=== PATIENT | female | born 1975 | race Caucasian/White ===

== ENCOUNTER → 2017-10-15 10:20 | Outpatient (CLI) | payer BC, SELFPAY ==
--- NOTE | 2017-10-15 10:28 | XR_ITS ---
XR ankle RT min 3V HISTORY: ITS.REASON: RT ANKLE INSTABILITY ORDERING PHYSICIAN: Shanda Sands PATIENT AGE: 41 years Comparison: None FINDINGS: No fracture or dislocation. No lytic or blastic change. There is normal mineralization.. The joint spaces are well-preserved. No significant degenerative/arthritic changes. No erosive changes evident. The ankle mortise is not widened. No talar dome defects IMPRESSION: Negative ankle, no acute finding
== END ==
PROVIDERS: PCP Nurse Practitioner Family; Visit Provider Nurse Practitioner Family
DX: M25.371 Other instability, right ankle (principal)
CPT/HCPCS: 73610

== ENCOUNTER → 2017-10-26 15:43 | Outpatient (CLI) | payer BC, SELFPAY ==
--- NOTE | 2017-10-26 15:46 | MR_ITS ---
MR ankle RT wo con CLINICAL INDICATION: Right-sided ankle pain laterally with popping sound ITS.REASON: RIGHT ANKLE INSTABILITY ORDERING PHYSICIAN: Shanda Sands PATIENT AGE: 41 years Comparison: 10/15/2017 FINDINGS: No ligamentous or tendinous abnormality is evident. There is a small amount fluid in the tibiofibular region. This is nonspecific. Injured talofibular ligament appears intact as does the posterior talofibular ligament and the tibiofibular ligaments. There is a small area of increased isointense T1 and slightly increased T2 signal along the lateral aspect of the waist of the talus and could be due to a small fracture or loose body. Is not readily apparent on the radiograph. CT may confirm if this is an area of clinical concern. IMPRESSION: 1. Possible small fracture or loose body along the neck of the talus laterally. CT may be of further value for confirmation. 2. Small ankle joint effusion. 3. Otherwise negative MRI of the right ankle
== END ==
PROVIDERS: Family Provider Nurse Practitioner Family; PCP Nurse Practitioner Family; Visit Provider Nurse Practitioner Family
DX: M25.371 Other instability, right ankle (principal)
CPT/HCPCS: 73721

== ENCOUNTER → 2017-11-02 07:54 | Outpatient (CLI) | payer BC, SELFPAY ==
--- NOTE | 2017-11-02 07:59 | CT_ITS ---
CT ankle RT wo con INDICATION: ITS.REASON: CLOSED NONDISPLACED FRACTURE RT TALUS, RT ANKLE INSTABILITY, right ankle pain ORDERING PHYSICIAN: Shanda Sands PATIENT AGE: 41 years COMPARISON: 10/26/2017 TECHNIQUE: Axial images are obtained without contrast. Sagittal and coronal reformatted images are reviewed as well. All CT scans at the facility use one or more dose reduction, viz: automated exposure control; ma/kV adjustment per patient size (including targeted exams where dose is matched to indication; i.e. head); or iterative reconstruction technique. FINDINGS: There was a question of a nondisplaced fracture involving the neck of the talus laterally on previous MRI. High-resolution CT performed for further evaluation. No definite fracture is apparent. There is a small osteophyte projecting off of the lateral aspect of the mid aspect of the talus which may correspond to the MRI abnormality. No lytic or blastic change. Small bone on the present within the talus and the navicular IMPRESSION: No acute fracture. Small osteophyte noted at the talus which may contribute to the MRI abnormality
== END ==
PROVIDERS: Family Provider Nurse Practitioner Family; PCP Nurse Practitioner Family; Visit Provider Nurse Practitioner Family
DX: S92.114D Nondisplaced fracture of neck of right talus, subsequent encounter for fracture with routine healing (principal); M25.371 Other instability, right ankle
CPT/HCPCS: 73700

== ENCOUNTER → 2017-11-30 08:25 | Outpatient (CLI) | payer BC, SELFPAY ==
--- NOTE | 2017-11-30 08:26 | XR_ITS ---
XR DEXA axial skeleton HISTORY: Amenorrhea, early menopause ITS.REASON: Z78.0 ORDERING PHYSICIAN: Josh Lam MD PATIENT AGE: 42 years COMPARISON: None FINDINGS: The BMD measured at the AP Spine L1-L4 femoral neck is 0.884 g/cm squared with a T score of -2.5. This is considered Osteoporotic according to the World Health Organization criteria. Fracture risk is High. Treatment is advised. IMPRESSION: Osteoporosis with high fracture risk. Treatment recommended. Recommend follow-up exam November 2018
== END ==
PROVIDERS: Family Provider Nurse Practitioner Family; PCP Nurse Practitioner Family; Visit Provider Obstetrics & Gynecology
DX: Z13.820 Encounter for screening for osteoporosis (principal); Z78.0 Asymptomatic menopausal state
CPT/HCPCS: 77080

== ENCOUNTER 2018-01-07 08:38 | Outpatient (CLI) | payer BC, SELFPAY ==
[2018-01-07 09:00] VITALS: BP 112/71; PULSE 95; RESP 20; TEMP 37.1; O2SAT 96
[2018-01-07 09:15] VITALS: BP 113/72; PULSE 66; RESP 20; TEMP 36.9; O2SAT 96
== END 2018-01-07 09:20 | disposition home or self-care (01) ==
LOC: INF 08:39
PROVIDERS: Family Provider Nurse Practitioner Family; PCP Nurse Practitioner Family; Visit Provider Obstetrics & Gynecology
DX: M81.0 Age-related osteoporosis without current pathological fracture (principal)
CPT/HCPCS: 96372; J0897

== ENCOUNTER 2018-07-08 08:56 | Outpatient (CLI) | payer BC, SELFPAY ==
[2018-07-08 09:08] VITALS: BP 124/76; PULSE 104; RESP 18; TEMP 36.6; O2SAT 97
== END 2018-07-08 09:40 | disposition home or self-care (01) ==
LOC: INF 08:56
PROVIDERS: Visit Provider Nurse Practitioner Obstetrics & Gynecology
DX: M81.0 Age-related osteoporosis without current pathological fracture (principal)
CPT/HCPCS: 96372; J0897

== ENCOUNTER → 2018-10-16 07:37 | Outpatient (CLI) | payer BC, SELFPAY ==
--- NOTE | 2018-10-16 07:43 | US_ITS ---
US liver HISTORY: ITS.REASON: ELEVATED LIVER ENZYMES ORDERING PHYSICIAN: Nora Benoit MD PATIENT AGE: 42 years COMPARISON: None FINDINGS: PANCREAS:Unremarkable. No obvious mass or abnormal fluid collection. No ductal dilatation LIVER:No focal liver lesions demonstrated. Homogeneous echogenicity. No intrahepatic biliary ductal dilatation evident. There is appropriate direction of blood flow within a nondilated portal vein RIGHT KIDNEY:Unremarkable. Normal size and echogenicity. No hydronephrosis LEFT KIDNEY:Unremarkable. No hydronephrosis. Normal size and echogenicity. Prior cholecystectomy.. Common bile duct is normal at 3 mm. IMPRESSION: Prior cholecystectomy otherwise negative right upper quadrant/hepatic ultrasound.
== END ==
PROVIDERS: PCP Family Medicine; Visit Provider Family Medicine
DX: R74.8 Abnormal levels of other serum enzymes (principal)
CPT/HCPCS: 76705

== ENCOUNTER → 2019-10-20 09:44 | Outpatient (CLI) | payer BC, SELFPAY ==
--- NOTE | 2019-10-20 09:58 | XR_ITS ---
PROCEDURE: XR LUMBAR SPINE MIN 4V CLINICAL INDICATION: LOW BACK PAIN COMPARISON: LS5 LUMBAR SPINE 5 VIEWS from 09/04/2016 FINDINGS: There are no significant changes. Joint spaces are intact. Mild bilateral L4-5 and L5-S1 facet arthropathy again demonstrated. There is no fracture or dislocation. SI joints are intact. IMPRESSION: No fracture, mild L4-5 and L5-S1 facet arthropathy Dictated by: Travis Nichols 10/20/2019 10:36 Electronically signed by Travis Nichols in [place] 10/20/2019 10:36
== END ==
PROVIDERS: PCP Family Medicine; Visit Provider Nurse Practitioner Family
DX: M54.5 Low back pain (principal)
CPT/HCPCS: 72110

== ENCOUNTER → 2020-01-01 11:58 | Outpatient (CLI) | payer BC, SELFPAY ==
[2020-01-01 15:44] LABS: Coronavirus 19 IgG Antibody Negative (Negative); Coronavirus 19 IgM Antibody Negative (Negative)
== END ==
PROVIDERS: PCP Family Medicine; Visit Provider Nurse Practitioner Family
DX: Z03.818 Encounter for observation for suspected exposure to other biological agents ruled out (principal)
CPT/HCPCS: 36415; 86328

== ENCOUNTER 2020-07-11 17:25 | Emergency (ER) | payer BC, SELFPAY ==
[2020-07-11 17:38] VITALS: BP 121/93; PULSE 114; RESP 20; TEMP 36.1; O2SAT 96; BMI 32.4
--- NOTE | 2020-07-11 18:16 | HMH.EDUTC ---
[facility] [place] Disposition Clinical Impression: Laceration of left upper arm Disposition: Home, Self-Care Condition on Discharge: Good Instructions: How to Care for a Laceration After Repair, DI for Laceration Repair -- Simple Additional Instructions: Keep the wound clean and dry. Keep a dressing on it if you are going to be getting it dirty. Watch the for signs of infection, such as redness, swelling, drainage, fever. etc. Take tylenol or ibuprofen for pain. Take the antibiotics (keflex) as directed. Follow up with your regular doctor. Return in 7 to 10 days to have the sutures removed. GO TO THE ER FOR ANY WORSENING SYMPTOMS OR CONCERNS. Prescriptions: cephALEXin [cephALEXin 500mg capsule] 500 mg PO Q6H 10 Days #40 cap Transmission Status: Received by [id number] Referrals: Shanda Sands APRN [Primary Care Provider] - Time of Disposition: 18:19 Medical Decision Making - Medical Records Medical records reviewed: No: I reviewed the patient's medical records. - Jason Inquiry Pt receiving controlled substance: No Vital Signs: 07/11/20 17:38 07/11/20 18:18 Temperature 97 F L 98 F Temperature Source Tympanic Pulse Rate 105 H Pulse Rate [Right] 114 H Respiratory Rate 20 16 Blood Pressure 124/89 Blood Pressure [Right Arm] 121/93 H Blood Pressure Mean [Right Arm] 102 Blood Pressure Source [Right Arm] Automatic Cuff Blood Pressure Position [Right Arm] Sitting 02 Sat by Pulse Oximetry 96 Oxygen Delivery Method Room Air Orders (Tests/Meds): ED MEDICATIONS Discontinued Medications Generic Name Dose Route Start Last Admin Trade Name Frantz PRN Reason Stop Dose Admin Lidocaine HCl 5 ml 07/11/20 17:46 07/11/20 17:57 Lidocaine 1% 5ml Pf Vial IJ 07/11/20 17:47 5 ml ONCE ONE Administration Tetanus/Reduced Diphtheria/Acell Pertussis 0.5 ml 07/11/20 17:42 07/11/20 17:56 Tet/Diphth/Pert-Adult 0.5ml Syringe IM 07/11/20 17:43 0.5 ml .ONCE ONE Administration [facility] HPI - General Stated complaint: AO 07/11 fell injured L Elbow Time Seen by Provider: 07/11/20 17:50 Mode of Arrival: Ambulatory Source of Information: Spouse Limitations: No Limitations Description of Symptoms (Recalled from Triage Doc. by RN): FELL OVER FIRE PLACE AND HIT HER LEFT ELBOW ITS LACERATED ABOUT A HALF INCH. HEENT Symptoms (Recalled from RN notes): No Resp Symptoms (Recalled from RN notes): No Skin Symptoms (Recalled from RN notes): Yes (LACERATION ON L ELBOW) MS Symptoms (Recalled from RN notes): No Functional Status (Recalled from RN notes): NA - History of Present Illness Provider Complaint: She states that she fell while out of town yesterday evening and hit her elbow. She has a laceration on her left elbow. This occured at around midnight last night (18 hours ago). - Related Data Home Medications Medication Instructions Recorded Confirmed cyclobenzaprine 10 mg tablet 10 mg PO NEEDED PRN 30 Days #90 05/10/17 05/23/19 diclofenac sodium 75 mg 75 mg PO DAILY 90 Days #180 05/10/17 05/23/19 tablet,delayed release primidone 50 mg tablet 100 mg PO QID tab 05/10/17 05/23/19 cholecalciferol (vitamin D3) 50 2,000 unit PO DAILY cap 11/26/17 05/23/19 mcg (2,000 unit) capsule duloxetine 30 mg capsule,delayed 30 mg PO BID 11/26/17 05/23/19 release gabapentin 100 mg capsule 100 mg PO QHS 11/26/17 05/23/19 Montelukast Sodium [Singulair] 10 mg PO QAM 07/08/18 05/23/19 Previous Rx's Medication Instructions Recorded denosumab 60 mg/mL subcutaneous 60 mg SQ [id number] #1 ml 01/13/19 syringe [id number]-[id number]-LD 10 ml PO Q4-6H PRN #200 ml 05/23/19 2 mg-30 mg-10 mg/5 mL oral syrup cephALEXin [cephALEXin 500mg 500 mg PO Q6H 10 Days #40 cap 07/11/20 capsule] Allergies Allergy/AdvReac Type Severity Reaction Status Date / Time azithromycin [AZITHROMYCIN] Allergy Mild I-HIVES Verified 05/23/19 11:33 - Worker's Comp Is this a Worker's Comp
[2020-07-11 18:18] VITALS: BP 124/89; PULSE 105; RESP 16; TEMP 36.6
== END 2020-07-11 18:26 | disposition home or self-care (01) ==
PROVIDERS: Emergency Provider Nurse Practitioner Family; PCP Nurse Practitioner Family
DX: S51.012A Laceration without foreign body of left elbow, initial encounter (principal); W01.0XXA Fall on same level from slipping, tripping and stumbling without subsequent striking against object, initial encounter; Y92.019 Unspecified place in single-family (private) house as the place of occurrence of the external cause; Z23 Encounter for immunization; M81.0 Age-related osteoporosis without current pathological fracture; M79.7 Fibromyalgia
CPT/HCPCS: 12001; 90471; 90715; 99202; G0463

== ENCOUNTER 2020-08-30 14:07 | Emergency (ER) | payer BC, SELFPAY ==
[2020-08-30] VITALS (7 sets, daily range): BP systolic 81–121; BP diastolic 44–78; PULSE 76–106; RESP 18; TEMP 36.6–36.8; O2SAT 94–99; BMI 32.9
--- NOTE | 2020-08-30 15:21 | XR_ITS ---
PROCEDURE: XR CHEST PORTABLE CLINICAL HISTORY: weakness, covid 19 + COMPARISON: No exams were available for comparison FINDINGS: The cardiomediastinal silhouette and pulmonary vascularity are within normal limits. Patchy ground-glass density is present in the right midlung laterally and in both lower lobes. No effusions No acute bony abnormalities. IMPRESSION: Patchy ground-glass density in both lower lobes suspicious for Covid19 pneumonia Dictated by: Celestine Gutierrez MD 08/30/2020 15:52 Celestine Gutierrez MD in [place] 08/30/2020 15:52
[2020-08-30 15:35] LABS: Basophils % 0.5 % (0.1-2.0); Eosinophils % 0.6 % (0.1-12.0); Hematocrit 40.8 % (37.0-47.0); Hemoglobin 13.5 g/dL (12.2-16.2); Lymphocytes # 1.5 K/mm3 (0.7-4.5); Lymphocytes % 43.2 % (10-50); Mean Corpuscular HGB Conc 33.2 g/dL (31.8-35.4); Mean Corpuscular Hemoglobin 29.2 pg (27.0-31.2); Mean Platelet Volume 8.2 fl (7.4-10.4); Monocytes # 0.2 K/mm3 (0.1-1.0); Monocytes % 6.4 % (1.7-9.3); Neutrophils # 1.7 K/mm3 (1.8-7.8); Neutrophils % 49.3 % (37.0-80.0); Platelet Count 182 K/mm3 (142-424); Red Blood Count 4.63 M/mm3 (4.20-5.40); Red Cell Distribution Width 12.7 % (11.5-17.5); White Blood Count 3.4 K/mm3 (4.8-10.8)
[2020-08-30 15:41] LABS: Alanine Aminotransferase 45 U/L (12-78); Albumin Level 4.3 g/dl (3.5-5.0); Albumin/Globulin Ratio 1.4 (1.1-1.8); Alkaline Phosphatase 93 U/L (38-126); Anion Gap 11.6 mEq/L (5-15); Aspartate Amino Transferase 34 U/L (14-36); Bilirubin,Total 0.4 mg/dl (0.2-1.3); Blood Urea Nitrogen 7 mg/dl (7-17); Carbon Dioxide 24 mmol/L (22.0-30.0); Chloride 105 mmol/L (98-107); Creatinine Clearance Estimated 127 mL/min (50-200); Estimated Glomerular Filt Rate 78 ml/min (>60); GFR (African American) 94 ML/MIN (>60); Glucose 93 mg/dl (74-100); Potassium 3.6 mmoL/L (3.5-5.1); Sodium 137 mmol/L (136-145); Total Protein,Serum 7.3 g/dl (6.3-8.2)
--- NOTE | 2020-08-30 16:30 | HMH.EDGENADL ---
ED Disposition Clinical Impression: Weakness Disposition: Home, Self-Care Condition on Discharge: Good Instructions: Nausea and Vomiting-Adult Additional Instructions: Checked your labs and they showed no acute findings chest x-ray shows bilateral pneumonia consistent with COVID-19 we have given you IV fluids please follow-up as needed Prescriptions: Ondansetron [Zofran 4mg ODT] 4 mg PO NEEDED PRN 10 Days #14 tab.rapdis PRN Reason: Nausea Transmission Status: Pending to [id number] Referrals: Nora Benoit MD [Primary Care Provider] - Forms: Work/School Release Time of Disposition: 16:36 - Critical Care Critical Care Time: No Attestation: On 08/30/20, the high probability of a clinically significant, sudden or life threatening deterioration of the following system(s) required my full and direct attention, intervention and personal management. The time I documented below is in addition to time spent performing reported procedures but includes the following listed in this critical care notation. Medical Decision Making - Medical Records Medical records reviewed: Yes: I reviewed the patient's medical records. MR Comment: PATIENT REPORTS SHE WAS DIAGNOSED WITH COVID ON 08/25/20. PT REPORTS FEELING WEAK, N/V/D AND JUST MALAISE. CBC and CMP and these showed no acute findings; chest x-ray shows bilateral groundglass opacities consistent with Covid pneumonia patient states she is feeling much better after hydration and is ready to go home - Jason Inquiry Pt receiving controlled substance: No Vital Signs: 08/30/20 14:08 Temperature 97.9 F Temperature Source Oral Pulse Rate [Right] 106 H Respiratory Rate 18 Blood Pressure [Right Arm] 92/56 L Blood Pressure Mean [Right Arm] 68 02 Sat by Pulse Oximetry 99 Oxygen Delivery Method Room Air - Lab Data Lab results reviewed: Yes: I reviewed the patient's lab results. Lab Results 08/30/20 14:55: WBC 3.4 L, RBC 4.63, Hgb 13.5, Hct 40.8, MCV 88.0, MCH 29.2, MCHC 33.2, RDW 12.7, Plt Count 182, MPV 8.2, Neut % (Auto) 49.3, Lymph % (Auto) 43.2, [place] % (Auto) 6.4, Eos % (Auto) 0.6, Baso % (Auto) 0.5, Neut # (Auto) 1.7 L, Lymph # (Auto) 1.5, [place] # (Auto) 0.2, Eos # (Auto) 0.0, Baso # (Auto) 0.0 08/30/20 14:55: Sodium 137, Potassium 3.6, Chloride 105, Carbon Dioxide 24, Anion Gap 11.6, BUN 7, Creatinine 0.80, Estimated Creat Clear 127, Estimated GFR 78, Est GFR ( Amer) 94, Glucose 93, Calcium 9.0, Total Bilirubin 0.4, AST 34, ALT 45, Alkaline Phosphatase 93, Total Protein 7.3, Albumin 4.3, Globulin 3.0, Albumin/Globulin Ratio 1.4 Result diagrams: 08/30/20 14:55 08/30/20 14:55 Orders (Tests/Meds): ED MEDICATIONS Discontinued Medications Generic Name Dose Route Start Last Admin Trade Name Freq PRN Reason Stop Dose Admin Sodium Chloride 1,000 mls @ 999 mls/hr 08/30/20 15:30 08/30/20 15:24 Sod Chlor 0.9% 1000ml Bag IV 08/30/20 16:30 999 mls/hr .Q1H1M KARI Administration Ondansetron HCl 4 mg 08/30/20 15:22 08/30/20 15:24 Ondansetron 4mg/2ml Vial IV 08/30/20 15:23 4 mg ONCE ONE Administration ORDERS Category Date Time Status Covid-19 Nasal PCR ([facility]) Routine Lab 08/30/20 15:00 Received Covid-19 Nasal PCR ([facility]) Routine Lab 08/30/20 15:00 Received Lactic Acid Stat Lab 08/30/20 14:55 Received Blood Culture Stat Micro 08/30/20 15:05 Received General Adult HPI - General Chief complaint: Nausea/Vomiting/Diarrhea Stated complaint: covid+, weakness Time Seen by Provider: 08/30/20 16:21 Mode of Arrival: Ambulatory Source of Information: Patient Limitations: No Limitations Description of Symptoms (Recalled from ER Triage Doc. by RN): PATIENT REPORTS SHE WAS DIAGNOSED WITH COVID ON 08/25/20. PT REPORTS FEELING WEAK, N/V/D AND JUST MALAISE. - History of Present Illness HPI narrative: PATIENT REPORTS SHE WAS DIAGNOSED WITH COVID ON 08/25/20. PT REPORTS FEELING WEAK, N/V/D AND JUST MALAISE. Onset (ago): h
[2020-08-30 17:01] LABS: Lactic Acid 0.6 mmol/L (0.7-2.1)
--- NOTE | 2020-08-30 19:17 | PC.NURSE ---
called and spoke to mrs. leyva about her positive covid. she informed she was tested Sunday and was positive, i informed her to continue to follow the health department recommendations.
== END 2020-08-30 17:10 | disposition home or self-care (01) ==
PROVIDERS: Emergency Provider Emergency Medicine; PCP Family Medicine
DX: U07.1 COVID-19 (principal); M81.0 Age-related osteoporosis without current pathological fracture; M79.7 Fibromyalgia
CPT/HCPCS: 71045; 80053; 83605; 85025; 87040; 96365; 99283; J2405; U0003

== ENCOUNTER → 2020-11-30 20:59 | Outpatient (CLI) | payer BC, SELFPAY | PROVIDERS: Visit Provider Nurse Practitioner Family | DX: Z11.52 Encounter for screening for COVID-19 (principal) | CPT/HCPCS: U0003 ==

== ENCOUNTER → 2021-08-29 09:57 | Outpatient (CLI) | payer BC, SELFPAY ==
--- NOTE | 2021-08-29 10:03 | XR_ITS ---
FINAL REPORT CLINICAL HISTORY: LT KNEE PAIN FINDINGS: LEFT KNEE: Three views of the left knee were obtained. There is no acute fracture or dislocation. Mild degenerative change with medial compartment narrowing. There is no joint effusion. Soft tissues are unremarkable. IMPRESSION: Mild degenerative change. Reviewed, Interpreted and Dictated by Jose Farris III, MD Transcribed by Sachin Craig Authenticated by Jose Farris III, MD on 08/29/2021 11:48:06 AM [facility]
--- NOTE | 2021-08-29 10:03 | XR_ITS ---
FINAL REPORT CLINICAL HISTORY: RT KNEE PAIN, knot on lateral side and under patella FINDINGS: RIGHT KNEE: Three views of the right knee were obtained. There is no acute fracture or dislocation. Mild degenerative change with medial compartment narrowing. There is no joint effusion. Soft tissues are unremarkable. IMPRESSION: Mild degenerative change. Reviewed, Interpreted and Dictated by Jose Farris III, MD Transcribed by Sachin Craig Authenticated by Jose Farris III, MD on 08/29/2021 11:48:11 AM [facility]
== END ==
PROVIDERS: PCP Nurse Practitioner Family; Visit Provider Nurse Practitioner Family
DX: M25.562 Pain in left knee (principal); M25.561 Pain in right knee
CPT/HCPCS: 73562

== ENCOUNTER → 2021-09-12 14:09 | Outpatient (CLI) | payer BC, SELFPAY | PROVIDERS: Visit Provider Surgery | DX: Z01.812 Encounter for preprocedural laboratory examination (principal); Z11.52 Encounter for screening for COVID-19; R13.10 Dysphagia, unspecified; Z13.810 Encounter for screening for upper gastrointestinal disorder | CPT/HCPCS: C9803; U0003; U0005 ==

== ENCOUNTER 2021-09-13 08:34 | Day surgery (SDC) | payer BC, SELFPAY ==
[2021-09-12 12:28] VITALS: BMI 31.6
[2021-09-13 08:54] VITALS: BP 122/79; PULSE 97; RESP 18; TEMP 36.3; O2SAT 989
[2021-09-13 10:00] VITALS: O2SAT 97
--- NOTE | 2021-09-13 10:14 | HMH.SCOPE ---
- Procedure: Date: 09/13/21 Patient Date of :: 1975 Procedure Performed:: Esophagogastroduodenoscopy with biopsy Indications:: Dysphagia Performing Provider:: Freddie Hernández MD Referring Provider:: . Sedation:: Monitored anesthesia care Procedure:: After informed consent was obtained the patient was taken to the endoscopy suite. Sedation ensued after the patient was transferred to the left lateral decubitus position. Pulse, blood pressure, and oxygen saturation were monitored throughout the procedure. The endoscope was advanced beyond the duodenal bulb. Retroflexion within the gastric lumen was accomplished. The gastroscope was carefully removed and the patient was transferred to recovery in stable condition. Please see findings and specimens below for detail. Findings:: Distal esophagitis with focal shallow ulceration Small sliding hiatal hernia Specimens:: Antral biopsy Distal esophageal biopsy Recommendations:: Proton pump inhibition Likely repeat EGD in 6-8 weeks Barium swallow and possible modified barium swallow to be considered Complications:: No immediate Estimated blood obtained (mL): 1
[2021-09-13 10:15] VITALS: BP 109/75; PULSE 88; RESP 16; TEMP 36.6; O2SAT 93
--- NOTE | 2021-09-13 10:17 | HMH.ANESCL ---
[facility] Anesthesia Checklist - Structural Data Admitted From: Home Planned Operative Procedure/s: egd Consent for Planned Operative Procedure(s) Verified: Yes - Airway Assessment C-Spine Mobility Assessed: Yes TMJ Mobility Assessed: Yes Dentition: Good Dentition - Neurological Assessment Level of Consciousness: Awake, Alert, Appropriate - Anesthesia Plan Anesthesia Risk discussed: Yes Anesthesia Plan: Verified ASA Class: II Anesthesia Type: MAC [facility] History I have reviewed the patient's past medical history: Yes Medical History: Reports:: Osteoporosis Denies:: Cancer, Diabetes Mellitus Type 1, Diabetes Mellitus Type 2, Internal Pacemaker, MRSA, Seizures *Have you ever received a pneumonia vaccine?: No *Have you received a flu vaccine this season?: No Other Medical History: Reports: Fibromyalgia, Osteoporosis Anesthesia experience/problems:: none Laterality Cases: Bilateral: Other Other Surgeries: Yes: Hysterectomy-Total, Tubal Ligation, Other. No: Pacemaker Amputation: No Fractures: No - *Social History Last grade of school completed: Some college Smoking Status: Never smoker Alcohol Intake: never Substance Use Type: denies use *Occupational Status:: unemployed Housing: house Household Members: spouse *Travel in the last 8 weeks: None Family Hx:: Cancer, Diabetes, Heart Attack, Hypertension
[2021-09-13 10:25] VITALS: BP 104/82; PULSE 89; RESP 16; O2SAT 93
[2021-09-13 10:35] VITALS: BP 112/69; PULSE 78; RESP 16; O2SAT 96
[2021-09-13 10:55] VITALS: BP 116/82; PULSE 77; RESP 16; TEMP 36.6; O2SAT 98
--- NOTE | 2021-09-13 10:59 | SUR.PHASEII ---
Pt instructed to follow clear liquid today, followed by full liquid for a few days and then soft diet til follow-up. Pt and spouse aware that MD instructed use of OTC nexium twice daily as well.
== END 2021-09-13 10:45 | disposition home or self-care (01) ==
LOC: OUTP 08:35
PROVIDERS: PCP Nurse Practitioner Family; Visit Provider Surgery
PROC: 0DJ08ZZ Inspection of Upper Intestinal Tract, Via Natural or Artificial Opening Endoscopic (ICD-10-PCS; CPT 43235; principal; 2021-09-13 10:00)
DX: K22.10 Ulcer of esophagus without bleeding (principal); K44.9 Diaphragmatic hernia without obstruction or gangrene; M79.7 Fibromyalgia; M81.0 Age-related osteoporosis without current pathological fracture; Z79.899 Other long term (current) drug therapy; Z80.9 Family history of malignant neoplasm, unspecified; Z83.3 Family history of diabetes mellitus; Z82.3 Family history of stroke; Z82.49 Family history of ischemic heart disease and other diseases of the circulatory system; Z88.1 Allergy status to other antibiotic agents
CPT/HCPCS: 43239

== ENCOUNTER → 2021-10-05 08:46 | Outpatient (CLI) | payer BC, SELFPAY ==
--- NOTE | 2021-10-05 08:47 | FL_ITS ---
FINAL REPORT CLINICAL HISTORY: trouble swallowing..42 fluoro time FINDINGS: ESOPHAGRAM HISTORY: Abdominal pain, nausea. PROCEDURE: The patient ingested barium. Effervescent crystals were also administered. Spot and overhead films were obtained. FINDINGS: There is a small sliding-type hiatal hernia. There is an area of narrowing in the distal esophagus which does not allow for passage of a 13 mm barium tablet. There is mucosal irregularity at this level. IMPRESSION: Distal esophageal stricture with mucosal irregularity. This could be neoplastic or inflammatory. Correlation with recent endoscopy results recommended. Films reviewed , interpreted and dictated by Dr. Farris Transcribed by Abelardo Jo PA-C. Reviewed, Interpreted and Dictated by Jose Farris III, MD Transcribed by TITO Quiles Authenticated and [facility]
== END ==
PROVIDERS: PCP Nurse Practitioner Family; Visit Provider Surgery
DX: R13.10 Dysphagia, unspecified (principal)
CPT/HCPCS: 74220

== ENCOUNTER → 2021-11-05 10:41 | Outpatient (CLI) | payer BC, SELFPAY | PROVIDERS: PCP Family Medicine; Visit Provider Surgery | DX: Z01.812 Encounter for preprocedural laboratory examination (principal); Z20.822 Contact with and (suspected) exposure to COVID-19; Z13.810 Encounter for screening for upper gastrointestinal disorder | CPT/HCPCS: C9803; U0003; U0005 ==

== ENCOUNTER 2021-11-08 09:19 | Day surgery (SDC) | payer BC, SELFPAY ==
[2021-11-07 10:15] VITALS: BMI 31.4
[2021-11-08 09:59] VITALS: BP 112/81; PULSE 102; RESP 18; O2SAT 95
[2021-11-08 10:41] VITALS: O2SAT 95
--- NOTE | 2021-11-08 10:56 | HMH.SCOPE ---
- Procedure: Date: 11/08/21 Patient Date of :: 1975 Procedure Performed:: Esophagogastroduodenoscopy with biopsy Indications:: Dysphagia Distal esophagitis with ulceration Recent esophagogastroduodenoscopy revealed distal esophagitis with ulceration. Multiple biopsies revealed benign pathology. Follow-up barium swallow did reveal distal esophageal stricture with mucosal irregularity that was felt to either be inflammatory or neoplastic. She has been on proton pump inhibition with improvement of symptomatology. Performing Provider:: Freddie Hernández MD Referring Provider:: . Sedation:: Monitored anesthesia care Procedure:: After informed consent was obtained the patient was taken to the endoscopy suite. Sedation ensued after the patient was transferred to the left lateral decubitus position. Pulse, blood pressure, and oxygen saturation were monitored throughout the procedure. The endoscope was advanced into the gastric lumen. Retroflexion within the gastric lumen was accomplished. The gastroscope was carefully removed and the patient was transferred to recovery in stable condition. Please see findings and specimens below for detail. Findings:: Inflammatory changes between 25 cm and gastroesophageal junction Gastroesophageal junction at 38 cm Multiple small ulcerations remain; however, overall size of ulcerative component seems somewhat improved Possible secondary fungal overgrowth noted Specimens:: Multiple biopsies at 36 cm Multiple biopsies at 34 cm Multiple biopsies at 32 cm Recommendations:: Follow-up pathology Continue proton pump inhibition Likely begin cholestyramine Will begin Diflucan Complications:: No immediate Estimated blood obtained (mL): 1
[2021-11-08 11:02] VITALS: BP 99/65; PULSE 94; RESP 18; TEMP 36.1; O2SAT 96
[2021-11-08 11:13] VITALS: BP 133/69; PULSE 98; RESP 18; O2SAT 94
[2021-11-08 11:20] VITALS: BP 122/85; PULSE 89; RESP 18; O2SAT 96
== END 2021-11-08 11:30 | disposition home or self-care (01) ==
LOC: OUTP 09:20
PROVIDERS: PCP Nurse Practitioner Family; Visit Provider Surgery
PROC: 0DJ08ZZ Inspection of Upper Intestinal Tract, Via Natural or Artificial Opening Endoscopic (ICD-10-PCS; CPT 43235; principal; 2021-11-08 10:30)
DX: R13.10 Dysphagia, unspecified (principal); K22.10 Ulcer of esophagus without bleeding; E11.9 Type 2 diabetes mellitus without complications; I10 Essential (primary) hypertension; I25.10 Atherosclerotic heart disease of native coronary artery without angina pectoris; I25.2 Old myocardial infarction
CPT/HCPCS: 43239

== ENCOUNTER 2022-01-29 12:11 | Emergency (ER) | payer BC, SELFPAY ==
[2022-01-29 12:30] VITALS: BP 130/71; PULSE 93; RESP 17; TEMP 36.8; O2SAT 98; BMI 31.8
--- NOTE | 2022-01-29 12:46 | EXP.UTC ---
Discharge Plan Disposition Patient Disposition: Home, Self-Care Condition: Good Prescriptions Prescriptions: New amoxicillin 875 mg tablet 875 mg PO BID Qty: 20 0RF methylprednisolone [Medrol (Maikel)] 4 mg tablets,dose pack See Rx Instructions .Route .COMPLEX 6 Days Qty: 21 0RF Rx Instructions: taper pack; No Action primidone 50 mg tablet 100 mg PO QID cyclobenzaprine 10 mg tablet 10 mg PO NEEDED PRN (Reason: muscle spasms) 30 Days Qty: 90 Label Comments: diclofenac sodium 75 mg tablet,delayed release (DR/EC) 75 mg PO DAILY 90 Days Qty: 180 Label Comments: duloxetine 30 mg capsule,delayed release(DR/EC) 30 mg PO BID amitriptyline 25 MG tablet 25 mg PO DAILY cetirizine 10 MG capsule 10 mg PO DAILY fluconazole 40 MG/ML bottle 5 ml PO DAILY Qty: 150 0RF Referrals Follow up/Referrals: Shanda Sands APRN [Primary Care Provider] - See instructions Activity Restrictions/Add. Instructions Additional Instructions/Restrictions: Take medication as prescribed Follow up with your Family Doctor if no improvement or any worsening of symptoms Return if needed Straight to ER if any life threatening symptoms Clinical Impressions Clinical Impression: Otitis media Instructions Patient Instructions: Middle Ear Infection Discharge ED Provider: Jayleen Lucas [facility] General Stated complaint: ear pain in Lt ear Mode of Arrival: Ambulatory Source of Information: Patient Limitations: No Limitations Time Seen by Provider: 01/29/22 12:46 Description of Symptoms (Recalled from Triage Doc. by RN): PATIENT C/O LEFT EAR PAIN X 3 DAYS HEENT Symptoms (Recalled from RN notes): Yes Resp Symptoms (Recalled from RN notes): No Skin Symptoms (Recalled from RN notes): No MS Symptoms (Recalled from RN notes): No Functional Status (Recalled from RN notes): WNL History of Present Illness Provider Complaint: Patient states that she has been having pain in her left ear for about 3 days that has continued to get worse States that she is having pressure like feeling and feeling of fullness States that today it was hurting worse so she came in to get it checked out Related Data Home Medications Medication Instructions Recorded Confirmed cyclobenzaprine 10 mg tablet 10 mg PO NEEDED PRN muscle 05/10/17 11/23/21 spasms 30 days ##90 diclofenac sodium 75 mg 75 mg PO DAILY Pain 90 days ##180 05/10/17 11/23/21 tablet,delayed release primidone 50 mg tablet 100 mg PO QID seizures 05/10/17 11/23/21 duloxetine 30 mg capsule,delayed 30 mg PO BID Depression 11/26/17 11/23/21 release amitriptyline 25 mg tablet 25 mg PO DAILY mood 09/12/21 11/23/21 cetirizine 10 mg capsule 10 mg PO DAILY allergies 09/12/21 11/23/21 Previous Rx's Medication Instructions Recorded fluconazole 40 mg/mL oral 5 ml PO DAILY #150 mL 11/08/21 suspension amoxicillin 875 mg tablet 875 mg PO BID #20 tabs 01/29/22 methylprednisolone 4 mg tablets in See Rx Instructions .Route 01/29/22 a dose pack (Medrol (Maikel)) .COMPLEX 6 days #21 tabs Allergies Allergy/AdvReac Type Severity Reaction Status Date / Time azithromycin [AZITHROMYCIN] Allergy Mild I-HIVES Verified 11/23/21 14:24 Worker's Comp Is this a Worker's Comp case?: No [facility] Medical History (Updated 01/29/22 @ 12:55 by Jayleen Lucas APRN) Anxiety Surgical History (Updated 01/29/22 @ 12:37 by Debbie Anderson RN) History of cholecystectomy History of hysterectomy Social History Smoking Status: Never smoker alcohol intake: never substance use type: denies use current occupational status: disabled Travel in the last 8 weeks: None household members: spouse housing: house caffeine: Yes ROS Obtained: Yes All systems reviewed & no additional complaints except as documented and Yes Systems reviewed as appropriate & no additional
[2022-01-29 12:55] VITALS: BP 130/71; PULSE 93; RESP 17; TEMP 36.8; O2SAT 98
== END 2022-01-29 12:59 | disposition home or self-care (01) ==
PROVIDERS: Emergency Provider Nurse Practitioner; PCP Nurse Practitioner Family
DX: H66.90 Otitis media, unspecified, unspecified ear (principal)
CPT/HCPCS: 99212; G0463

== ENCOUNTER 2022-02-06 17:47 | Emergency (ER) | payer BC, SELFPAY ==
[2022-02-06 18:10] VITALS: BP 124/85; PULSE 98; RESP 16; TEMP 36.9; O2SAT 100; BMI 30.4
[2022-02-06 18:32] VITALS: BP 124/85; PULSE 98; RESP 16; TEMP 36.9; O2SAT 100
--- NOTE | 2022-02-06 18:44 | EXP.UTC ---
Discharge Plan Disposition Patient Disposition: Home, Self-Care Condition: Good Prescriptions Prescriptions: No Action primidone 50 mg tablet 100 mg PO QID cyclobenzaprine 10 mg tablet 10 mg PO NEEDED PRN (Reason: muscle spasms) 30 Days Qty: 90 Label Comments: diclofenac sodium 75 mg tablet,delayed release (DR/EC) 75 mg PO DAILY 90 Days Qty: 180 Label Comments: duloxetine 30 mg capsule,delayed release(DR/EC) 30 mg PO BID amitriptyline 25 MG tablet 25 mg PO DAILY cetirizine 10 MG capsule 10 mg PO DAILY fluconazole 40 MG/ML bottle 5 ml PO DAILY Qty: 150 0RF amoxicillin 875 mg tablet 875 mg PO BID Qty: 20 0RF methylprednisolone [Medrol (Maikel)] 4 mg tablets,dose pack See Rx Instructions .Route .COMPLEX 6 Days Qty: 21 0RF Rx Instructions: taper pack; Referrals Follow up/Referrals: Shanda Sands APRN [Primary Care Provider] - See instructions Activity Restrictions/Add. Instructions Additional Instructions/Restrictions: *Monitor Temp, Over the counter Motrin or Tylenol as directed/as needed Tylenol every 4 hours and Motrin every 6 hours (as long as your family doctor has told you that you can take it) for fever or pain. and straight to ER if unable to lower temp less than 101.0 after medication given *Warm salt water gargles may help to soothe the throat *Throat Lozenges? *Warm fluids like tea with honey may help to soothe the throat? *Sleep elevated *Humidifier/Vaporizer Follow up IMMEDIATELY for new or worsening symptoms or no Noticeable improvement over the next 48-72 hours. 911 for difficulty breathing or swallowing You were tested for today for COVID19 your test result should be back in the next 24-48 hours, you may check your results on the [facility] Make sure to take your Vitamins Vit. C Vit D and Zinc if you can take them Clinical Impressions Clinical Impression: Exposure to COVID-19 virus Stand Alone Forms Stand Alone Forms: Work/School Release Instructions Patient Instructions: Coronavirus Disease 2019, Preventing the Spread of Coronavirus Discharge Instructions Discharge ED Provider: Jayleen Lucas [facility] [place] General Stated complaint: covid expose Mode of Arrival: Ambulatory Source of Information: Patient Limitations: No Limitations Time Seen by Provider: 02/06/22 18:44 Description of Symptoms (Recalled from Triage Doc. by RN): COVID TEST D/T EXPOSURE. DENIES SYMPTOMS HEENT Symptoms (Recalled from RN notes): No Resp Symptoms (Recalled from RN notes): No Skin Symptoms (Recalled from RN notes): No MS Symptoms (Recalled from RN notes): No Functional Status (Recalled from RN notes): WNL History of Present Illness Provider Complaint: Patient states she has been around her that tested positive at home earlier for COVID and she wanted to get tested Related Data Home Medications Medication Instructions Recorded Confirmed cyclobenzaprine 10 mg tablet 10 mg PO NEEDED PRN muscle 05/10/17 11/23/21 spasms 30 days ##90 diclofenac sodium 75 mg 75 mg PO DAILY Pain 90 days ##180 05/10/17 11/23/21 tablet,delayed release primidone 50 mg tablet 100 mg PO QID seizures 05/10/17 11/23/21 duloxetine 30 mg capsule,delayed 30 mg PO BID Depression 11/26/17 11/23/21 release amitriptyline 25 mg tablet 25 mg PO DAILY mood 09/12/21 11/23/21 cetirizine 10 mg capsule 10 mg PO DAILY allergies 09/12/21 11/23/21 Previous Rx's Medication Instructions Recorded fluconazole 40 mg/mL oral 5 ml PO DAILY #150 mL 11/08/21 suspension amoxicillin 875 mg tablet 875 mg PO BID #20 tabs 01/29/22 methylprednisolone 4 mg tablets in See Rx Instructions .Route 01/29/22 a dose pack (Medrol (Maikel)) .COMPLEX 6 days #21 tabs Allergies Allergy/AdvReac Type Severity Reaction Status Date / Time azithromycin [AZITHROMYCIN] Allergy Mild I-HIVES Verified 11/23/21 14:24 Worker's Comp Is this a Worker's Comp case
== END 2022-02-06 18:51 | disposition home or self-care (01) ==
PROVIDERS: Emergency Provider Nurse Practitioner; PCP Nurse Practitioner Family
DX: Z03.89 Encounter for observation for other suspected diseases and conditions ruled out (principal); M62.838 Other muscle spasm; F41.9 Anxiety disorder, unspecified; Z20.822 Contact with and (suspected) exposure to COVID-19; Z79.51 Long term (current) use of inhaled steroids; Z79.52 Long term (current) use of systemic steroids; Z79.899 Other long term (current) drug therapy; Z88.0 Allergy status to penicillin; Z88.1 Allergy status to other antibiotic agents; Z88.3 Allergy status to other anti-infective agents
CPT/HCPCS: 99213; C9803; G0463; U0003; U0005

== ENCOUNTER → 2022-03-20 12:23 | Outpatient (CLI) | payer BC, SELFPAY ==
[2022-03-20 13:22] LABS: Basophils # 0.1 K/mm3 (0-0.2); Basophils % 1.4 % (0.1-2.0); Eosinophils # 0.2 K/mm3 (0.0-0.4); Eosinophils % 4.7 % (0.1-12.0); Hematocrit 39.9 % (37.0-47.0); Hemoglobin 13.3 g/dL (12.2-16.2); Lymphocytes # 2.5 K/mm3 (0.7-4.5); Lymphocytes % 53.7 % (10-50); Mean Corpuscular HGB Conc 33.5 g/dL (31.8-35.4); Mean Corpuscular Hemoglobin 31.3 pg (27.0-31.2); Mean Corpuscular Volume 93.7 fl (81-99); Mean Platelet Volume 8.3 fl (7.4-10.4); Monocytes # 0.3 K/mm3 (0.1-1.0); Monocytes % 5.8 % (1.7-9.3); Neutrophils # 1.6 K/mm3 (1.8-7.8); Neutrophils % 34.5 % (37.0-80.0); Platelet Count 236 K/mm3 (142-424); Red Blood Count 4.26 M/mm3 (4.20-5.40); Red Cell Distribution Width 13.1 % (11.5-17.5); White Blood Count 4.7 K/mm3 (4.8-10.8)
[2022-03-20 13:44] LABS: MANUAL DIFFERENTIAL MANUAL DIFFERENTIAL (MANUAL DIFF)
[2022-03-20 13:53] LABS: Alanine Aminotransferase 37 U/L (12-78); Albumin Level 4.4 g/dl (3.5-5.0); Albumin/Globulin Ratio 1.8 (1.1-1.8); Alkaline Phosphatase 105 U/L (38-126); Anion Gap 15.4 mEq/L (5-15); Aspartate Amino Transferase 24 U/L (14-36); Bilirubin,Total 0.3 mg/dl (0.2-1.3); Blood Urea Nitrogen 14 mg/dl (7-17); Calcium 9.2 mg/dl (8.4-10.2); Carbon Dioxide 28 mmol/L (22.0-30.0); Chloride 100 mmol/L (98-107); Estimated Glomerular Filt Rate 67 ml/min (>60); GFR (African American) 82 ML/MIN (>60); Globulin 2.5 g/dL (1.3-3.2); Glucose 107 mg/dl (74-100); Potassium 4.4 mmoL/L (3.5-5.1); Sodium 139 mmol/L (136-145); Total Protein,Serum 6.9 g/dl (6.3-8.2)
[2022-03-20 14:05] LABS: Troponin I < 0.01 ng/ml (0.00-0.034)
[2022-03-20 14:23] LABS: Thyroid Stimulating Hormone 0.39 uIU/mL (0.465-4.68)
[2022-03-20 15:48] LABS: Eosinophils % 1 % (0-3); Lymphocytes % 53 % (10-50); Monocytes % 3 % (2-9); Neutrophils % 41 % (42-76); Platelet Estimate Normal; RBC Morphology Normal; Total Cells Counted 100
== END ==
PROVIDERS: PCP Family Medicine; Visit Provider Nurse Practitioner Family
DX: R42 Dizziness and giddiness (principal); R00.0 Tachycardia, unspecified
CPT/HCPCS: 36415; 80053; 84443; 84484; 85007; 85025

== ENCOUNTER 2023-05-08 16:56 | Outpatient (CLI) | payer BC, SELFPAY ==
[2023-05-08 17:00] LABS: Adenovirus,PCR Not Detected (NotDetected); Coronavirus 19, PCR Not Detected (NotDetected); Coronavirus 229E Not Detected (NotDetected); Coronavirus NL63 Not Detected (NotDetected); Coronavirus OC43 Not Detected (NotDetected); Coronovirus HKU1,PCR Not Detected (NotDetected); Human Metapneumovirus Not Detected (NotDetected); Influenza A, PCR Not Detected (NotDetected); Influenza AH1, 2009 Not Detected (NotDetected); Influenza AH1, PCR Not Detected (NotDetected); Influenza AH3,PCR Not Detected (NotDetected); Influenza B, PCR Not Detected (NotDetected); Parainfluenza 1, PCR Not Detected (NotDetected); Parainfluenza 2, PCR Not Detected (NotDetected); Parainfluenza 3, PCR Not Detected (NotDetected); Parainfluenza 4, PCR Not Detected (NotDetected); Respiratory Syncytial Virus Not Detected (NotDetected); Rhinovirus/Enterovirus Not Detected (NotDetected)
== END 2023-05-08 23:59 ==
LOC: LAB.DROPOF 16:58
PROVIDERS: PCP Nurse Practitioner Family; Visit Provider Nurse Practitioner Family
DX: J06.9 Acute upper respiratory infection, unspecified (principal); R05.9 Cough, unspecified; R51.9 Headache, unspecified; J32.9 Chronic sinusitis, unspecified; R11.0 Nausea
CPT/HCPCS: 87581; 87632; 87635; 87798

== ENCOUNTER 2023-06-08 12:36 | Outpatient (CLI) | payer BC, SELFPAY ==
[2023-06-08 12:36] LABS: Influenza A, PCR Not Detected (NotDetected); Influenza B, PCR Not Detected (NotDetected)
[2023-06-08 13:44] LABS: Coronavirus 19, PCR Detected (NotDetected)
== END 2023-06-08 23:59 ==
LOC: LAB 12:37
PROVIDERS: PCP Nurse Practitioner Family; Visit Provider Nurse Practitioner Family
DX: R05.1 Acute cough (principal); R50.9 Fever, unspecified; U07.1 COVID-19
CPT/HCPCS: 87636

== ENCOUNTER 2023-10-01 12:23 | Outpatient (CLI) | payer BC, SELFPAY ==
--- NOTE | 2023-10-01 12:30 | XR_ITS ---
FINAL REPORT CLINICAL HISTORY: lumbago, right sided COMPARISON: 10/20/2019 FINDINGS: AP and lateral views of the lumbar spine were obtained. There is no acute fracture. There is a mild left curvature of the lumbar spine, slightly more prominent than noted on the prior exam. Vertebral body height is preserved. Mild degenerative changes present. There is mild anterolisthesis of L4 on L5, slightly more prominent than noted on the prior exam. No acute paraspinal abnormality. IMPRESSION: Mild degenerative change as described, with the lumbar curvature and mild anterolisthesis of L4 on L5 slightly more prominent than noted on the prior exam. Reviewed, Interpreted and Dictated by Jose Farris III, MD Transcribed by Nannette Michael Authenticated and [facility]
== END 2023-10-01 23:59 | disposition home or self-care (01) ==
LOC: RAD 12:24
PROVIDERS: PCP Nurse Practitioner Family; Visit Provider Nurse Practitioner Family
DX: M54.41 Lumbago with sciatica, right side (principal)
CPT/HCPCS: 72100

== ENCOUNTER 2023-11-09 13:52 | Outpatient (CLI) | payer BC, SELFPAY ==
--- NOTE | 2023-11-09 13:53 | MR_ITS ---
FINAL REPORT CLINICAL HISTORY: Right sided lower back With right sciatica. No injury or trauma. COMPARISON: None FINDINGS: Multiplanar MR imaging of the lumbar spine was performed without contrast. On the sagittal T2-weighted images, disc degeneration is seen at several levels. The vertebral alignment is normal. There is no evidence of fracture. A hemangioma is present in the L3 vertebral body. The conus has an unremarkable appearance. No significant canal stenosis is identified. L1-2: No significant central canal stenosis or neuroforaminal narrowing. L2-3: No significant central canal stenosis or neuroforaminal narrowing. L3-4: An annular bulge is present. No significant central canal stenosis or neuroforaminal narrowing. L4-5: An annular bulge is present with facet arthropathy and mild bilateral neural foraminal narrowing. L5-S1: An annular bulge is present with facet arthropathy. No significant central canal stenosis or neuroforaminal narrowing. IMPRESSION: Mild degenerative change of the lumbar spine, without canal stenosis only mild bilateral neural foraminal narrowing at the L4-5 level. Reviewed, Interpreted and Dictated by Jose Farris III, MD Transcribed by Nannette Michael Authenticated and [facility]
== END 2023-11-09 23:59 | disposition home or self-care (01) ==
LOC: RAD 13:53
PROVIDERS: PCP Nurse Practitioner Family; Visit Provider Nurse Practitioner Family
DX: M54.41 Lumbago with sciatica, right side (principal)
CPT/HCPCS: 72148

== ENCOUNTER 2023-12-17 10:43 | Outpatient (CLI) | payer BC, SELFPAY ==
--- NOTE | 2023-12-17 10:49 | XR_ITS ---
FINAL REPORT CLINICAL HISTORY: cervical neck pain COMPARISON: None FINDINGS: CERVICAL SPINE AP, lateral, oblique, and odontoid views of the cervical spine were obtained. There is no prior exam for comparison. There is no acute fracture or malalignment. There are mild anterior osteophyte formation at the C6-7 level. Vertebral body height is preserved. The precervical soft tissues are normal. There is mild reversal of the normal lordosis of the cervical spine. IMPRESSION: Mild degenerative change and mild reversal of the normal lordosis of the cervical spine suggesting muscular spasm or positioning. Reviewed, Interpreted and Dictated by Donovan Polk MD Transcribed by Nannette Michael Authenticated and [facility]
== END 2023-12-17 23:59 | disposition home or self-care (01) ==
LOC: RAD 10:44
PROVIDERS: PCP Nurse Practitioner Family; Visit Provider Nurse Practitioner Family
DX: M54.2 Cervicalgia (principal); M54.12 Radiculopathy, cervical region
CPT/HCPCS: 72050

== ENCOUNTER 2024-01-07 14:42 | Outpatient (CLI) | payer BC, SELFPAY ==
--- NOTE | 2024-01-07 14:42 | MR_ITS ---
FINAL REPORT CLINICAL HISTORY: cevical neck pain with radiculopathy to LUE COMPARISON: None FINDINGS: Multiplanar MR imaging of the cervical spine was performed without contrast. On the sagittal T2-weighted images, disc degeneration is seen throughout. There is mild kyphosis centered at C5-6. There is no evidence of fracture. The vertebral alignment is normal. The cervical spinal cord has an unremarkable appearance without evidence of mass, edema or syrinx. No significant canal stenosis is identified. The cervicomedullary junction is normal. C2-3: There is no significant canal stenosis or neural foraminal narrowing. C3-4: There is no significant canal stenosis or neural foraminal narrowing. C4-5: There is no significant canal stenosis or neural foraminal narrowing. C5-6: Annular disc bulge. Uncovertebral osteophytes. Mild bilateral neural foraminal narrowing. C6-7: Small disc osteophyte complex. Mild left neural foraminal narrowing. C7-T1: Annular disc bulge. There is no significant canal stenosis or neural foraminal narrowing. IMPRESSION: Multilevel degenerative disc disease. Reviewed, Interpreted and Dictated by Jose Farris III, MD Transcribed by Edith Gibson Authenticated and [facility]
== END 2024-01-07 23:59 | disposition home or self-care (01) ==
LOC: RAD 14:42
PROVIDERS: PCP Nurse Practitioner Family; Visit Provider Nurse Practitioner Family
DX: M54.2 Cervicalgia (principal); M54.12 Radiculopathy, cervical region
CPT/HCPCS: 72141

== ENCOUNTER 2024-01-21 13:03 | Outpatient (POV) | payer BC, SELFPAY ==
[2024-01-21 13:14] VITALS: BP 127/77; PULSE 104; RESP 16; O2SAT 97; BMI 29.9
--- NOTE | 2024-01-21 13:24 | EXP.PAIN.OV ---
HPI Data of Consult Patient: new to practice Consult date: 01/21/24 Requesting Physician: Shanta Sawant APRN Primary Care Provider: Shanda Sands APRN Consult Narrative Reason for consult: Neck pain, headache, bilateral shoulder pain, low back pain, hip pain History of present illness: Ms. Benoit is a 48 year old female who presents today as a new patient. She is a referral from Eden Sands's office. Today she rates her pain a 8 out of 10. Patient states she has pain throughout her neck with radiating symptoms into her bilateral shoulders as well as increased headache and low back and hip pain. Patient states this is all been going on since at least August. Patient states that she has had stuff in the past however it significantly worsened unrelated to any specific trauma or injury. Patient felt as though her back had moved . Patient states that she started experiencing constant headaches that started at the base of her neck and would come up into the back of her head towards her forehead. Patient states that she does have aching, throbbing sensations with pinprick sensations into her arms and hands. She does state the pain often varies depending on her activity or certain positioning. Patient feels like she has constant knots all across her shoulders. Patient states that she has tried [id number] Tylenol and ibuprofen along with heat and ice and topicals with minimal relief. Patient has also tried hot tub therapy as well as recent physical therapy with no additional change. Patient denies any prior back surgery or injection history. Patient is interested in any improvement we may be able to provide. She does state that overall the neck and headache symptoms are worse than the low back symptoms.Patient is currently managed with pregabalin 75 mg twice a day from her primary care. Patient denies any side effects from this medication. Her Jason has been reviewed and is appropriate. CC: Shanta Sawant APRN [facility] Disclaimer: The information contained in this section may have been updated after the patient was seen, as this information can be updated by other users. Medical History (Updated 01/21/24 @ 13:25 by Shanta Sawant APRN) Arthritis History of recurrent ear infection Anxiety Surgical History History of hysterectomy History of cholecystectomy Social History Smoking Status: Never smoker alcohol intake: never substance use type: denies use current occupational status: disabled Travel in the last 8 weeks: None household members: spouse housing: house caffeine: Yes Review of Systems Review of Systems Review of systems:: pertinent systems reviewed and negative unless documented below Review of systems (narrative): Review of Systems: General: No recent weight changes, no fever, no sleep disturbances Respiratory: No cough, no shortness of air, no recurring pulmonary infections Cardiovascular/peripheral vascular: No chest pain, no palpitations, no edema, no shortness of breath Gastrointestinal: No new onset incontinence, normal bowel movements reported Genitourinary: No new onset incontinence Musculoskeletal: Neck, bilateral shoulder pain, arm/hand pain, headaches, low back pain, bilateral hip pain Psychiatric: [Normal mood/affect] Neurological: [Denies weakness in extremities], [denies balance issues] Meds Home Medications and Allergies Home Medications ?Medication ?Instructions ?Recorded ?Confirmed ?Type primidone 50 mg tablet 100 mg PO QID seizures 05/10/17 12/17/23 History azelastine 137 mcg (0.1 %) nasal 2 spray intranasal BID 05/08/23 12/17/23 History spray albuterol sulfate 90 mcg/actuation 2 puff inhalation Q4-6H PRN 06/08/23 12/17/23 Rx aerosol inhaler shortness of breath or wheezing #8.5 grams celecoxib 200 mg capsule (Celebrex) 200 mg PO DAILY #30 caps 11/20/23 12/17/23 Rx fexofenadine 180 mg tablet 180 mg PO DAILY 11/20/23 12/17/23 History (Tri Allergy) methocarbamol 750 mg tablet 750 mg PO TID PRN muscle spasm #90 11/20/23 12/17/23 Rx tabs albuterol 90 mcg-budesonide 80 2 inh inhalation 6XD PRN shortness 12/17/23 12/17/23 Rx mcg/actuation HFA aerosol inhaler of breath or wheezing #10.7 grams (Airsupra) duloxetine 60 mg capsule,delayed 60 mg PO BID Depression 30 days 12/17/23 12/17/23 Rx release #60 caps pregabalin 75 mg capsule 75 mg PO BID 30 days #60 caps 01/14/24 Rx New Prescriptions to Start Prescriptions: Allergies Allergy/AdvReac Type Severity Reaction Status Date / Time azithromycin [AZITHROMYCIN] Allergy Mild I-HIVES Verified 12/17/23 09:22 Objective Narrative: Physical Exam: General: Alert and oriented x3, no acute distress, pleasant and cooperative Lungs: Respirations even and unlabored, symmetrical chest expansion Eyes: PERRL Musculoskeletal: Flexion and extension of cervical [spine] somewhat guarded secondary to pain, [antalgic gait noted] positive Spurling's test, point tenderness along right SI with positive right Lucio's, Yanira's, Gaenslen's, compression and distraction exam. Neurological: Speech clear, no gross sensory deficit Additional findings Additional findings: FINDINGS: Multiplanar MR imaging of the cervical spine was performed without contrast. On the sagittal T2-weighted images, disc degeneration is seen throughout. There is mild kyphosis centered at C5-6. There is no evidence of fracture. The vertebral alignment is normal. The cervical spinal cord has an unremarkable appearance without evidence of mass, edema or syrinx. No significant canal stenosis is identified. The cervicomedullary junction is normal. C2-3: There is no significant canal stenosis or neural foraminal narrowing. C3-4: There is no significant canal stenosis or neural foraminal narrowing. C4-5: There is no significant canal stenosis or neural foraminal narrowing. C5-6: Annular disc bulge. Uncovertebral osteophytes. Mild bilateral neural foraminal narrowing. C6-7: Small disc osteophyte complex. Mild left neural foraminal narrowing. C7-T1: Annular disc bulge. There is no significant canal stenosis or neural foraminal narrowing. IMPRESSION: Multilevel degenerative disc disease. Reviewed, Interpreted and Dictated by Jose Farris III, MD Transcribed by Edith Gibson Authenticated and . [facility] FINDINGS: Multiplanar MR imaging of the lumbar spine was performed without contrast. On the sagittal T2-weighted images, disc degeneration is seen at several levels. The vertebral alignment is normal. There is no evidence of fracture. A hemangioma is present in the L3 vertebral body. The conus has an unremarkable appearance. No significant canal stenosis is identified. L1-2: No significant central canal stenosis or neuroforaminal narrowing. L2-3: No significant central canal stenosis or neuroforaminal narrowing. L3-4: An annular bulge is present. No significant central canal stenosis or neuroforaminal narrowing. L4-5: An annular bulge is present with facet arthropathy and mild bilateral neural foraminal narrowing. L5-S1: An annular bulge is present with facet arthropathy. No significant central canal stenosis or neuroforaminal narrowing. IMPRESSION: Mild degenerative change of the lumbar spine, without canal stenosis only mild bilateral neural foraminal narrowing at the L4-5 level. Reviewed, Interpreted and Dictated by Jose Farris III, MD Transcribed by Nannette Michael Authenticated and . [facility] Assessment and Plan *Assessment and plan (1) Degenerative disc disease, cervical: Status: Acute Category: Medical Code(s): M50.30 - Other cervical disc degeneration, unspecified cervical region (2) Radiculopathy, cervical: Status: Acute Category: Medical Code(s): M54.12 - Radiculopathy, cervical region (3) Degenerative disc disease, lumbar: Status: Acute Category: Medical Code(s): M51.36 - Other intervertebral disc degeneration, lumbar region Plan Patient is experiencing significant pain in multiple areas however did have limited range of motion of her cervical spine with a positive Spurling's test. Patient did also have limited range of motion and point tenderness along her right SI with a positive right Lucio's, Yanira's, Gaenslen's, compression and distraction exam. I did discuss with the patient in future I do believe she would benefit from a cervical epidural as well as a right SI injection. We did discuss at length that the cervical symptoms were causing worsening pain and decreased function. I did review over the risk and benefits of the cervical epidural and she would like to proceed forward with this plan of care. Patient has tried and failed conservative therapy including physical therapy and continued at home stretching exercise for longer than 12 weeks. I will order the patient a compounded cream. Patient will be scheduled for a SARAH C5-C6 under fluoroscopy. Patient has been instructed to contact the clinic with any concerns before the next appointment. Dr. Wharton has reviewed this note and agrees with this plan of care. This note was dictated using voice recognition software and make contain errors or omissions. All injections are used with Lidocaine or Bupivacaine and Depo Medrol.
== END 2024-01-21 23:59 | disposition home or self-care (01) ==
LOC: SC.PAIN 13:04
PROVIDERS: PCP Nurse Practitioner Family; Visit Provider Nurse Practitioner Family
DX: M50.10 Cervical disc disorder with radiculopathy, unspecified cervical region (principal); M51.36 Other intervertebral disc degeneration, lumbar region
CPT/HCPCS: 99202; G0463

== ENCOUNTER 2024-02-12 10:35 | Day surgery (SDC) | payer BC, SELFPAY ==
[2024-02-12 11:00] VITALS: BP 143/97; PULSE 78; PULSE 79; RESP 18; O2SAT 94
--- NOTE | 2024-02-12 11:08 | P.PCN_ITS ---
Procedure Date: 02/12/24 Time: 11:00 Anesthesiologist:: Leonel Escobedo CRNA Complications:: None Pre-procedure Diagnosis:: Degenerative disc cervical spine multilevels. Cervical radiculopathy. Post-procedure Diagnosis:: Same. Indications for Procedure:: Patient is a pleasant 48-year-old female comes our clinic today for cervical epidural steroid injection. Patient reports posterior cervical neck pain is constant, dull, aching. Patient also reports bilateral arm radicular symptoms to the hands. She rates her pain 7/10. Procedure Details:: Procedure:Cervical epidural steroid injection Informed consent was obtained and the risks and benefits of the procedure were explained to the patient. The patient was taken to the procedure room and noninvasive monitors placed, including noninvasive blood pressure cuff and pulse oximeter. The neck was prepped using Chloraprep as a cleansing solution. The C6- C7 interspace was viewed using fluroscopy. The skin and subcutaneous tissues were anesthetized using lidocaine 1.5% and a 25-gauge needle. After this an 18- gauge Touhy epidural needle was placed into the C6-C7 interspace under fluroscopy guidance and advanced using loss of resistance to air until the epidural space was encountered. After confirmation of needle placement in the epidural space using contrast dye, a solution containing normal saline, 2 mL and Depo-Medrol 80 mg was incrementally injected into the cervical epidural space.~ The patient tolerated the procedure well with no complications. The patient was observed in the Pain Clinic and then discharged home neurologically intact. Plan and Disposition:: Patient was discharged without incident.
[2024-02-12 11:10] VITALS: BP 122/73; PULSE 90; RESP 16; TEMP 36.7; O2SAT 96; BMI 29.9
[2024-02-12] MEDS: IOPAMIDOL-200 (41%);10ML VIAL 10 ML IV (11:11)
[2024-02-12] MEDS: methylPREDNISolone ACETATE 80MG/ML VIAL 80 MG (11:11)
[2024-02-12 11:25] VITALS: BP 109/67; PULSE 88; RESP 16; O2SAT 96
== END 2024-02-12 11:25 | disposition home or self-care (01) ==
PROVIDERS: PCP Nurse Practitioner Family; Visit Provider Nurse Anesthetist, Certified Registered
DX: M50.30 Other cervical disc degeneration, unspecified cervical region (principal); M54.12 Radiculopathy, cervical region
CPT/HCPCS: 62321; J1010; Q9966

== ENCOUNTER 2024-02-28 09:38 | Outpatient (POV) | payer BC, SELFPAY ==
[2024-02-28 10:27] VITALS: BP 114/82; PULSE 91; RESP 16; O2SAT 95; BMI 29.9
--- NOTE | 2024-02-28 10:59 | A.OFFVIS_ITS ---
[facility] Disclaimer: The information contained in this section may have been updated after the patient was seen, as this information can be updated by other users. Medical History (Updated 02/28/24 @ 11:02 by Shanta Sawant APRN) Arthritis History of recurrent ear infection Anxiety Surgical History History of hysterectomy History of cholecystectomy Social History Smoking Status: Never smoker alcohol intake: never substance use type: denies use current occupational status: other Travel in the last 8 weeks: None household members: spouse housing: house caffeine: Yes PM Subjective & Objective Subjective Subjective:: Patient is a pleasant 48-year-old female who presents today for follow-up of her cervical epidural C6-C7 on 02/12/2024. Today she rates her pain a 4 out of 10. Patient states that she had 100% relief following this injection and did feel like it really provided significant improvement for at least 1 week. She does state that it is helping still some nail however she is stating most of her pain today is all along her low back and right hip. Patient states that she has had issues with this for the last 2 years where her right leg will occasionally have numbness in the upper thigh and just give out. Patient states that this generally would come and go and that it was not as severe as it is now. Patient states that it does interfere with her ability perform activities of daily living such as cooking and cleaning. She does state that the pain will get wors e as the day goes on up to at least a 5 or 6 out of 10. Patient does state the pain is worse with prolonged sitting or standing. Patient would like us to see about doing something for this pain. Patient denies any new falls or injuries. Patient has tried and failed conservative therapy including oral medications, heat and ice and topicals along with continued at home stretching exercise for longer than 12 weeks. Her Jason has been reviewed and is appropriate. Patient is prescribed compounded cream from our office and pregabalin from an outside provider. Review of Systems: General: No recent weight changes, no fever, no sleep disturbances Respiratory: No cough, no shortness of air, no recurring pulmonary infections Cardiovascular/peripheral vascular: No chest pain, no palpitations, no edema, no shortness of breath Gastrointestinal: No new onset incontinence, normal bowel movements reported Genitourinary: No new onset incontinence Musculoskeletal: Low back pain, right hip pain, right upper thigh pain Psychiatric: [Normal mood/affect] Neurological: [Denies weakness in extremities], [denies balance issues] Pain at rest (0-10 scale): 5 Objective Objective:: Physical Exam: General: Alert and oriented x3, no acute distress, pleasant and cooperative Lungs: Respirations even and unlabored, symmetrical chest expansion Eyes: PERRL Musculoskeletal: Flexion and extension of lumbar [spine] somewhat guarded secondary to pain, [antalgic gait noted] point tenderness along right SI with positive right Lucio's, Yanira's, Gaenslen's, compression and distraction exam Neurological: Speech clear, no gross sensory deficit Has patient had previous pain injection?: Yes Percent improvement in pain since last injection: 100% Conservative treatment options previously tried: Home exercise plan Length of treatment: Longer than 12 weeks Meds Home Medications and Allergies Home Medications ?Medication ?Instructions ?Recorded ?Confirmed ?Type primidone 50 mg tablet 100 mg PO QID seizures 05/10/17 02/28/24 History azelastine 137 mcg (0.1 %) nasal 2 spray intranasal BID 05/08/23 02/28/24 History spray albuterol sulfate 90 mcg/actuation 2 puff inhalation Q4-6H PRN 06/08/23 02/28/24 Rx aerosol inhaler shortness of breath or wheezing #8.5 grams fexofenadine 180 mg tablet 180 mg PO DAILY 11/20/23 02/28/24 History (Tri Allergy) methocarbamol 750 mg tablet 750 mg PO TID PRN muscle spasm #90 11/20/23 02/28/24 Rx tabs albuterol 90 mcg-budesonide 80 2 inh inhalation 6XD PRN shortness 12/17/23 02/28/24 Rx mcg/actuation HFA aerosol inhaler of breath or wheezing #10.7 grams (Airsupra) celecoxib 200 mg capsule See Rx Instructions .Route 02/08/24 02/28/24 Rx .COMPLEX #30 caps duloxetine 60 mg capsule,delayed See Rx Instructions .Route 02/08/24 02/28/24 Rx release .COMPLEX #60 ea pregabalin 75 mg capsule 75 mg PO BID 30 days #60 caps 02/20/24 02/28/24 Rx New Prescriptions to Start Prescriptions: Allergies Allergy/AdvReac Type Severity Reaction Status Date / Time azithromycin [AZITHROMYCIN] Allergy Mild I-HIVES Verified 12/17/23 09:22 Assessment and Plan *Assessment and plan (1) Sacroiliitis: Status: Acute Category: Medical Code(s): M46.1 - Sacroiliitis, not elsewhere classified Plan Patient is experiencing worsening pain in her low back and right hip with numbness that goes into her upper thigh. Patient did have point tenderness along her right SI with positive right Lucio's, Yanira's, Gaenslen's, compression and distraction exam. I did discuss with the patient that I do believe she would benefit from a right SI injection. Risk and benefits were discussed with the patient and she would like to proceed forward with this plan of care. Patient has tried and failed conservative therapy for longer than 12 weeks. Patient does state that she has been experiencing this pain for longer t verdugo 2 years. Patient will be scheduled for a right SI injection under fluoroscopy. Patient has been instructed to contact the clinic with any concerns before the next appointment. Dr. Wharton has reviewed this note and agrees with this plan of care. This note was dictated using voice recognition software and make contain errors or omissions. All injections are used with Lidocaine or Bupivacaine and Depo Medrol.
== END 2024-02-28 23:59 | disposition home or self-care (01) ==
LOC: SC.PAIN 09:39
PROVIDERS: PCP Nurse Practitioner Family; Visit Provider Nurse Practitioner Family
DX: M46.1 Sacroiliitis, not elsewhere classified (principal); Z73.89 Other problems related to life management difficulty
CPT/HCPCS: 99212; G0463

== ENCOUNTER 2024-03-25 09:50 | Day surgery (SDC) | payer BC, SELFPAY ==
[2024-03-25 10:03] VITALS: BP 131/77; PULSE 101; RESP 16; TEMP 36.9; O2SAT 95; BMI 29.9
[2024-03-25] MEDS: LIDOCAINE 1% 5ML PF VIAL 5 ML (10:10)
[2024-03-25] MEDS: BUPIVACAINE 0.25% 10ML INJ 25 MG IJ (10:11)
[2024-03-25 10:12] VITALS: BP 119/80; PULSE 88; RESP 18; O2SAT 97
[2024-03-25 10:41] VITALS: BP 107/74; PULSE 93; RESP 16; O2SAT 96
--- NOTE | 2024-03-25 10:51 | P.PCN_ITS ---
Procedure Date: 03/25/24 Time: 10:00 Anesthesiologist:: Leonel Escobedo CRNA Complications:: None Pre-procedure Diagnosis:: Right sacroiliitis Post-procedure Diagnosis:: Same Indications for Procedure:: Patient very pleasant 40-year-old female comes to our clinic today for right sacroiliac joint injection of local anesthetic. Due to insurance constraints we will simply inject the right sacroiliac joint with 2 cc of 1% lidocaine. Patient describes right low lumbar back pain off the midline. She reports having difficulty transitioning from sitting to standing. Difficulty with ambulation. Difficulty with sitting. She rates her pain 8/10. Procedure Details:: Details of the procedure explained to the patient. The patient taken procedure room placed in the prone position on the fluoroscopy table. The over the right buttock was cleaned using chlorhexidine as a cleansing solution. Using a 22- gauge 3 and half inch spinal needle the right sacroiliac joint was accessed in the lower one third. After negative aspiration 2 cc of 1% lidocaine was injected. Patient tolerated procedure without difficulty. There are no complications. Plan and Disposition:: Patient was reevaluated 10 minutes post procedure. She reports 90% improvement terms of her right buttock pain. She was discharged without incident.
== END 2024-03-25 10:41 | disposition home or self-care (01) ==
LOC: SC.PAINP 09:50
PROVIDERS: PCP Nurse Practitioner Family; Visit Provider Nurse Anesthetist, Certified Registered
DX: M46.1 Sacroiliitis, not elsewhere classified (principal)
CPT/HCPCS: 27096; G0260

== ENCOUNTER 2024-04-03 13:32 | Outpatient (CLI) | payer BC, SELFPAY ==
[2024-04-03 17:00] LABS: Adenovirus,PCR Not Detected (NotDetected); Bordetella Pertussis Not Detected (NotDetected); Chlamydophila Pneumoniae, PCR Not Detected (NotDetected); Coronavirus 19, PCR Not Detected (NotDetected); Coronavirus 229E Not Detected (NotDetected); Coronavirus NL63 Not Detected (NotDetected); Coronavirus OC43 Not Detected (NotDetected); Coronovirus HKU1,PCR Not Detected (NotDetected); Human Metapneumovirus Not Detected (NotDetected); Influenza A, PCR Not Detected (NotDetected); Influenza AH1, 2009 Not Detected (NotDetected); Influenza AH1, PCR Not Detected (NotDetected); Influenza AH3,PCR Not Detected (NotDetected); Influenza B, PCR Not Detected (NotDetected); Mycoplasma Pneumoniae, PCR Not Detected (NotDetected); Parainfluenza 1, PCR Not Detected (NotDetected); Parainfluenza 2, PCR Not Detected (NotDetected); Parainfluenza 3, PCR Not Detected (NotDetected); Parainfluenza 4, PCR Not Detected (NotDetected); Respiratory Syncytial Virus Not Detected (NotDetected); Rhinovirus/Enterovirus Not Detected (NotDetected)
== END 2024-04-03 23:59 | disposition home or self-care (01) ==
LOC: LAB.DROPOF 04-04 08:15
PROVIDERS: PCP Nurse Practitioner Family; Visit Provider Nurse Practitioner Family
DX: J02.9 Acute pharyngitis, unspecified (principal); R49.0 Dysphonia; R09.81 Nasal congestion; H93.8X9 Other specified disorders of ear, unspecified ear; F17.210 Nicotine dependence, cigarettes, uncomplicated
CPT/HCPCS: 87070; 87633

== ENCOUNTER 2024-04-11 14:24 | Outpatient (POV) | payer BC, SELFPAY ==
--- NOTE | 2024-04-11 15:03 | EXP.PAIN.SOA ---
[facility] Disclaimer: The information contained in this section may have been updated after the patient was seen, as this information can be updated by other users. Medical History (Updated 04/03/24 @ 17:21 by Kateryna Vang APRN) Exposure to COVID-19 virus Otitis media Weakness Other dysphagia Laceration of left upper arm Flu-like symptoms Acute maxillary sinusitis Right otitis media Fever Acute cough Acute bronchitis Arthritis History of recurrent ear infection Anxiety Surgical History History of hysterectomy History of cholecystectomy Social History Smoking Status: Never smoker alcohol intake: never substance use type: denies use current occupational status: other Travel in the last 8 weeks: None household members: spouse housing: house caffeine: Yes PM Subjective & Objective Subjective Subjective:: Patient is a pleasant 48-year-old female who presents today for follow-up of her right SI injection on 03/25/2024. Today she rates her pain a 1 out of 10. Patient states that she had 100% relief following this injection and feels like it is still helping. Patient does state that her mom actually fell and fractured her pelvis so she really did put the injection to a test by sitting in the hospital for 12 hours straight and a prolonged seated position. She states she has also been sleeping on a couch and that is really still helped and that she is not having nearly the pain she was experiencing. Patient does state that she ended up crashing last night and stayed in 1 position all night which is very unlike her so she did have a little bit of pain today in that area however it is still much more manageable. Patient is prescribed compounded cream from our office and pregabalin from an outside provider. Her Jason has been reviewed and is appropriate. Review of Systems: General: No recent weight changes, no fever, no sleep disturbances Respiratory: No cough, no shortness of air, no recurring pulmonary infections Cardiovascular/peripheral vascular: No chest pain, no palpitations, no edema, no shortness of breath Gastrointestinal: No new onset incontinence, normal bowel movements reported Genitourinary: No new onset incontinence Musculoskeletal: Low back pain Psychiatric: [Normal mood/affect] Neurological: [Denies weakness in extremities], [denies balance issues] Pain at rest (0-10 scale): 1 Objective Objective:: Physical Exam: General: Alert and oriented x3, no acute distress, pleasant and cooperative Lungs: Respirations even and unlabored, symmetrical chest expansion Eyes: PERRL Musculoskeletal: Flexion and extension of lumbar [spine] somewhat guarded secondary to pain, [antalgic gait noted] Neurological: Speech clear, no gross sensory deficit Has patient had previous pain injection?: Yes Percent improvement in pain since last injection: 100% Conservative treatment options previously tried: Home exercise plan Length of treatment: Longer than 12 weeks Meds Home Medications and Allergies Home Medications ?Medication ?Instructions ?Recorded ?Confirmed ?Type primidone 50 mg tablet 100 mg PO QID seizures 05/10/17 04/03/24 History azelastine 137 mcg (0.1 %) nasal 2 spray intranasal BID 05/08/23 04/03/24 History spray albuterol sulfate 90 mcg/actuation 2 puff inhalation Q4-6H PRN 06/08/23 04/03/24 Rx aerosol inhaler shortness of breath or wheezing #8.5 grams fexofenadine 180 mg tablet 180 mg PO DAILY 11/20/23 03/25/24 History (Tri Allergy) albuterol 90 mcg-budesonide 80 2 inh inhalation 6XD PRN shortness 12/17/23 04/03/24 Rx mcg/actuation HFA aerosol inhaler of breath or wheezing #10.7 grams (Airsupra) pregabalin 75 mg capsule 75 mg PO BID 30 days #60 caps 02/20/24 04/03/24 Rx celecoxib 200 mg capsule See Rx Instructions .Route 03/21/24 04/03/24 Rx .COMPLEX #30 caps methocarbamol 750 mg tablet See Rx Instructions .Route 03/24/24 04/03/24 Rx .COMPLEX #90 tabs esomeprazole magnesium 20 mg 20 mg PO DAILY 04/03/24 04/03/24 History capsule,delayed release promethazine-DM 6.25 mg-15 mg/5 mL 5 ml PO Q4-6H PRN cough #118 mL 04/03/24 04/03/24 Rx oral syrup duloxetine 60 mg capsule,delayed See Rx Instructions .Route 04/07/24 Rx release .COMPLEX #60 ea New Prescriptions to Start Prescriptions: Allergies Allergy/AdvReac Type Severity Reaction Status Date / Time azithromycin (AZITHROMYCIN) Allergy Mild I-HIVES Verified 04/03/24 13:12 Assessment and Plan *Assessment and plan (1) Degenerative disc disease, lumbar: Status: Acute Category: Medical Code(s): M51.369 - Other intervertebral disc degeneration, lumbar region without mention of lumbar back pain or lower extremity pain (2) Sacroiliitis: Status: Acute Category: Medical Code(s): M46.1 - Sacroiliitis, not elsewhere classified Plan Patient has had significant improvement and does not require any additional injection therapy at this time. Patient will return to clinic in 6 weeks for reevaluation of symptoms and plan of care. Patient has been instructed to contact the clinic with any concerns before the next appointment. Dr. Wharton has reviewed this note and agrees with this plan of care. This note was dictated using voice recognition software and make contain errors or omissions. All injections are used with Lidocaine, Bupivacaine and Depo Medrol. Occasionally urine drug screen is needed to verify patient's compliance with our office pain contract. This is ordered based off specific treatments related to chronic pain with the potential to abuse certain medications.
[2024-04-11 15:09] VITALS: BP 133/73; PULSE 104; RESP 16; O2SAT 97; BMI 29.9
== END 2024-04-11 23:59 | disposition home or self-care (01) ==
LOC: SC.PAIN 14:25
PROVIDERS: PCP Nurse Practitioner Family; Visit Provider Nurse Practitioner Family
DX: M51.369 Other intervertebral disc degeneration, lumbar region without mention of lumbar back pain or lower extremity pain (principal); M46.1 Sacroiliitis, not elsewhere classified
CPT/HCPCS: 99212; G0463

== ENCOUNTER 2024-05-01 17:10 | Emergency (ER) | payer BC, SELFPAY ==
[2024-05-01 17:32] VITALS: BP 131/60; PULSE 115; RESP 20; TEMP 36.8; O2SAT 95; BMI 30.7
--- NOTE | 2024-05-01 17:38 | EXP.UTC ---
Discharge Plan Disposition Patient Disposition: Home, Self-Care Condition: Good Prescriptions Prescriptions: New amoxicillin 875 mg tablet 875 mg PO Q12H Qty: 20 0RF benzonatate 100 mg capsule 100 mg PO TIDP PRN (Reason: Cough) Qty: 30 0RF methylprednisolone 4 mg Tablets,Dose Pack 4 mg PO DIRECTED 6 Days Qty: 21 0RF Rx Instructions: Take 1 pack as directed for 6 days No Action fexofenadine [Tri Allergy] 180 mg tablet 180 mg PO DAILY esomeprazole magnesium 20 mg capsule,delayed release(DR/EC) 20 mg PO DAILY azelastine 137 mcg (0.1 %) aerosol,spray 2 spray intranasal BID Rx Instructions: administer into each nostril celecoxib 200 mg capsule See Rx Instructions .ROUTE .COMPLEX Qty: 30 2RF Dose Instruction: Take 1 capsule by mouth once daily Rx Instructions: Take 1 capsule by mouth once daily methocarbamol 750 mg tablet See Rx Instructions .ROUTE .COMPLEX Qty: 90 0RF Dose Instruction: Take 1 tablet by mouth three times daily as needed for muscle spasm Rx Instructions: Take 1 tablet by mouth three times daily as needed for muscle spasm duloxetine 60 mg capsule,delayed release(DR/EC) See Rx Instructions .ROUTE .COMPLEX Qty: 60 0RF Dose Instruction: TAKE 1 CAPSULE BY MOUTH TWICE DAILY FOR DEPRESSION Rx Instructions: TAKE 1 CAPSULE BY MOUTH TWICE DAILY FOR DEPRESSION pregabalin 75 mg capsule 75 mg PO BID 30 Days Qty: 60 0RF primidone 50 mg tablet 100 mg PO QID 30 Days Qty: 240 0RF Referrals Follow up/Referrals: Shanda Sands APRN [Primary Care Provider] - See instructions Activity Restrictions/Add. Instructions Additional Instructions/Restrictions: Drink plenty of fluids. Take tylenol or ibuprofen for pain or fever. Take the medications as directed. Follow up with your regular doctor. GO TO THE ER FOR ANY WORSENING SYMPTOMS Clinical Impressions Clinical Impression: Otitis media, Pharyngitis, RSV exposure Instructions Patient Instructions: Sore Throat, DI for Pharyngitis/Tonsillopharyngitis -- Adult Print Language Print Language: British Discharge ED Provider: Marc Chow [facility] General Stated complaint: sore throat, ear pain, cough Mode of Arrival: Ambulatory Source of Information: Patient Time Seen by Provider: 05/01/24 17:38 Description of Symptoms (Recalled from Triage Doc. by RN): FLU S/S, LOSS OF VOICE, EAR PAIN HEENT Symptoms (Recalled from RN notes): Yes Resp Symptoms (Recalled from RN notes): Yes Skin Symptoms (Recalled from RN notes): No MS Symptoms (Recalled from RN notes): No Functional Status (Recalled from RN notes): WNL History of Present Illness Provider Complaint: She states that for the past 4 days she has had sore throat, ear pain, chest congestion and a cough. Related Data Home Medications ?Medication ?Instructions ?Recorded ?Confirmed azelastine 137 mcg (0.1 %) nasal 2 spray intranasal BID 05/08/23 05/01/24 spray fexofenadine 180 mg tablet 180 mg PO DAILY 11/20/23 05/01/24 (Tri Allergy) esomeprazole magnesium 20 mg 20 mg PO DAILY 04/03/24 05/01/24 capsule,delayed release Previous Rx's ?Medication ?Instructions ?Recorded celecoxib 200 mg capsule See Rx Instructions .Route 03/21/24 .COMPLEX #30 caps methocarbamol 750 mg tablet See Rx Instructions .Route 03/24/24 .COMPLEX #90 tabs duloxetine 60 mg capsule,delayed See Rx Instructions .Route 04/07/24 release .COMPLEX #60 ea pregabalin 75 mg capsule 75 mg PO BID 30 days #60 caps 04/21/24 primidone 50 mg tablet 100 mg (2 x 50 mg) PO QID seizures 04/21/24 30 days #240 tabs amoxicillin 875 mg tablet 875 mg PO Q12H #20 tabs 05/01/24 benzonatate 100 mg capsule 100 mg PO TIDP PRN Cough #30 caps 05/01/24 methylprednisolone 4 mg tablets in 4 mg PO DIRECTED 6 days #21 tabs 05/01/24 a dose pack Allergies Allergy/AdvReac Type Severity Reaction Status Date / Time azithromycin (AZITHROMYCIN) Allergy Mild I-HIVES Verified 04/03/24 13:12 Worker's Comp Is this a Worker's Comp case?: No [facility] Disclaimer: The information contained in this section may have been updated after the patient was seen, as this information can be updated by other users. Medical History (Updated 05/01/24 @ 18:13 by Marc Chow APRN) Exposure to COVID-19 virus Otitis media Weakness Other dysphagia Laceration of left upper arm Flu-like symptoms Acute maxillary sinusitis Right otitis media Fever Acute cough Acute bronchitis Arthritis History of recurrent ear infection Anxiety Surgical History History of hysterectomy History of cholecystectomy Social History Smoking Status: Never smoker alcohol intake: never substance use type: denies use current occupational status: other Travel in the last 8 weeks: None household members: spouse housing: house caffeine: Yes Have you lived/traveled outside [place] in past 30 days?: No Contact w/someone who lives/traveled outside [place] past 30 days?: No Exposure to someone with infectious disease in past 14 days?: No Do you have a fever (greater than 100.4 F or 38 C)?: No Have you tested positive for COVID-19: No Exposed to someone with COVID-19 in past 14 days?: No Do you have a sore throat?: Yes Do you have a cough?: Yes Do you have any weakness?: No Do you have any diarrhea?: No Are you experiencing any unusual bleeding?: No Do you have any muscle aches/pain?: No Do you have any abdominal pain?: No Are you experiencing loss of taste or smell?: No ROS Obtained: Yes All systems reviewed & no additional complaints except as documented Constitutional Constitutional: Denies chills, Reports fever(s) and Reports poor appetite Eyes Eyes: Denies eye discharge ENT Ears, Nose, Mouth, and Throat: Denies ear discharge, Reports otalgia, Denies hearing loss, Denies sinus pain and Reports sore throat Cardiovascular Cardiovascular: Denies chest pain and Denies dyspnea Respiratory Respiratory: Denies chest congestion, Reports cough and Denies dyspnea Gastrointestinal Gastrointestingal: Denies abdominal pain, diarrhea, nausea or vomiting Musculoskeletal Musculoskeletal: Denies arthralgias Integumentary/Breasts Skin/Breast: Denies rash Physical Exam General General appearance: alert and in no apparent distress Head Head exam: atraumatic, normocephalic and normal inspection Eye Eye exam: Present normal appearance; Absent PERRL or EOMI ENT ENT exam: Present mucous membranes moist and normal external ear exam Expanded ENT Exam TM/Canal exam: Bilateral TM: erythema, bulging and effusion Nose exam: Absent sinus tenderness Nasal speculum exam: Bilateral: normal Mouth exam: Present normal external inspection and other; Absent drooling Teeth exam: Present normal inspection Throat exam: Present tonsillar erythema and tonsillomegaly Neck Neck exam: Present normal inspection, full ROM and trachea midline; Absent tenderness, meningismus or lymphadenopathy Chest Chest inspection: Present normal inspection and symmetric chest wall rise; Absent tenderness Respiratory Respiratory exam: Present normal lung sounds bilaterally; Absent respiratory distress, wheezes or stridor Cardiovascular Cardiovascular exam: Present regular rate, normal rhythm and normal heart sounds; Absent tachycardia or irregular rhythm Abdominal Exam Abdominal exam: Present soft and normal bowel sounds; Absent distention, tenderness, guarding, rebound or rigidity Extremities Exam Extremities exam: Present normal inspection and normal capillary refill; Absent tenderness, joint swelling or calf tenderness Back Exam Back exam: Present normal inspection and full ROM; Absent tenderness, CVA tenderness (R) or CVA tenderness (L) Neurological Exam Neurological exam: Present alert, oriented X3, CN II-XII intact, normal gait and reflexes normal; Absent motor sensory deficit Psychiatric Psychiatric exam: Present normal affect and normal mood Skin Skin exam: Present warm, dry, intact and normal color Lymphatic Lymphatic Findings: no adenopathy Medical Decision Making Medical Records Medical records reviewed: No I reviewed the patient's medical records. Screening: Per USPSTF and CDC recommendations, given the prevalence of disease in our region, it is our hospital?s policy to screen for HIV and viral Hepatitis for all patients aged 18 and over and those with ongoing risk factors. Jason Inquiry Pt receiving controlled substance: No Vital Signs: 05/01/24 17:32 Temperature 98.3 F Temperature Source Oral Pulse Rate [Left Radial] 115 H Respiratory Rate 20 Blood Pressure [Left Arm] 131/60 Blood Pressure Mean [Left Arm] 83 02 Sat by Pulse Oximetry 95
[2024-05-01 18:22] LABS: Coronavirus 19, PCR Not Detected (NotDetected); Influenza A, PCR Not Detected (NotDetected); Influenza B, PCR Not Detected (NotDetected)
[2024-05-01 18:24] VITALS: BP 131/60; PULSE 115; RESP 20; TEMP 36.8
[2024-05-01 18:42] LABS: RSV Rapid Ab Screen Negative (Negative)
[2024-05-02 19:05] LABS: UTC Influenza A Antigen Negative (Negative); UTC Influenza B Antigen Negative (Negative)
== END 2024-05-01 18:25 | disposition home or self-care (01) ==
PROVIDERS: Emergency Provider Nurse Practitioner Family; PCP Nurse Practitioner Family
DX: H66.93 Otitis media, unspecified, bilateral (principal); J02.9 Acute pharyngitis, unspecified
CPT/HCPCS: 87636; 87804; 87807; 99213; G0381

== ENCOUNTER 2024-05-19 14:37 | Outpatient (CLI) | payer BC, SELFPAY ==
[2024-05-19 15:09] LABS: Basophils # 0.1 K/mm3 (0-0.2); Basophils % 0.8 % (0.1-2.0); Eosinophils # 0.5 K/mm3 (0.0-0.4); Eosinophils % 6.8 % (0.1-12.0); Hemoglobin 14.2 g/dL (12.2-16.2); Lymphocytes % 40.9 % (10-50); Mean Corpuscular HGB Conc 34.6 g/dL (31.8-35.4); Mean Corpuscular Hemoglobin 32.1 pg (27.0-31.2); Mean Corpuscular Volume 92.6 fl (81-99); Mean Platelet Volume 10.3 fl (7.4-10.4); Monocytes # 0.5 K/mm3 (0.1-1.0); Monocytes % 6.8 % (1.7-9.3); Neutrophils # 3.2 K/mm3 (1.8-7.8); Neutrophils % 44.6 % (37.0-80.0); Platelet Count 249 K/mm3 (142-424); Red Blood Count 4.43 M/mm3 (4.20-5.40); Red Cell Distribution Width 12.2 % (11.5-17.5); White Blood Count 7.2 K/mm3 (4.8-10.8)
[2024-05-19 15:48] LABS: Albumin Level 4.4 g/dl (3.5-5.0); Chloride 108 mmol/L (98-107); Sodium 137 mmol/L (136-145)
[2024-05-19 15:49] LABS: Potassium 4.1 mmoL/L (3.5-5.1)
[2024-05-19 15:51] LABS: Alanine Aminotransferase 24 U/L (12-78); Anion Gap 10.1 mEq/L (5-15); Aspartate Amino Transferase 23 U/L (14-36); Blood Urea Nitrogen 10 mg/dl (7-17); Carbon Dioxide 23 mmol/L (22.0-30.0); Estimated Glomerular Filt Rate 89 ml/min (>60); GFR (African American) 108 ML/MIN (>60)
[2024-05-19 15:52] LABS: Albumin/Globulin Ratio 1.9 (1.1-1.8); Alkaline Phosphatase 87 U/L (38-126); Bilirubin,Total 0.3 mg/dl (0.2-1.3); Calcium 9.1 mg/dl (8.4-10.2); Globulin 2.3 g/dL (1.3-3.2); Glucose 84 mg/dl (74-100); Total Protein,Serum 6.7 g/dl (6.3-8.2)
[2024-05-19 16:14] LABS: Thyroid Stimulating Hormone 0.51 uIU/mL (0.465-4.68)
[2024-05-19 16:28] LABS: Ferritin 14.4 ng/ml (6.24-137)
[2024-05-19 16:36] LABS: Vitamin B12 > 1000 pg/mL (239-931)
[2024-05-19 17:40] LABS: 25-OH Vitamin D, Total 20.7 ng/mL (30-100)
[2024-05-22 00:07] LABS: Vitamin C 0.6 mg/dL (0.4-2.0)
== END 2024-05-19 23:59 | disposition home or self-care (01) ==
LOC: LAB 14:37
PROVIDERS: PCP Nurse Practitioner Family; Visit Provider Nurse Practitioner Family
DX: D64.9 Anemia, unspecified (principal); B99.9 Unspecified infectious disease
CPT/HCPCS: 36415; 80053; 82180; 82306; 82607; 82728; 83036; 84443; 85025

== ENCOUNTER 2024-06-04 08:56 | Outpatient (POV) | payer BC, SELFPAY ==
--- NOTE | 2024-06-04 09:01 | A.OFFVIS_ITS ---
[facility] Disclaimer: The information contained in this section may have been updated after the patient was seen, as this information can be updated by other users. Medical History Acute bronchitis Acute cough Acute maxillary sinusitis Anxiety Arthritis Exposure to COVID-19 virus Fever Flu-like symptoms History of recurrent ear infection Laceration of left upper arm Other dysphagia Otitis media Right otitis media Weakness Surgical History History of cholecystectomy History of hysterectomy Social History Smoking Status: Current every day smoker tobacco type: cigarettes packs per day: 1 alcohol intake: never substance use type: denies use current occupational status: other Travel in the last 8 weeks: None household members: spouse housing: house caffeine: Yes Have you lived/traveled outside [place] in past 30 days?: No Contact w/someone who lives/traveled outside [place] past 30 days?: No Exposure to someone with infectious disease in past 14 days?: No Do you have a fever (greater than 100.4 F or 38 C)?: No Have you tested positive for COVID-19: No Exposed to someone with COVID-19 in past 14 days?: No Do you have a sore throat?: No Do you have a cough?: No Do you have any weakness?: No Do you have any diarrhea?: No Are you experiencing any unusual bleeding?: No Do you have any muscle aches/pain?: No Do you have any abdominal pain?: No Are you experiencing loss of taste or smell?: No PM Subjective & Objective Subjective Subjective:: Patient is a pleasant 48-year-old female who presents today for 6-week follow- up. Today she rates her pain a 0out of 10. She denies any new trauma or injury. Patient did previously have a right SI injection back at the end of February that did provide 100% relief. She states that she is still doing wonderful from this injection and states that she is able to continue to do activities with minimal to no pain. Patient is prescribed compounded cream from our office and pregabalin from an outside provider. Her Jason has been reviewed and is appropriate. Review of Systems: General: No recent weight changes, no fever, no sleep disturbances Respiratory: No cough, no shortness of air, no recurring pulmonary infections Cardiovascular/peripheral vascular: No chest pain, no palpitations, no edema, no shortness of breath Gastrointestinal: No new onset incontinence, normal bowel movements reported Genitourinary: No new onset incontinence Musculoskeletal: Low back pain Psychiatric: [Normal mood/affect] Neurological: [Denies weakness in extremities], [denies balance issues] Pain at rest (0-10 scale): 0 Objective Objective:: Physical Exam: General: Alert and oriented x3, no acute distress, pleasant and cooperative Lungs: Respirations even and unlabored, symmetrical chest expansion Eyes: PERRL Musculoskeletal: Flexion and extension of lumbar spine within normal limits Neurological: Speech clear, no gross sensory deficit Has patient had previous pain injection?: No Conservative treatment options previously tried: Home exercise plan Length of treatment: Longer than 12 weeks Meds Home Medications and Allergies Home Medications ?Medication ?Instructions ?Recorded ?Confirmed ?Type azelastine 137 mcg (0.1 %) nasal 2 spray intranasal BID 05/08/23 05/19/24 History spray fexofenadine 180 mg tablet 180 mg PO DAILY 11/20/23 05/19/24 History (Tri Allergy) esomeprazole magnesium 20 mg 20 mg PO DAILY 04/03/24 05/19/24 History capsule,delayed release methocarbamol 750 mg tablet See Rx Instructions .Route 05/12/24 05/19/24 Rx .COMPLEX #90 tabs primidone 50 mg tablet See Rx Instructions .Route 05/16/24 05/19/24 Rx .COMPLEX #240 tabs amoxicillin 875 mg-potassium 1 tab PO BID 14 days #28 tabs 05/19/24 05/19/24 Rx clavulanate 125 mg tablet celecoxib 200 mg capsule See Rx Instructions .Route 05/19/24 05/19/24 Rx .COMPLEX 90 days #90 caps fluconazole 100 mg tablet 100 mg PO DAILY 14 days #14 tabs 05/19/24 05/19/24 Rx levocetirizine 5 mg tablet (Xyzal) 5 mg PO DAILY #90 tabs 05/19/24 05/19/24 Rx pregabalin 75 mg capsule 75 mg PO BID 90 days #180 caps 05/20/24 Rx duloxetine 60 mg capsule,delayed See Rx Instructions .Route 06/02/24 Rx release .COMPLEX #60 ea New Prescriptions to Start Prescriptions: Allergies Allergy/AdvReac Type Severity Reaction Status Date / Time azithromycin (AZITHROMYCIN) Allergy Mild I-HIVES Verified 05/19/24 13:52 Assessment and Plan *Assessment and plan (1) Degenerative disc disease, lumbar: Status: Acute Category: Medical Code(s): M51.369 - Other intervertebral disc degeneration, lumbar region without mention of lumbar back pain or lower extremity pain (2) Degenerative disc disease, cervical: Status: Acute Category: Medical Code(s): M50.30 - Other cervical disc degeneration, unspecified cervical region (3) Sacroiliitis: Status: Acute Category: Medical Code(s): M46.1 - Sacroiliitis, not elsewhere classified Plan Patient continues to have significant improvement following her SI injection from back in February and does not require any additional injection therapy. Patient will return to clinic in 3 months for reevaluation of symptoms and plan of care. Patient has been instructed to contact the clinic with any concerns before the next appointment. Dr. Wharton has reviewed this note and agrees with this plan of care. This note was dictated using voice recognition software and make contain errors or omissions. All injections are used with Lidocaine, Bupivacaine and Depo Medrol. Occasionally urine drug screen is needed to verify patient's compliance with our office pain contract. This is ordered based off specific treatments related to chronic pain with the potential to abuse certain medications.
[2024-06-04 09:17] VITALS: BP 129/88; PULSE 115; RESP 14; O2SAT 98; BMI 29.9
[2024-06-04 09:46] VITALS: BP 129/88; PULSE 115; RESP 14; O2SAT 98; BMI 29.9
== END 2024-06-04 23:59 | disposition home or self-care (01) ==
LOC: SC.PAIN 08:56
PROVIDERS: PCP Nurse Practitioner Family; Visit Provider Nurse Practitioner Family
DX: M51.369 Other intervertebral disc degeneration, lumbar region without mention of lumbar back pain or lower extremity pain (principal); M50.30 Other cervical disc degeneration, unspecified cervical region; M46.1 Sacroiliitis, not elsewhere classified; F17.210 Nicotine dependence, cigarettes, uncomplicated
CPT/HCPCS: 99212; G0463

== ENCOUNTER 2024-06-10 13:55 | Outpatient (CLI) | payer BC, SELFPAY ==
--- NOTE | 2024-06-10 13:56 | CT_ITS ---
FINAL REPORT TECHNIQUE: Thin section axial CT images were obtained without contrast. Coronal and sagittal reconstruction images were obtained and reviewed. This study was performed with techniques to keep radiation doses as low as reasonably achievable, (ALARA). Individualized dose reduction techniques using automated exposure control or adjustment of mA and/or kV according to the patient''s size were employed. CLINICAL HISTORY: recurrent sinusitis COMPARISON: None FINDINGS: There is a mucous retention cyst within the posterior right sphenoid sinus measuring 11 mm. There is minimal mucosal thickening within the inferior right maxillary sinus measuring up to 3 mm. The remaining paranasal sinuses are clear. The ostiomeatal complex is clear. There is minimal nasal septal deviation to the left measuring 2 mm or less. Nasal septal deviation IMPRESSION: No findings of acute sinusitis. Reviewed, Interpreted and Dictated by Merly Mack MD Transcribed by Shirin Clarke Authenticated and [facility]
--- NOTE | 2024-06-10 14:09 | MR_ITS ---
FINAL REPORT TECHNIQUE: Multiplanar MR without contrast CLINICAL HISTORY: Right posterior knee pain and swelling WHEN PATIENT WALKS SHE STATED KNEE POPS AND PAIN POSTERIOR FINDINGS: Articular cartilage: Grade III chondromalacia patella. Moderate diffuse thinning of the articular cartilage. Marrow signal: Mild subchondral marrow edema of the patella related to arthritic disease. Joint fluid: Small Menisci: Normal morphology without tear Ligaments: Collateral, cruciate and patellofemoral ligaments intact Tendons: Quadriceps and patellar tendon normal IMPRESSION: Degenerative changes without evidence of meniscal or ligamentous injury. Reviewed, Interpreted and Dictated by Merly Mack MD Transcribed by Lissette Santana Authenticated and [facility]
== END 2024-06-10 23:59 | disposition home or self-care (01) ==
LOC: RAD 13:56
PROVIDERS: PCP Nurse Practitioner Family; Visit Provider Nurse Practitioner Family
DX: J32.9 Chronic sinusitis, unspecified (principal); M25.561 Pain in right knee
CPT/HCPCS: 70486; 73721

== ENCOUNTER 2024-07-15 14:34 | Outpatient (CLI) | payer BC, SELFPAY ==
--- NOTE | 2024-07-15 14:37 | XR_ITS ---
FINAL REPORT CLINICAL HISTORY: Right Knee Pain COMPARISON: 08/29/2021 FINDINGS: RIGHT KNEE 3 views of the right knee were obtained. There is no acute fracture or dislocation. There are mild tricompartmental degenerative changes. A tiny joint effusion is noted. Soft tissues are unremarkable. IMPRESSION: Mild degenerative changes. Reviewed, Interpreted and Dictated by Merly Mack MD Transcribed by Edith Gibson Authenticated and [facility]
== END 2024-07-15 23:59 | disposition home or self-care (01) ==
LOC: RAD 14:35
PROVIDERS: PCP Nurse Practitioner Family; Visit Provider Physician Assistant
DX: M25.561 Pain in right knee (principal)
CPT/HCPCS: 73562

== ENCOUNTER 2024-12-01 10:06 | Outpatient (POV) | payer BC, SELFPAY ==
[2024-12-01 10:21] VITALS: BP 140/65; PULSE 99; RESP 16; O2SAT 98; BMI 32.9
--- NOTE | 2024-12-01 10:43 | EXP.PAIN.SOA ---
[facility] Disclaimer: The information contained in this section may have been updated after the patient was seen, as this information can be updated by other users. Medical History Acute bronchitis Acute cough Acute maxillary sinusitis Anxiety Arthritis Cough Exposure to COVID-19 virus Fever Flu-like symptoms History of recurrent ear infection Laceration of left upper arm Other dysphagia Otitis media Right otitis media Weakness Surgical History History of cholecystectomy History of hysterectomy Social History (Updated 11/21/24 @ 13:41 by Mar He CMA) Smoking Status: Current every day smoker tobacco type: cigarettes packs per day: 1 alcohol intake: never substance use type: denies use current occupational status: other Travel in the last 8 weeks?: None household members: spouse housing: house caffeine: Yes PM Subjective & Objective Subjective Subjective:: Patient is a pleasant 49-year-old female who presents today for worsening low back and right hip pain. She rates in an 8 out of 10. Patient states that it has progressively worsened from her last visit with's. Patient states that she has even fallen a couple of times where the hip just gives out. Patient denies any specific trauma or injury. Patient does state that her primary care has already ordered advanced imaging of an MRI with contrast. Patient is prescribed compounded cream from our office however states that it does not seem like it is doing much improvement currently. Patient is prescribed pregabalin from an outside provider. Patient is interested in any options we may be able to provide as it is interfering with her ability perform his activities of daily living such as cooking and cleaning. Patient states she has tried everything including daily exercising in the pool, hot tub and even getting a new mattress with minimal changes. Her Jason has been reviewed and is appropriate. Review of Systems: General: No recent weight changes, no fever, no sleep disturbances Respiratory: No cough, no shortness of air, no recurring pulmonary infections Cardiovascular/peripheral vascular: No chest pain, no palpitations, no edema, no shortness of breath Gastrointestinal: No new onset incontinence, normal bowel movements reported Genitourinary: No new onset incontinence Musculoskeletal: Low back pain, right hip pain Psychiatric: [Normal mood/affect] Neurological: [Denies weakness in extremities], [denies balance issues] Pain at rest (0-10 scale): 8 Objective Objective:: Physical Exam: General: Alert and oriented x3, no acute distress, pleasant and cooperative Lungs: Respirations even and unlabored, symmetrical chest expansion Eyes: PERRL Musculoskeletal: Flexion and extension of lumbar [spine] somewhat guarded secondary to pain, [antalgic gait noted] point tenderness along right SI and point tenderness along right greater trochanteric bursa with positive right Lucio's, Yanira's, Gaenslen's, compression and distraction exam Neurological: Speech clear, no gross sensory deficit Has patient had previous pain injection?: No Conservative treatment options previously tried: Home exercise plan Length of treatment: Longer than 12 weeks Meds Home Medications and Allergies Home Medications ?Medication ?Instructions ?Recorded ?Confirmed ?Type esomeprazole magnesium 20 mg 20 mg PO DAILY 04/03/24 12/01/24 History capsule,delayed release levocetirizine 5 mg tablet (Xyzal) 5 mg PO DAILY #90 tabs 05/19/24 12/01/24 Rx azelastine 137 mcg (0.1 %) nasal 2 spray intranasal BID #30 mL 07/01/24 12/01/24 Rx spray primidone 50 mg tablet 100 mg (2 x 50 mg) PO Q6H 90 days 07/01/24 12/01/24 Rx #720 tabs albuterol sulfate 90 mcg/actuation 2 puff inhalation Q4-6H PRN 09/23/24 12/01/24 Rx aerosol inhaler shortness of breath or wheezing #6.7 grams methocarbamol 750 mg tablet See Rx Instructions .Route 11/07/24 12/01/24 Rx .COMPLEX #90 tabs celecoxib 200 mg capsule 200 mg PO DAILY 11/21/24 12/01/24 History methylprednisolone 4 mg tablets in See Rx Instructions PO PER PKG DIR 11/21/24 12/01/24 Rx a dose pack (Medrol (Maikel)) #21 tabs pregabalin 100 mg capsule 100 mg PO BID 90 days #180 caps 11/21/24 12/01/24 Rx rizatriptan 10 mg disintegrating 10 mg PO ONCE PRN migraine headache 11/21/24 12/01/24 History tablet duloxetine 60 mg capsule,delayed See Rx Instructions .Route 08/03/25 08/04/25 Rx release .COMPLEX #60 ea New Prescriptions to Start Prescriptions: Allergies Allergy/AdvReac Type Severity Reaction Status Date / Time azithromycin (AZITHROMYCIN) Allergy Mild I-HIVES Verified 11/21/24 13:31 Assessment and Plan *Assessment and plan (1) Sacroiliitis: Status: Acute Category: Medical Code(s): M46.1 - Sacroiliitis, not elsewhere classified (2) Trochanteric bursitis of right hip: Status: Acute Category: Medical Code(s): M70.61 - Trochanteric bursitis, right hip Plan Patient is experiencing worsening pain along her low back and right hip with limited range of motion. Patient did have point tenderness along her right SI and right greater trochanteric bursa during today's exam. I did discuss with patient that I do believe she would benefit from a right SI and right greater trochanteric bursa injection. Risk and benefits were discussed with the patient and she would like to proceed forward with this plan of care. Patient has had this pain for longer than a year unrelieved with conservative measures such as oral medication, heat and ice, topicals, at home stretching exercise for longer than 12 weeks. Patient has also been doing pool therapy with no changes. Patient has had significant improvement with SI injections in the past with her last injections in February 2024 that did provide 100% relief and lasted longer than 3 months. This will be a therapeutic injection with less than 1.5 mL of solution to be injected. I will also increase the patient's compounded cream concentration. Patient will be scheduled for a right SI and right bursa injection under fluoroscopy. Patient has been instructed to contact the clinic with any concerns before the next appointment. Dr. Wharton has reviewed this note and agrees with this plan of care. This note was dictated using voice recognition software and make contain errors or omissions. All injections are used with Lidocaine, Bupivacaine and dexamethasone unless diagnostic in which case there is no steroids injected. Occasionally urine drug screen is needed to verify patient's compliance with our office pain contract. This is ordered based off specific treatments related to chronic pain with the potential to abuse certain medications.
== END 2024-12-01 23:59 | disposition home or self-care (01) ==
LOC: SC.PAIN 10:07
PROVIDERS: PCP Nurse Practitioner Family; Visit Provider Nurse Practitioner Family
DX: M46.1 Sacroiliitis, not elsewhere classified (principal); M70.61 Trochanteric bursitis, right hip; Z79.899 Other long term (current) drug therapy
CPT/HCPCS: 99212; G0463

== ENCOUNTER 2024-12-30 12:37 | Outpatient (CLI) | payer BC, MEDICARE, SELFPAY ==
--- NOTE | 2024-12-30 13:00 | MR_ITS ---
FINAL REPORT CLINICAL HISTORY: LBP with LE numbness and tingling numbness in right leg 18 ml prohance COMPARISON: 11/09/2023 FINDINGS: Multiplanar MR imaging of the lumbar spine was performed without and with contrast. On the sagittal T2-weighted images, disc degeneration is seen involving the L3-4 and L4-5 levels. The vertebral alignment is normal. There is no evidence of fracture. The conus is seen at approximately the L1 level and has an unremarkable appearance. L1-2:No significant canal stenosis or neuroforaminal narrowing is seen. L2-3: No significant canal stenosis or neuroforaminal narrowing is seen. L3-4: No significant canal stenosis or neuroforaminal narrowing is seen. L4-5: An annular bulge is present. There is mild to moderate bilateral neural foraminal narrowing. There may be a small annular tear noted in the left neural foramen. L5-S1: An annular bulge is present. No significant canal stenosis or neuroforaminal narrowing is seen. No abnormal contrast enhancement is identified. IMPRESSION: Mild degenerative change at the L4-5 level, and there may be a small annular tear in the left L4-5 neural foramen. Reviewed, Interpreted and Dictated by Donovan Polk MD Transcribed by Nannette Michael Authenticated and . [facility]
[2024-12-30] MEDS: GADOTERIDOL INJ 20ML SYRINGE 18 ML IV (13:48)
[2024-12-30] MEDS: SODIUM CHLORIDE 0.9% 10ML SYR (RAD ONLY) 10 ML IV (13:48)
== END 2024-12-30 23:59 | disposition home or self-care (01) ==
LOC: RAD 12:38
PROVIDERS: PCP Nurse Practitioner Family; Visit Provider Nurse Practitioner Family
DX: M47.816 Spondylosis without myelopathy or radiculopathy, lumbar region (principal); M51.369 Other intervertebral disc degeneration, lumbar region without mention of lumbar back pain or lower extremity pain; R90.89 Other abnormal findings on diagnostic imaging of central nervous system; R20.0 Anesthesia of skin; R20.2 Paresthesia of skin
CPT/HCPCS: 72158; A9576

== ENCOUNTER 2025-01-04 11:17 | Emergency (ER) | payer BC, MEDICARE, SELFPAY ==
[2025-01-04 11:26] VITALS: BP 162/96; PULSE 116; RESP 20; TEMP 37.2; O2SAT 95; BMI 31.8
[2025-01-04 11:31] VITALS: BP 145/87; PULSE 112; RESP 13; O2SAT 97
--- NOTE | 2025-01-04 11:31 | HMH.EDGENADL ---
Discharge Plan Disposition Patient Disposition: Home, Self-Care Condition: Fair Prescriptions Prescriptions: New promethazine 25 mg tablet 25 mg PO Q6H PRN (Reason: nausea and vomiting) Qty: 14 0RF No Action esomeprazole magnesium 20 mg capsule,delayed release(DR/EC) 20 mg PO DAILY levocetirizine [Xyzal] 5 mg tablet 5 mg PO DAILY Qty: 90 2RF azelastine 137 mcg (0.1 %) spray,non-aerosol 2 spray intranasal BID Qty: 30 4RF Rx Instructions: administer into each nostril primidone 50 mg tablet 100 mg PO Q6H 90 Days Qty: 720 1RF rizatriptan 10 mg tablet,disintegrating 10 mg PO ONCE PRN (Reason: migraine headache) Patient Comments: DISSOLVE 1 TABLET IN MOUTH ONCE DAILY NEEDED MAX 8 TABLETS PER MONTH albuterol sulfate 90 mcg/actuation HFA aerosol inhaler 2 puff inhalation Q4-6H PRN (Reason: shortness of breath or wheezing) Qty: 6.7 0RF celecoxib 200 mg capsule 200 mg PO DAILY pregabalin 100 mg capsule 100 mg PO BID 90 Days Qty: 180 0RF methylprednisolone [Medrol (Maikel)] 4 mg tablets,dose pack See Rx Instructions PO PER PKG DIR Qty: 21 0RF Rx Instructions: PO PER PKG DIR for 6 days duloxetine 60 mg capsule,delayed release(DR/EC) See Rx Instructions .ROUTE .COMPLEX Qty: 60 0RF Dose Instruction: TAKE 1 CAPSULE BY MOUTH TWICE DAILY FOR DEPRESSION Rx Instructions: TAKE 1 CAPSULE BY MOUTH TWICE DAILY FOR DEPRESSION methocarbamol 750 mg tablet See Rx Instructions .ROUTE .COMPLEX Qty: 90 0RF Dose Instruction: Take 1 tablet by mouth three times daily as needed for muscle spasm Rx Instructions: Take 1 tablet by mouth three times daily as needed for muscle spasm Referrals Follow up/Referrals: Shanda Sands APRN [Primary Care Provider, Medical] - See instructions Activity Restrictions/Add. Instructions Additional Instructions/Restrictions: Stay well-hydrated. Please follow up with your primary care provider in 2-3 days. Please return to ED if your symptoms worsen, change in location, change in severity, new symptoms develop or if you become concerned for your health. Clinical Impressions Clinical Impression: Acute gastroenteropathy due to Norovirus Instructions Patient Instructions: DI for Diarrhea and Traveler's Diarrhea -- Adult, DI for Diarrhea and Traveler's Diarrhea -- Child, DI for Nausea -- Adult, DI for Nausea -- Child Print Language Print Language: Citizen Of [place] Discharge ED Provider: Rishi Catherine Adult HPI General Chief complaint: Nausea/Vomiting/Diarrhea Stated complaint: vomiting, diarrhea, stomach pain, Time Seen by Provider: 01/04/25 11:19 Mode of Arrival: Ambulatory Source of Information: Patient Description of Symptoms (Recalled from ER Triage Doc. by RN): vomiting,diarrhea,abdominal cramping since 3am. other members of her home have had a stomach virus recently. History of Present Illness HPI narrative: Patient is a 49-year-old female with history of chronic low back pain. She presents today due to concerns for nausea vomiting and diarrhea since 3 and this morning. She X reports that diarrhea started 2 days ago. She reports that she was handling her grandson who vomited on her last week. She reports subjective chills, but denies any objective fevers. She denies any chest pain shortness of breath dysuria hematuria or flank pain that is new. She reports that she has not been able to keep anything down. She tried to take a crushed up Zofran this morning, but vomited it up immediately afterwards. She reports some mild epigastric tenderness that only began after vomiting. Reports it is a burning sensation Related Data Home Medications ?Medication ?Instructions ?Recorded ?Confirmed esomeprazole magnesium 20 mg 20 mg PO DAILY 04/03/24 12/01/24 capsule,delayed release celecoxib 200 mg capsule 200 mg PO DAILY 11/21/24 12/01/24 rizatriptan 10 mg disintegrating 10 mg PO ONCE PRN migraine headache 11/21/24 12/01/24 tablet Previous Rx's ?Medication ?Instructions ?Recorded levocetirizine 5 mg tablet (Xyzal) 5 mg PO DAILY #90 tabs 05/19/24 azelastine 137 mcg (0.1 %) nasal 2 spray intranasal BID #30 mL 07/01/24 spray primidone 50 mg tablet 100 mg (2 x 50 mg) PO Q6H 90 days 07/01/24 #720 tabs albuterol sulfate 90 mcg/actuation 2 puff inhalation Q4-6H PRN 09/23/24 aerosol inhaler shortness of breath or wheezing #6.7 grams methylprednisolone 4 mg tablets in See Rx Instructions PO PER PKG DIR 11/21/24 a dose pack (Medrol (Maikel)) #21 tabs pregabalin 100 mg capsule 100 mg PO BID 90 days #180 caps 11/21/24 duloxetine 60 mg capsule,delayed See Rx Instructions .Route 12/26/24 release .COMPLEX #60 ea methocarbamol 750 mg tablet See Rx Instructions .Route 12/26/24 .COMPLEX #90 tabs promethazine 25 mg tablet 25 mg PO Q6H PRN nausea and 01/04/25 vomiting #14 tabs Allergies Allergy/AdvReac Type Severity Reaction Status Date / Time azithromycin (AZITHROMYCIN) Allergy Mild I-HIVES Verified 11/21/24 13:31 [facility] Disclaimer: The information contained in this section may have been updated after the patient was seen, as this information can be updated by other users. Medical History Acute bronchitis Acute cough Acute maxillary sinusitis Anxiety Arthritis Cough Exposure to COVID-19 virus Fever Flu-like symptoms History of recurrent ear infection Laceration of left upper arm Other dysphagia Otitis media Right otitis media Weakness Surgical History History of cholecystectomy History of hysterectomy Social History (Updated 11/21/24 @ 13:41 by Mar He CMA) Smoking Status: Current every day smoker tobacco type: cigarettes packs per day: 1 alcohol intake: never substance use type: denies use current occupational status: other Travel in the last 8 weeks?: None household members: spouse housing: house caffeine: Yes Have you lived/traveled outside US in past 30 days?: No Contact w/someone who lives/traveled outside US past 30 days?: No Exposure to someone with infectious disease in past 14 days?: No Do you have a fever (greater than 100.4 F or 38 C)?: No Have you tested positive for COVID-19?: No Exposed to someone with COVID-19 in past 14 days?: No Do you have a sore throat?: No Do you have a cough?: No Do you have any weakness?: No Do you have any diarrhea?: Yes Are you experiencing any unusual bleeding?: No Do you have any muscle aches/pain?: No Do you have any abdominal pain?: No Are you experiencing loss of taste or smell?: No Other Medical History Have you received the Flu Vaccine for this season: No Have you received the Pneumonia Vaccine: No ROS Obtained: Yes All systems reviewed & no additional complaints except as documented Physical Exam General General appearance: alert and in no apparent distress Head Head exam: atraumatic and normocephalic Eye Eye exam: Present PERRL and EOMI ENT ENT exam: Present normal oropharynx Neck Neck exam: Present full ROM and trachea midline Chest Chest inspection: Present symmetric chest wall rise Respiratory Respiratory exam: Present normal lung sounds bilaterally; Absent stridor Cardiovascular Cardiovascular exam: Present regular rate and normal rhythm Abdominal Exam Abdominal exam: Present soft and tenderness (Mild epigastric); Absent distention, guarding or rebound Extremities Exam Extremities exam: Present full ROM Neurological Exam Neurological exam: Present alert and oriented X3 Psychiatric Psychiatric exam: Present normal mood Skin Skin exam: Present warm and dry Medical Decision Making Medical Records Screening: Per USPSTF and CDC recommendations, given the prevalence of disease in our region, it is our hospital?s policy to screen for HIV and viral Hepatitis for all patients aged 18 and over and those with ongoing risk factors. Jason Inquiry Pt receiving controlled substance: No Vital Signs: 01/04/25 11:26 01/04/25 11:31 01/04/25 13:30 Temperature 98.9 F Temperature Source Oral Pulse Rate 112 H 108 H Pulse Rate [Right] 116 H Respiratory Rate 20 13 13 Blood Pressure 145/87 H 115/82 Blood Pressure [Right Arm] 162/96 H Blood Pressure Mean [Right Arm] 118 02 Sat by Pulse Oximetry 95 97 99 Oxygen Delivery Method Room Air Lab Data Lab Results 01/04/25 11:28: WBC 13.9 H, RBC 4.98, Hgb 16.1, Hct 46.7, MCV 93.8, MCH 32.3 H, MCHC 34.5, RDW 12.7, Plt Count 259, MPV 10.6 H, Neut % (Auto) 85.6 H, Lymph % (Auto) 6.5 L, [place] % (Auto) 4.4, Eos % (Auto) 2.7, Baso % (Auto) 0.4, Neut # (Auto) 11.9 H, Lymph # (Auto) 0.9, [place] # (Auto) 0.6, Eos # (Auto) 0.4, Baso # (Auto) 0.1, Sodium 140, Potassium 3.9, Chloride 105, Carbon Dioxide 25, Anion Gap 13.9, BUN 12, Creatinine 0.70, Estimated Creat Clear 133, Estimated GFR 89, Est GFR ( Amer) 108, Glucose 126 H, Calcium 9.7, Magnesium 1.6, Total Bilirubin 0.5, AST 34, ALT 36, Alkaline Phosphatase 113, Total Protein 8.1, Albumin 4.9, Globulin 3.2, Albumin/Globulin Ratio 1.5, Lipase 38, HCV Ab MACHO w/Rflx PCR Qn Negative, HIV Ag/Ab Combo Qual Negative 01/04/25 12:09: Stl C. cayetanensis PCR Not detected, Stool Rotavirus (PCR) Not detected, Stl Adenov F 40/41 PCR Not detected, Stool Astrovirus (PCR) Not detected, Stool Campylobacter PCR Not detected, Stl C.difficile Tox PCR Not detected, Stool Cryptosporidium PCR Not detected, Stl E.coli Shiga Tox PCR Not detected, Stool E coli O157 PCR Not detected, Stl Enterotoxigenic E PCR Not detected, Stool EPEC (PCR) Not detected, Stool EAEC (PCR) Not detected, Stl E. histolytica PCR Not detected, Stool Giardia Lamblia PCR Not detected, Stool Salmonella PCR Not detected, Stool Sapovirus (PCR) Not detected, Stl P. shigelloides PCR Not detected, Stl Shigella/EIEC PCR Not detected, St Y.enterocolitica PCR Not detected, Stool Vibrio (PCR) Not detected, Stl Vibrio cholerae PCR Not detected, Stl Norovirus GI/GII PCR Detected A 01/04/25 12:10: SARS-CoV-2 (PCR) Not detected, Influenza A Untype (PCR) Not detected, Influenza Type B (PCR) Not detected 01/04/25 11:28 01/04/25 11:28 Orders (Tests/Meds): ED MEDICATIONS Discontinued Medications Generic Name Dose Route Start Last Admin Trade Name Freq PRN Reason Stop Dose Admin Lactated Ringer's 1,000 mls @ 999 mls/hr 01/04/25 11:47 01/04/25 13:37 Lactated Ringer's 1000 Ml Bag IV 01/04/25 12:47 Infused .Q1H1M ONE Infusion Ondansetron HCl 4 mg 01/04/25 11:47 01/04/25 12:02 Ondansetron 4mg/2ml Vial IV 01/04/25 11:48 4 mg ONCE ONE Administration Promethazine HCl 25 mg 01/04/25 14:08 01/04/25 14:13 Promethazine 25mg Tablet PO 01/04/25 14:09 25 mg ONCE ONE Administration ORDERS Category Date Time Status CBC w/Auto Diff [Complete Blood Count Auto Diff] Stat Lab 01/04/25 11:28 Completed CMP [Comprehensive Metabolic Panel] Stat Lab 01/04/25 11:28 Completed Diarrhea 23 Panel, PCR Stat Lab 01/04/25 12:09 Completed HIV Combo Stat Lab 01/04/25 11:28 Completed Hepatitis C Ab Qual. W/ RFX Stat Lab 01/04/25 11:28 Completed Lipase Stat Lab 01/04/25 11:28 Completed MAG [Magnesium] Stat Lab 01/04/25 11:28 Completed Rapid PCR Covid and Flu A/B Stat Lab 01/04/25 12:10 Completed Medical Decision Narrative: Patient is a 49-year-old female who presents today for nausea vomiting and diarrhea with positive sick contacts at home. Subjective chills and diffuse bodyaches. On arrival, she is afebrile mildly tachycardic to 116, but otherwise stable. On exam she is warm and well-perfused with full pulses and brisk Apley refill, slightly dry mucous membranes, will fluid resuscitate which I suspect is the cause of her tachycardia which is dehydration. She has some mild epigastric reproducible tenderness, but certainly no peritoneal signs. Overall she looks well. Mo suspicious for viral syndrome gastroenteritis. Low concern clinically for pancreatitis. History of cholecystectomy, so cholecystitis unlikely and choledocholithiasis unlikely given nonobstructive pattern on the labs. Basic hematologic labs notable for leukocytosis to 13.9 which I favor to be reactive from her vomiting. No evidence of anemia no NATALY no significant electrolyte derangement. On reassessment after above inventions, patient reports improvement of symptoms and she is tolerating oral intake here. Tachycardia is improved. Strict return precautions are discussed, all questions answered, patient amenable to plan and discharge. Norovirus positive. Critical Care Critical Care Time Critical Care Time: No
[2025-01-04 11:53] LABS: Hematocrit 46.7 % (37.0-47.0); Hemoglobin 16.1 g/dL (12.2-16.2); Immature Granulocytes % 0.4 %; Mean Corpuscular HGB Conc 34.5 g/dL (31.8-35.4); Mean Corpuscular Hemoglobin 32.3 pg (27.0-31.2); Mean Corpuscular Volume 93.8 fl (81-99); Nucleated Red Blood Cells % 0 %; Platelet Count 259 K/mm3 (142-424); Red Blood Count 4.98 M/mm3 (4.20-5.40); Red Cell Distribution Width-SD 43.6 fL; White Blood Count 13.9 K/mm3 (4.8-10.8)
[2025-01-04 11:55] LABS: Albumin Level 4.9 g/dl (3.5-5.0); Chloride 105 mmol/L (98-107); Sodium 140 mmol/L (136-145)
[2025-01-04 11:56] LABS: Potassium 3.9 mmoL/L (3.5-5.1)
[2025-01-04 11:58] LABS: Alanine Aminotransferase 36 U/L (12-78); Albumin/Globulin Ratio 1.5 (1.1-1.8); Alkaline Phosphatase 113 U/L (38-126); Anion Gap 13.9 mEq/L (5-15); Aspartate Amino Transferase 34 U/L (14-36); Bilirubin,Total 0.5 mg/dl (0.2-1.3); Blood Urea Nitrogen 12 mg/dl (7-17); Carbon Dioxide 25 mmol/L (22.0-30.0); Creatinine Clearance Estimated 133 mL/min (50-200); Creatinine,Serum 0.70 mg/dl (0.52-1.04); Estimated Glomerular Filt Rate 89 ml/min (>60); GFR (African American) 108 ML/MIN (>60); Globulin 3.2 g/dL (1.3-3.2); Glucose 126 mg/dl (74-100); Lipase 38 U/L (23-300); Total Protein,Serum 8.1 g/dl (6.3-8.2)
[2025-01-04 11:59] LABS: Calcium 9.7 mg/dl (8.4-10.2); Magnesium 1.6 mg/dl (1.6-2.3)
[2025-01-04] MEDS: ONDANSETRON 4MG/2ML VIAL 4 MG IV (12:02)
[2025-01-04] MEDS: LACTATED RINGERS 1000ML 1,000 ML 999 ML IV (12:02)
[2025-01-04 12:12] LABS: Adenovirus F 40/41, stool Not Detected (NotDetected); Clostridium Difficile A/B, PCR Not Detected (NotDetected); Cyclospora Cayetanesis Not Detected (NotDetected); Plesimonas Shigalloides, PCR Not Detected (NotDetected); Salmonella, PCR Not Detected (NotDetected); Shiga-like toxin E coli Not Detected (NotDetected); Shigella Enterovasive E coli Not Detected (NotDetected); Vibrio, PCR Not Detected (NotDetected); Yersinia Entercolitica, PCR Not Detected (NotDetected)
[2025-01-04 12:14] LABS: Coronavirus 19, PCR Not Detected (NotDetected); Influenza A, PCR Not Detected (NotDetected); Influenza B, PCR Not Detected (NotDetected)
[2025-01-04 12:58] LABS: Hepatitis C Ab Qual. W/ RFX NEGATIVE (Negative)
[2025-01-04 13:30] VITALS: BP 115/82; PULSE 108; RESP 13; O2SAT 99
[2025-01-04] MEDS: PROMETHAZINE 25MG TABLET 25 MG PO (14:13)
[2025-01-04 14:36] VITALS: BP 115/82; PULSE 107; RESP 20; TEMP 37.1; O2SAT 95
== END 2025-01-04 14:40 | disposition home or self-care (01) ==
PROVIDERS: Emergency Provider Emergency Medicine; PCP Nurse Practitioner Family
DX: R10.13 Epigastric pain (principal); A08.11 Acute gastroenteropathy due to Norwalk agent; R11.2 Nausea with vomiting, unspecified; R19.7 Diarrhea, unspecified; M79.18 Myalgia, other site; F17.210 Nicotine dependence, cigarettes, uncomplicated
CPT/HCPCS: 80053; 83690; 83735; 85025; 86803; 87389; 87507; 87636; 96365; 99285; J2405; J7120

== ENCOUNTER 2025-01-16 16:41 | Outpatient (CLI) | payer BC, MEDICARE, SELFPAY | END 2025-01-16 23:59 | disposition home or self-care (01) | PROVIDERS: PCP Nurse Practitioner Family; Visit Provider Nurse Practitioner Family | DX: R19.7 Diarrhea, unspecified (principal) | CPT/HCPCS: 36415; 82785; 86003; 86008 ==

== ENCOUNTER 2025-02-27 14:41 | Outpatient (CLI) | payer BC, MEDICARE, SELFPAY ==
--- OUTSIDE RECORDS SUMMARY | 2025-02-16 13:00 | XMS_ITS | Encounter Summary ---
Author Organization [facility] Address [address] [place] [address] Care Team Providers Care Manufacturing Intern Name Role Phone Shanda Sands APRN Primary Care Provider [phone] Reason for Referral * MRI/CAT/PET Scan (Routine) - Closed Specialty Diagnoses / Procedures Referred By Fatih t Referred To Contact Diagnoses Complaints of leg weakness Procedures MRI Thoracic Spine Without Contrast Mica Brown PA-C [address] [facility] [address] [place] [address] Phone: tel: fax: [facility] - OUTPT PHYSICAL THERAPY [address] [place] [phone] Phone: tel: fax: Referral ID Status Reason Start Date Expiration Date Visits Re quested Visits Authorized [id number] Closed 02/16/2025 05/18/2026 1 1 Reason for [...] Paresthesia of skin Shanda Sands APRN [address] [address] Phone: tel: fax: [facility] [address] [place] [address] Phone: tel: fax: Referral ID Status Reason Start Date Expiration Date V isits Requested Visits Authorized [id number] Pending Review 01/29/2025 04/30/2026 2 2 Encounter Details Date Type Department Care Team (Late st Contact Info) Description 02/16/2025 1:00 PM EDT Office Visit [facility] [address] [facility] [address] [place] [address] Mica Brown PA-C [address] [facility] [address] [place], [place] [id number] Complaints of leg weakness (Primary Dx) Social [...] file Travel History Travel Start Travel End [place] 02/02/2025 02/06/2025 documented as of this encounter [...] bilateral leg pain History of Present Illness: rCiss Benoit is a 49 y.o. female with [...] History: Diagnosis Date Arthritis Cervical disc disorder Guillain-[place] 1990 Headache History of transfusion Lumbosacral disc [...] Nausea or Vomiting., Disp: , Rfl: rizatriptan SHIFT COORDINATOR (MAXALT-SHIFT COORDINATOR) 10 MG disintegrating tablet, DISSOLVE 1 TABLET [...] documented in this encounter Plan of Treatment Upcoming Encounters Date Type Department Care Team (Late st Contact Info) Description 03/03/2025 2:00 PM EST Office Visit [facility] [address] [place] [phone] Mica Brown PA-C [address] [facility] [address] [place] [address] Scheduled Orders Name Type Priority Associated Diagnoses [...] Primary documented in this encounter Care Teams Manufacturing Intern Relationship Specialty Start Date End Date Shanda Sands APRN [address] [place] [address] [address] [place] [address] PCP - General Internal Medicine 01/29/25 documented as of this encounter
--- NOTE | 2025-02-27 | MR_ITS ---
FINAL REPORT CLINICAL HISTORY: mid back pain with bilateral legs that give out COMPARISON: None FINDINGS: Multiplanar MR imaging of the thoracic spine was performed without contrast. On the sagittal T2-weighted images, no significant disc degeneration is identified. There is no evidence of fracture. The vertebral alignment is normal. No bony mass is identified. The thoracic spinal cord has an unremarkable appearance without evidence of mass, edema or syrinx. There is no evidence of canal stenosis or cord compression. On the axial images, no focal disc protrusion is identified. There is no evidence of significant canal stenosis. No paraspinous soft tissue abnormality is seen. IMPRESSION: Unremarkable thoracic spine without evidence of acute bony abnormality, disc protrusion or canal stenosis. Reviewed, Interpreted and Dictated by Donovan Polk MD Transcribed by Nannette Michael Authenticated and [facility]
--- OUTSIDE RECORDS SUMMARY | 2025-02-27 14:45 | XMS_ITS ---
Care Plan - [facility], [facility] Created on: February 27, 2025 Criss Benoit : 1975 Sex: Female Author Organization [facility] , [facility] Address [address] [place] [address] Phone Care Team Providers Care Pit Manager Name Role Phone Sandie Sands Primary Care Provider [phone] Jese BUSH, Simon Melendez Unavailable [phone]
--- OUTSIDE RECORDS SUMMARY | 2025-02-27 14:45 | XMS_ITS | Clinical Summary ---
Author Organization [facility] Address [address] [place] [address] Care Team Providers Care Miller Rod Mill Name Role Phone Shanda Sands APRN Primary Care Provider [phone] Allergies Active Allergy Reactions Criticality Noted Date Comments Azithromycin Hives Low 02/16/2025 Medications CeleBREX 200 MG capsule Active DULoxetine (CYMBALTA) 60 MG capsule TAKE 1 CAPSULE BY MOUTH TWICE DAILY FOR DEPRESSION 5 Active furosemide (LASIX) 20 MG tablet Active levocetirizine (XYZAL) 5 MG tablet Active methocarbamol (ROBAXIN) 750 MG tablet Active pregabalin (LYRICA) 100 MG capsule Active primidone (MYSOLINE) 50 MG tablet Active promethazine (PHENERGAN) 25 MG tablet Take 1 tablet by mouth Every 6 (Six) Hours As Needed for Nausea or Vomiting. 5 Active rizatriptan HEEL CEMENTER (MAXALT-HEEL CEMENTER) 10 MG disintegrating tablet DISSOLVE 1 TABLET IN MOUTH ONCE DAILY NEEDED MAX 8 TABLETS PER MONTH 5 Active Active Problems No known active problems Encounters Date Type Department Care Team Description 02/16/2025 1:00 PM EDT Office Visit [facility] [address] [facility] [address] [address] Mica Brown PA-C Complaints of leg weakness (Primary Dx) 02/16/2025 Travel from Last 3 Months Family History Medical History Relation Name Comments Arthritis Father Hypertension Father Arthritis Mother Hypertension Mother Relation Name Status Comments Father Alive Mother Alive Social History Tobacco Use Types Packs/Day Years [...] file Travel History Travel Start Travel End [place] 02/02/2025 02/06/2025 Last Filed Vital Signs Vital Sign Reading [...] Mass Index 32.95 02/16/2025 12:37 PM EDT Plan of Treatment Upcoming Encounters Date Type Department Care Team (Late st Contact Info) Description 03/03/2025 2:00 PM EST Office Visit [facility] [address] [facility] [place] [phone] Mica Brown PA-C [address]60 [facility] [address] [place] [address] Health Maintenance Due Date Last Done Comments Annual Gynecologic Pelvic and Breast Exam 1975 Pneumococcal Vaccine 0-49 (1 of 2 - PCV) 11/21/1994 PAP SMEAR 11/21/1996 MAMMOGRAM 2015 COLOGUARD 11/21/2020 COLON CANCER SCREENING 5 YEAR SIGMOIDOSCOPY 11/21/2020 COLONOSCOPY 11/21/2020 COLORECTAL CANCER SCREENING 11/21/2020 CT COLONOGRAPHY 11/21/2020 FECAL OCCULT BLOOD TEST 11/21/2020 FIT Testing (1 year) 11/21/2020 INFLUENZA VACCINE 11/28/2024 ANNUAL WELLNESS VISIT 02/16/2025 HEPATITIS C SCREENING 02/16/2025 TDAP/TD VACCINES (2 - Td or Tdap) 07/11/2030 021 Procedures Procedure Name Priority Date/Time Associated Diagnosis Comments SCANNED - LABS 01/04/2025 MRI OUTSIDE FILMS Routine 12/30/2024 12: 00 AM EDT SCANNED - IMAGING 12/30/2024 SCANNED EMG 12/15/2024 from Last 3 Months Results * LABS SCANNED (01/04/2025) Result [facility] LAB BLOOD ORDERABLES Final Re sult * IMAGING SCANNED (12/30/2024) Anatomical Region Laterality Modality Radiographic Samantha ging Result [facility] IMG DIAGNOSTIC IMAGING ORDERA BLES Final Result * MRI Outside Films (12/30/2024 12:00 AM EDT) Narrative SYSTEMGENERATED, DOCUMENTATION - 02/16/2025 12:42 PM EDT This procedure was auto-finalized with no dictation required. Result [facility] Mica Brown PA-C IMG MRI ORDERABLES Final Resul t * EMG SCANNED (12/15/2024) Result [facility] NEUR[facility] ORDER[facility]LES Final Re sult from Last [address] [facility] PPO Member Subscriber Plan / Payer (Ef fective 2020-Present) Name:Criss Benoit Relation to Subscriber:Spouse Name:Harry Beniot Date of :1971 Address: [address] [place] [address] Payer ID:[id number] (NAIC) Type:Not on file Address: [address] [place] [phone] MEDICARE A & B Care Teams Miller Rod Mill Relationship Specialty Start Date End Date Shanda Sands APRN [address] [place] [address] PCP - General Internal Medicine 01/29/25
--- OUTSIDE RECORDS SUMMARY | 2025-02-27 14:45 | XMS_ITS | Clinical Summary ---
Author Organization [facility] Address [address] [place] [address] Phone Care Team Providers Care Stonecutter Hand Name Role Phone Sandie Sands Primary Care Provider [phone] Jese BUSH, Simon Melendez Unavailable [phone] Reason for Visit and Chief Complaint The Chief Complaint is: Right ankle pain Problems Includes: Problems addressed during this encounter and other active Problems Current Visit Onset Date Resolved Date Provider Conditio n Status Lower Back Pain 12/13/2023 Simon Sawant MD Act ting Last Documented On 4 11:09AM ; [facility] Past Visits Onset Date Resolved Date Provider Condition Status Right Ankle Joint Pain 12/06/2017 Simon Sawant MD Active Last Documented On 8 8:36AM ; [facility] Plan of Treatment Patient was seen by myself Kunal Gallagher PA-C and Dr. Sawant We'll see her back as needed and encouraged her to just continue with her exercises on her own. - Last Documented On 01/24/2018 1:37PM ; [facility] Assessments Includes: Assessments from this encounter Findings Right ankle sprain - Last Documented On 01/24/2018 1:37PM ; [facility] Medical Equipment - Implanted Devices Includes: Current Devices No Medical Equipment Recorded Medications Includes: Medications discussed during this encounter and other current Medications Current Medications (continue as prescribed) Esomeprazole Magnesium 20 MG Oral Tablet Delayed Relea se 12/13/2023 Provider: Diagnosis: Last Documented On 4 11:27AM By Yany Peterson ; [facility] DULoxetine HCl 30 MG Oral Ca psule Delayed Release Particles 12/03/2023 Provider: MARCIA SANDS Diagnosis: Last Documented On 4 11:20AM By Tita Euceda ; [facility] Methocarbamol 750 MG Oral Tablet 11/20/2023 Provider : MARCIA SANDS Diagnosis: Last Documented On 4 11:20AM By Tita Euceda ; [facility] Pregabalin 50 MG Oral Capsule 11/20/2023 Provider: MARCIA SANDS Diagnosis: Last Documented On 4 11:20AM By Tita Euceda ; [facility] Celecoxib 200 MG Oral Capsule 11/20/2023 Provider: MARCIA SANDS Diagnosis: Last Documented On 4 11:20AM By Tita Euceda ; [facility] Primidone 50 MG Oral Tablet 11/17/2023 Provider: Gauri Stafford DO Diagnosis: Last Documented On 4 11:26AM By Yany Peterson ; [facility] Amitriptyline HCl 25 MG Oral Tablet 10/17/2023 Provi sony: MARCIA SANDS Diagnosis: Last Documented On 4 11:20AM By Tita Euceda ; [facility] Medications Administered Includes: Administered Medications from this encounter No Administered Medications Recorded Vital Signs Includes: Vital Signs from this encounter Vital Name 01/24/2018 09:17A Height (in) 65 Weight (lb) 182 Body Mass Index (kg/m2) 30.3 Body Surface Area (m2) 1.9 Note: jkp Last Documented: On 01/24/2018 9:17AM ; [facility] Results Includes: Results discussed during this encounter No Results Recorded For Specified Dates History of Present Illness Includes: History of Present Illness from this encounter HPI Criss Benoit is a 42 year old female. - Medication list reviewed. Follow-up on her right ankle sprain. The injection last visit did help her she says is still popping and it's painful but it is not as bad was previously. she says her ankle is not giving out. Social History Description Last Updated No tobacco use 01/03/2018 Last Documented On 8 9:01AM ; [facility] Smoking status : Current everyday smoker 01/03/2018 Last Documented On 8 9:01AM ; [facility] Medical History Includes: Medical History addressed during this encounter No Medical History Recorded Family History Includes: Family History addressed during this encounter No Family History Recorded Review of Systems Includes: Review of Systems from this encounter Systemic: Not feeling tired (fatigue), no recent weight loss, and no recent weight gain. Edema. Head: No headache. Sinus pain. No sinus pain. Eyes: No vision problems and no glaucomatous visual field defect. Otolaryngeal: No hearing loss and no tinnitus. No nasal symptoms. Cardiovascular: No chest pain or discomfort and no palpitations. Pulmonary: No daytime asthma symptoms and no cough. Chronic cough. No wheezing. Gastrointestinal: No heartburn and no abdominal pain. Endocrine: No hot flashes and no muscle weakness. Hematologic: No easy bleeding and no tendency for easy bruising. Musculoskeletal: No lower back pain. No soft tissue swelling and no localized joint pain. Neurological: No dizziness, no convulsions, and no numbness. Psychological: No anxiety, no emotional lability, no depression, and no insomnia. Not crying for no reason. Skin: No dry skin, no rash, and no ulcers. Allergic and Immunologic: Complaint of seasonal allergic reaction. Mental Status Includes: Mental Status from this encounter Description No anxiety Functional Status Includes: Functional Status from this encounter No Functional Status Recorded Physical Exam Includes: Physical Exam from this encounter Allergies Includes: Active Allergies Substance Type Reaction Onset Date Resolved Date Statu s Zithromax Z-Maikel Allergy Skin Rashes / Er uption of skin, Hives / Urticaria 12/06/2017 Active Last Documented On 4 11:27AM ; [facility] pain med sensitive Allergy 12/13/2023 Active Last Documented On 4 11:25AM ; [facility] Encounters Encounter Provider Location Date Check-In Time Check- Out Time Diagnosis Follow Up Simon Sawant MD [facility] 8 8:57AM 9:52AM Insurance Includes: Active Insurance Policies Plan Name Member ID Group # Subscriber Relationship Effect ting Dates 1 - [facility] [id number] Harry Benoit 04/30/2017 - Unknown Clinical Notes Includes: Clinical Notes from this encounter No Clinical Notes Recorded
--- OUTSIDE RECORDS SUMMARY | 2025-02-27 14:45 | XMS_ITS | Data Portability ---
Author Organization [facility] Address [address] [place] [address] Care Team Providers Care Special Services Supervisor Name Role Phone Nora RIVERS Primary Care Provider Assessment No assessment recorded. Plan of Treatment Reminders Order Date Submit Date Provider Last Modified By Organization Details Last Modified Time Details Appointments None recorded. Lab None recorded. Referral None recorded. Procedures None recorded. Surgeries None recorded. Imaging None recorded. Medication Orders rizatript an 10 mg disintegr ating tablet 2024 025 [facility], [address], [address], 16:57:04 Patient TargetsNo targets recorded. Patient Instructions Encounter Date Encounter Id Patient Instructions Last Modified By Organization Details Last Modified Time 07/22/2024 [id number] 1. Audiogram obtained in office today. Results reviewed and discussed with patient. 2. Bilateral otophotos obtained today in office 3. Begin new RX- Rizatriptan one tablet po max 8 tabs per month 4. Reviewed CT sinus imaging, clear CT sinus image uploaded to chart 5. Suggest patient administer sweet/olive oil to bilateral ears to help with cerumen impaction. 6. F/u prn maitouneddam Not available 07/22/2024 10:43:46 Reason for Referral None Reported. Results Created Date Observation Date Name Description Value Unit Range Abnormal Flag Note LastModifiedBy Organization Detail LastModifiedTime 07/24/1907/22/2024 audio gram No observ ation record ed. BARCODE Not Available 2024 08:54:43 Result Notes None recorded. Problems Name Problem SNOMED Code Status Onset Date Resolution Date Notes Provider Name and Address Organization Details Recorded Time Neck pain 46471152 Active 2015 From Automated Load;Prov ider: Charity Erwin;S tatus: Active Not Available [facility] 6 04:59:37 Pain of right hand 40574569813 9109 Active 2015 From Automated Load;Prov ider: Charity Erwin;S tatus: Active Not Available [facility] 6 04:59:37 Hand pain 33426352 Active 2015 From Automated Load;Prov ider: Charity Erwin;S tatus: Active Not Available [facility] 6 04:59:37 Finding of sensation by site Active 2015 From Automated Load;Prov ider: Charity Erwin;S tatus: Active Not Available [facility] 6 04:59:37 Headache 42790506 Active 2015 From Automated Load;Prov ider: Charity Erwin;S tatus: Active Not Available [facility] 6 04:59:37 Neuropath y 737543555 Active 2015 From Automated Load;Prov ider: Linsey Gamez;Sta tus: Active Not Available [facility] 6 04:59:37 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 From Automated Load;Prov ider: Linsey Gamez;Sta tus: Active Not Available [facility] 6 04:59:37 Inflammat ory neuropath y 25857500 Active 2015 From Automated Load;Prov ider: Linsey Gamez;Sta tus: Active Not Available [facility] 6 04:59:37 Paresthes ia of skin Active 2015 From Automated Load;Prov ider: Linsey Gamez;Sta tus: Active Not Available [facility] 6 04:59:37 Enzyme level - finding Active 2015 From Automated Load;Prov ider: Charity Erwin;S tatus: Active Not Available [facility] 7 06:35:45 Fibromyal desirae 595712489 Active 2016 CHARITY ERWIN, R[address]STABOUT [address] [place], [address] , [facility] 7 11:22:05 Problem Notes None recorded. Procedures Surgical History Date Name Laterality Status Provider Name and Address Organization Details Recorded Time 07/23/19 Tympanogram completed MAGNO EDGAR AUD [address] [place], [address], [facility] 07/22/2024 10:21:52 07/23/19 Audiogram completed MAGNO EDGAR AUD [address] [place], [address], [facility] 07/22/2024 10:21:50 05/31/19 hysterectomy completed Sheba Brand [facility] 07/22/2024 10:24:00 Cholecystectomy completed Maki Chawla [facility] 09/14/2016 11:17:47 Imaging Results None recorded. Procedure Notes None recorded. Medical Equipment None Reported. Allergies Allergen ID Allergen Name Allergen Category Reaction Reaction Severity Criticality Documentation Date Start Date Code Code System Note Provider Name and Address Organization Details Recorded Time 828171 azithromy fady medicatio n hives Not available Not available 03/24/20162015 22458 RxNorm React ion: HIVES ; Comme nt: Creat ed By: John padilla;Ki eated Date: 016 10:10 :57 AM; Not Available [facility] 6 09:49:48 Medications Name Sig Start Date Stop Date Status Note LastModified by Organization Details LastModified Time Prescript ion - Prior Authoriza tion Request active Not Available Not Available Not Available celecoxib 200 mg capsule TAKE 1 CAPSULE BY MOUTH ONCE DAILY active Not Available Not Available No t Available cyclobenz aprine 10 mg tablet TAKE 1 TABLET BY MOUTH THREE TIMES DAILY 07/22 completed Not Available Not Available Not Available fluconazo le 100 mg tablet TAKE 1 TABLET BY MOUTH ONCE DAILY FOR 14 DAYS 07/22 completed Not Available Not Available Not Available primidone 50 mg tablet TAKE 2 TABLETS BY MOUTH 4 TIMES DAILY FOR SEIZURES active Not Available Not Available No t Available doxycycli ne hyclate 100 mg capsule TAKE 1 CAPSULE BY MOUTH TWICE DAILY FOR 10 DAYS 07/22 completed Not Available Not Available Not Available prednison e 20 mg tablet TAKE 1 TABLET BY MOUTH TWICE DAILY FOR 5 DAYS 07/22 completed Not Available Not Available Not Available amoxicill in 875 mg tablet TAKE 1 TABLET BY MOUTH EVERY 12 HOURS 07/22 completed Not Available Not Available Not Available amitripty line 25 mg tablet TAKE 1 TABLET BY MOUTH ONCE DAILY AT BEDTIME active Not Available Not Available No t Available methocarb dianne 750 mg tablet TAKE 1 TABLET BY MOUTH THREE TIMES DAILY NEEDED FOR MUSCLE SPASM active Not Available Not Available No t Available benzonata te 100 mg capsule TAKE 1 CAPSULE BY MOUTH THREE TIMES DAILY NEEDED FOR COUGH active Not Available Not Available No t Available rizatript an 10 mg disintegr ating tablet Take 1 tablet every day by oral route as needed. 2024 active Not Available Not Available Not Avai lable oseltamiv ir 75 mg capsule TAKE 1 CAPSULE BY MOUTH ONCE DAILY FOR 10 DAYS active Not Available Not Available No t Available diclofena c sodium 75 mg tablet,de layed release TAKE 1 TABLET BY MOUTH TWICE DAILY WITH FOOD OR MILK active Not Available Not Available No t Available gabapenti n 100 mg capsule Take 1 capsule every day by oral route. active Not Available Not Available No t Available azelastin e 137 mcg (0.1 %) nasal spray USE 2 SPRAY(S) IN EACH NOSTRIL TWICE DAILY active Not Available Not Available No t Available methylpre dnisolone 4 mg tablets in a dose pack TAKE BY MOUTH DIRECTED ON INSIDE OF PACKAGE FOR 6 DAYS 07/22 completed Not Available Not Available Not Available albuterol sulfate HFA 90 mcg/actua tion aerosol inhaler INHALE 2 PUFFS BY MOUTH EVERY 4 TO 6 HOURS NEEDED FOR SHORTNES S OF BREATH OR WHEEZING active Not Available Not Available No t Available Vitamin D2 1,250 mcg (50,000 unit) capsule Every week 2015 active Duration : 28 days;Reji quency: Every week;Med ication Descript ion: ergocalc iferol; Dosage:1 ; Route:or al; refills: 2; Quantity :4 capsule Not Available Not Available Not Available cefdinir 300 mg capsule TAKE 1 CAPSULE BY MOUTH TWICE DAILY FOR 10 DAYS 07/22 completed Not Available Not Available Not Available amoxicill in 875 mg-potass ium clavulana te 125 mg tablet TAKE 1 TABLET BY MOUTH TWICE DAILY FOR 14 DAYS 07/22 completed Not Available Not Available Not Available duloxetin e 30 mg capsule,d elayed release TAKE 1 CAPSULE BY MOUTH TWICE DAILY FOR DEPRESSI ON 07/22 completed Not Available Not Available Not Available duloxetin e 60 mg capsule,d elayed release TAKE 1 CAPSULE BY MOUTH TWICE DAILY FOR DEPRESSI ON active Not Available Not Available No t Available pregabali n 50 mg capsule TAKE 1 CAPSULE BY MOUTH TWICE DAILY 07/22 completed Not Available Not Available Not Available pregabali n 75 mg capsule TAKE 1 CAPSULE BY MOUTH TWICE DAILY active Not Available Not Available No t Available levocetir izine 5 mg tablet TAKE 1 TABLET BY MOUTH ONCE DAILY active Not Available Not Available No t Available Airsupra 90 mcg-80 mcg/actua tion HFA aerosol inhaler INHALE 2 PUFFS BY MOUTH SIX TIMES DAILY NEEDED FOR SHORTNES S OF BREATH OR WHEEZING active Not Available Not Available No t Available Vitals Date Recorded Body height Body mass index (BMI) Body weight Body temperature Heart rate Systolic And Diastolic Provider Name and Address Organization Details Last Updated DateTime 5 165.1 cm 30 kg/m2 01766.6 3 g 97.2 [degF] 101 /min 134/98 mm[Hg] Pema Ketty [facility] 5 09:55:41 Date Recorded Body height Body weight Body mass index (BMI) Heart rate Systolic And Diastolic Provider Name and Address Organization Details Last Updated DateTime 09/14/2016 165.1 cm 47092.05 g 27.7 kg/m2 83 /min 95/67 mm[Hg] Makitony Chawla [facility] 7 11:19:06 Social History Question Answer Notes LastModified by Organizat ion Details LastModified Time Tobacco Smoking Status Current Every Day Smoker Makitony Chawla [facility] 09/14/2016 11:17:34 How Many Years Have You Smoked Tobacco? 20 spraria Information not available 07/22/2024 Sex: Female Functional Status Question Answer Note LastModified by Organization D etails LastModified Time What is your level of alcohol consumption? None [email or web address] Information not available 09/14/2016 Mental Status None recorded. Family History Relationship Description Onset Age of this Age Resolved Age Notes LastModified by Organization Details LastModified Time Father Hypertensive disorder spraria Not available 2024 10:21:48 Father Kidney disease spraria Not available 2024 10:23:30 Mother Hypertensive disorder spraria Not available 2024 10:21:48 Unspecified Relation Cerebrovascu lar accident grand parent s spraria Not available 07/22/2024 10:22:50 Medical History Condition Response Esophagus/swallowing troubles Y Arthritis Y Acid Reflux (GERD) Y Allergies/Hayfever Y Gynecological HistoryNo gynecological history recorded. Obstetrics History GPAL:G 0 P 0 0 0 0 Past Encounters Encounter ID Performer Location Encounter Start Date Encounter Closed Date Diagnosis/Indication Diagnosis SNOMED-CT Code Diagnosis ICD10 Code Diagnosis IMO Codes Diagnosis Note [id number] CHARITY ERWIN APRN [facility] [address] [place] [address] 09/14/2016 10:15:49 09/14/2016 13:57:59 Fibromyalgia 766707557 M79.7 chronic and recurring with pcp management available with dx as pcp recently added neurontin and cyclobenza prinewill initiate diclofenac twice daily and continue on cymbalta 30 mg twice daily due to the ill symptoms she had on 60 mg once daily [id number] MD ALIZA RIVERA [facility] [address] [place] [address] 07/22/2024 09:09:13 07/22/2024 11:27:20 Conductive hearing loss of right ear 4694124152 H90.11 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 Migraine 04130389 G43.90 9 [id number] GILDA HOOD [facility] [address] [place] [address] 07/22/2024 10:21:29 07/22/2024 10:22:48 Conductive hearing loss of right ear 2570135093 H90.11 Health Concerns Section Related Observation LastModified by Organization Detai ls LastModified Time None Recorded Concern Status LastModified by Organization Details LastModified Time None Recorded Advance Directives Directive None Recorded Payers Insurance Date Sequence Insurance Name Policy Number Policy Scanlon Covered Member ID Scanlon Member ID Guarantor Name 07/26/2024 1 [employer] [id number] Harry Rivers [id number] Criss Rivers Notes Date Note Type Note Provider Name and Address Organization Details Recorded Time 09/14/2016 text/html ROS as noted in the HPI no major flare in the interim; started on the denies cp, soa, rash or fever and all others negative CHARITY ERWIN, [address] [place], [address], [facility] 09/14/2016 11:38:50 07/22/2024 text/html ROS as noted in the HPI Criss Rivers ([id number]) visits our office for an evaluation of recurrent ear infection.Criss reports issues with recurrent ear infection for the past 6 or 7 years. She reports tear infections last 6 or 7 yearsantibitoics for the past 5 monasal sprays dont help06/10/24 CT Head ([facility]) - Sinuses clear. Recently, she remains having sinus headaches. She does not tolerate motion sickness. She does have hx of severe migraines in youthTESTING: Audiometric testing was reviewed independently and reveals normal hearing and tympanometry. ELIOT TYLER MD [address] [place], [address], [facility] 07/22/2024 17:15:01 OBGyn Episode No OBEpisode recorded.
--- OUTSIDE RECORDS SUMMARY | 2025-02-27 14:45 | XMS_ITS | Encounter Summary ---
Author Organization [facility] Address [address] [place] [address] Care Team Providers Care Transfer And Pumphouse Operator Name Role Phone Shanda Sands APRN Primary Care Provider [phone] Encounter Details Date Type Department Care Team (Latest Contact Info) Description 02/16/2025 Travel Social History Tobacco Use Types Packs/Day Years Used Date Smoking Tobacco: Every Day Cigarettes 1 30 Passive Smoke Exposure: Current Smokeless Tobacco: Never Alcohol Use Standard Drinks/Week Comments Never 0 (1 standard drink = 0.6 oz pur e alcohol) Comments Unknown Sex and Gender Information Value Date Recorded Sex Assigned at Not on file Legal Sex Female 9:13 AM EDT Gender Identity Not on file Sexual Orientation Not on file Travel History Travel Start Travel End [place] 02/02/2025 02/06/2025 documented as of this encounter Plan of Treatment Upcoming Encounters Date Type Department Care Team (Late st Contact Info) Description 03/03/2025 2:00 PM EST Office Visit [facility] [address] [place] [address] Mica Brown PA-C [address] [place] [address] documented as of this encounter Visit Diagnoses Not on filedocumented in this encounter Care Teams Transfer And Pumphouse Operator Relationship Specialty Start Date End Date Shanda Sands APRN [address] [place] [address] [address] [place] [address] PCP - General Internal Medicine 01/29/25 documented as of this encounter
--- OUTSIDE RECORDS SUMMARY | 2025-02-27 14:46 | XMS_ITS | Clinical Summary ---
Author Organization [facility] Address [address] [place] [address] Phone Care Team Providers Care Motorboat Mechanic Name Role Phone Sandie Sands Primary Care Provider [phone] Jese BUSH, Simon Melendez Unavailable [phone] Reason for Visit and Chief Complaint The Chief Complaint is: low back pain Problems Includes: Problems addressed during this encounter and other active Problems Current Visit Onset Date Resolved Date Provider Conditio n Status Lower Back Pain 12/13/2023 Simon Sawant MD Act ting Last Documented On 4 11:09AM ; [facility] Past Visits Onset Date Resolved Date Provider Condition Status Right Ankle Joint Pain 12/06/2017 Simon Sawant MD Active Last Documented On 8 8:36AM ; [facility], [facility] Plan of Treatment Patient was seen by myself and Dr. Jese Gallagher PA-C. Patient will follow up 6 weeks after we try a right L4-L5 L5-S1 medial branch block there is no surgery recommended for her. He was given a brochure some exercises to work on. - Last Documented On 12/13/2023 12:04PM ; [facility], [facility] Instructions to patient Intervention and counseling on cessation of tobacco use Last Documented On 4 11:19AM ; [facility], [facility] Lose weight Last Documented On 4 11:19AM ; [facility], [facility] Assessments Includes: Assessments from this encounter Findings - Overweight - Last Documented On 12/13/2023 12:04PM ; [facility], [facility] L4-L5 L5-S1 facet arthritis - Last Documented On 12/13/2023 12:04PM ; [facility], [facility] Instructions Includes: Instructions from this encounter Instructions to patient Intervention and counseling on cessation of tobacco use Last Documented On 4 11:19AM ; [facility], [facility] Lose weight Last Documented On 4 11:19AM ; [facility], [facility] Medical Equipment - Implanted Devices Includes: Current Devices No Medical Equipment Recorded Medications Includes: Medications discussed during this encounter and other current Medications Discontinued / Stopped on this date MARCIA SANDS on 10/10/2023 DULoxetine HCl 30 MG Oral Ca psule Delayed Release Particles Provider: MARCIA SANDS Diagnosis: Last Documented On 4 11:26AM By Yany Peterson ; [facility], [facility] Primidone 50MG Oral Tablet Provider: Diagnosis: Last Documented On 4 11:20AM By Tita Euceda ; [facility], [facility] Cyclobenzaprine HCl Powder Provider: Diagnosis: Last Documented On 4 11:20AM By Tita Euceda ; [facility], [facility] Vitamin D3 [id number] Oral Capsule Provide r: Diagnosis: Last Documented On 4 11:20AM By Tita Euceda ; [facility], [facility] Gabapentin 100MG Oral Capsule Provider: Diagnosis: Last Documented On 4 11:20AM By Tita Euceda ; [facility], [facility] Super B-Complex Oral Capsule Provider: Diagnosis: Last Documented On 4 11:20AM By Tita Euceda ; [facility], [facility] Current Medications (continue as prescribed) Esomeprazole Magnesium 20 MG Oral Tablet Delayed Relea se 12/13/2023 Provider: Diagnosis: Last Documented On 4 11:27AM By Yany Peterson ; [facility], [facility] DULoxetine HCl 30 MG Oral Ca psule Delayed Release Particles 12/03/2023 Provider: MARCIA SANDS Diagnosis: Last Documented On 4 11:20AM By Tita Euceda ; [facility], [facility] Methocarbamol 750 MG Oral Tablet 11/20/2023 Provider : MARCIA SANDS Diagnosis: Last Documented On 4 11:20AM By Tita Euceda ; [facility], [facility] Pregabalin 50 MG Oral Capsule 11/20/2023 Provider: MARCIA SANDS Diagnosis: Last Documented On 4 11:20AM By Tita Euceda ; [facility], [facility] Celecoxib 200 MG Oral Capsule 11/20/2023 Provider: MARCIA SANDS Diagnosis: Last Documented On 4 11:20AM By Tita Euceda ; [facility], [facility] Primidone 50 MG Oral Tablet 11/17/2023 Provider: Gauri Stafford DO Diagnosis: Last Documented On 4 11:26AM By Yany Peterson ; [facility], [facility] Amitriptyline HCl 25 MG Oral Tablet 10/17/2023 Provi sony: MARCIA SANDS Diagnosis: Last Documented On 4 11:20AM By Tita Euceda ; [facility], [facility] Medications Administered Includes: Administered Medications from this encounter No Administered Medications Recorded Vital Signs Includes: Vital Signs from this encounter Vital Name 12/13/2023 11:16A Height (in) 65 Weight (lb) 181.4 Body Mass Index 30.2 Body Surface Area 1.9 Pain Level 2 Note: lc Last Documented: On 12/13/2023 11:18A M ; [facility], [facility] Results Includes: Results discussed during this encounter No Results Recorded For Specified Dates History of Present Illness Includes: History of Present Illness from this encounter HPI Criss Benoit is a 48 year old female. - Symptoms Lifting makes symptoms worse. Nothing makes symptoms better. - Allergy list reviewed - Problem list reviewed - Medication list reviewed - Previous history of new onset pain Injury is not work related or an automotive accident - Patient pain level from 1-10: 2 - Yes, previous treatment. PCP - - Review of medications documented Patient is here today with complaints of lower back pain she has had this problem for years sometimes will radiate right leg to the foot she has history of fibromyalgia as well as Guillain-Mcclusky. Over last 3 months it has gotten worse she is does not like taking pain meds with this she has tried physical therapy Tylenol chiropractic treatment. No previous back surgery. It does bother when she tries to bend backwards. No bowel or bladder issues with this. Social History Description Last Updated No recent change in diet 12/13/2023 Last Documented On 4 11:28AM ; [facility] Not exercising regularly 12/13/2023 Last Documented On 4 11:28AM ; [facility] Not using alcohol 12/13/2023 Last Documented On 4 11:28AM ; [facility] Yes, current smoker. 12/13/2023 Last Documented On 4 11:28AM ; [facility] No tobacco use 01/03/2018 Last Documented On 4 11:29AM ; [facility] Smoking status : Current everyday smoker 01/03/2018 Last Documented On 4 11:29AM ; [facility] Caffeine use 12/06/2017 Last Documented On 4 11:29AM ; [facility] Current smoker 12/06/2017 Last Documented On 4 11:29AM ; [facility] Exercising regularly 12/06/2017 Last Documented On 4 11:29AM ; [facility] No recent change in diet 12/06/2017 Last Documented On 4 11:29AM ; [facility] Not using alcohol 12/06/2017 Last Documented On 4 11:29AM ; [facility] Not using drugs 12/06/2017 Last Documented On 4 11:29AM ; [facility] Procedures and Surgical History Includes: Procedures from this encounter Procedures Code Diagnosis Performing Provider Service L ocation Service Date an X-ray was performed 53130 Last Documented On 4 11:28AM ; [facility] an MRI was performed 11/09/2023 [facility] [id number] Last Documented On 4 11:19AM ; [facility] Surgical History Last Updated History of History of Gallbladder 2023 Last Documented On 4 11:28AM ; [facility] History of hysterectomy 12/13/2023 Last Documented On 4 11:17AM ; [facility] History of Past Surgical History: 2023 Last Documented On 4 11:17AM ; [facility] Medical History Includes: Medical History addressed during this encounter Description Last Updated Fibromyalgia 12/06/2017 Last Documented On 4 11:29AM ; [facility] Arthritic joint problems 12/06/2017 Last Documented On 4 11:29AM ; [facility] Gallbladder disease 12/06/2017 Last Documented On 4 11:29AM ; [facility] History of osteoporosis 12/06/2017 Last Documented On 4 11:29AM ; [facility] Family History Includes: Family History addressed during this encounter Description Last Updated Diabetes mellitus 12/13/2023 Last Documented On 4 11:29AM ; [facility] Family history of cancer 12/13/2023 Last Documented On 4 11:29AM ; [facility] Family history of heart disease 12/13/19 24 Last Documented On 4 11:29AM ; [facility] Family history of systemic hypertension 12/13/2023 Last Documented On 4 11:29AM ; [facility] Family history of thromboembolic disease 12/13/2023 Last Documented On 4 11:29AM ; [facility] Stroke / Seizures 12/13/2023 Last Documented On 4 11:29AM ; [facility] Maternal grandmother's history of diabet es mellitus 12/13/2023 Last Documented On 4 11:17AM ; [facility] Maternal grandmother's history of family history of cancer 12/13/2023 Last Documented On 4 11:17AM ; [facility] Maternal history of systemic hypertensio n 12/13/2023 Last Documented On 4 11:17AM ; [facility] Paternal grandfather's history of family history of cancer 12/13/2023 Last Documented On 4 11:17AM ; [facility] Paternal grandfather's history of family history of heart disease 12/13/2023 Last Documented On 4 11:17AM ; [facility] Paternal grandfather's history of Stroke / Seizures 12/13/2023 Last Documented On 4 11:17AM ; [facility] Paternal grandmother's history of Stroke / Seizures 12/13/2023 Last Documented On 4 11:17AM ; [facility] Paternal history of systemic hypertensio n 12/13/2023 Last Documented On 4 11:17AM ; [facility] Paternal history of thromboembolic disea se 12/13/2023 Last Documented On 4 11:17AM ; [facility] Review of Systems Includes: Review of Systems from this encounter Systemic: No symptoms, not feeling tired, no recent weight loss, and no recent weight gain. Head: Headache and sinus pain. Eyes: No vision problems, no Cataracts, no Glasses/Contacts, and no Glaucoma. Otolaryngeal: Otolaryngeal symptoms Ear infection. No hearing loss and no tinnitus. Cardiovascular: No chest pain or discomfort, no palpitations, no Hypertension, and no High Cholesterol. Pulmonary: No daytime asthma symptoms and no chronic cough. No wheezing. Gastrointestinal: No heartburn and no abdominal pain. No Indigestion, no Peptic Ulcer, no GI Stomach Bleed, and no Ulcers. Acid Reflux. Endocrine: No hot flashes. Muscle weakness. No Diabetes, no Hypothyroid, and no Hyperthyroid. Hematologic: No easy bleeding. A tendency for easy bruising. No Anemia. Musculoskeletal: Arthritis and lower back pain. No soft tissue swelling. Pain localized to one or more joints. Neurological: No dizziness, no convulsions, and no numbness. Psychological: Anxiety. No emotional lability, no depression, and no insomnia. Not crying for no reason. Skin: No dry skin. No Ulcers, no Scars, and no rash. Allergic and Immunologic: Complaint of seasonal allergic reaction. Mental Status Includes: Mental Status from this encounter Description Anxiety Functional Status Includes: Functional Status from this encounter No Functional Status Recorded Physical Exam Includes: Physical Exam from this encounter Allergies Includes: Active Allergies Substance Type Reaction Onset Date Resolved Date Statu s Zithromax Z-Maikel Allergy Skin Rashes / Er uption of skin, Hives / Urticaria 12/06/2017 Active Last Documented On 4 11:27AM ; [facility] pain med sensitive Allergy 12/13/2023 Active Last Documented On 4 11:25AM ; [facility] Encounters Encounter Provider Location Date Check-In Time Check-Out Time Diagnosis Physician Specified Simon Sawant MD [facility] 12/13/19 24 10:27AM 11:38AM Overweight Insurance Includes: Active Insurance Policies Plan Name Member ID Group # Subscriber Relationship Effect ting Dates 1 - [facility] [id number] Harry Benoit 04/30/2017 - Unknown Clinical Notes Includes: Clinical Notes from this encounter No Clinical Notes Recorded
--- OUTSIDE RECORDS SUMMARY | 2025-02-27 14:46 | XMS_ITS | Clinical Summary ---
Author Organization [facility] Address [address] [place] [address] Phone Care Team Providers Care Lever Operator Name Role Phone Sands, Sandie Primary Care Provider [phone] Jese BUSH, Simon Melendez Unavailable [phone] Reason for Visit and Chief Complaint The Chief Complaint is: Right ankle pain Problems Includes: Problems addressed during this encounter and other active Problems Current Visit Onset Date Resolved Date Provider Jennifer pereyra Status Lower Back Pain 12/13/2023 Simon Sawant MD Act ting Last Documented On 4 11:09AM ; [facility] Right Ankle Joint Pain 12/06/2017 Simon Sawant MD Active Last Documented On 8 8:36AM ; [facility] Plan of Treatment Patient was seen by myself Kunal Gallagher PA-C and Dr. Sawant we will have her stop PT now tried an injection for the right ankle today over the anterior talofibular ligament. Patient was given an injection for the right ankle cc of Celestone cc lidocaine over the right ATF. She tolerated it well. - Last Documented On 02/11/2018 10:18AM ; [facility] Assessments Includes: Assessments from this encounter Findings Right ankle sprain - Last Documented On 02/11/2018 10:18AM ; [facility] Medical Equipment - Implanted Devices Includes: Current Devices No Medical Equipment Recorded Medications Includes: Medications discussed during this encounter and other current Medications Current Medications (continue as prescribed) Esomeprazole Magnesium 20 MG Oral Tablet Delayed Relea se 12/13/2023 Provider: Diagnosis: Last Documented On 4 11:27AM By Yany Peterson ; [facility] DULoxetine HCl 30 MG Oral Ca psule Delayed Release Particles 12/03/2023 Provider: MARCIA SANDS Diagnosis: Last Documented On 4 11:20AM By Tita Euceda ; [facility] Methocarbamol 750 MG Oral Tablet 11/20/2023 Provider : MARCIA SANDS Diagnosis: Last Documented On 4 11:20AM By Tita Euceda ; [facility] Pregabalin 50 MG Oral Capsule 11/20/2023 Provider: MARCIA SANDS Diagnosis: Last Documented On 4 11:20AM By Tita Euceda ; [facility] Celecoxib 200 MG Oral Capsule 11/20/2023 Provider: MARCIA SANDS Diagnosis: Last Documented On 4 11:20AM By Tita Euceda ; [facility] Primidone 50 MG Oral Tablet 11/17/2023 Provider: Gauri Stafford DO Diagnosis: Last Documented On 4 11:26AM By Yany Peterson ; [facility] Amitriptyline HCl 25 MG Oral Tablet 10/17/2023 Provi sony: MARCIA JOHN PAUL Diagnosis: Last Documented On 4 11:20AM By Tita Euceda ; [facility] Medications Administered Includes: Administered Medications from this encounter No Administered Medications Recorded Vital Signs Includes: Vital Signs from this encounter Vital Name 12/06/2017 08:39A Height (in) 65 Weight (lb) 182 Body Mass Index (kg/m2) 30.3 Body Surface Area (m2) 1.9 Note: TL Last Documented: On 12/06/2017 8:39AM ; [facility] Results Includes: Results discussed during this encounter No Results Recorded For Specified Dates History of Present Illness Includes: History of Present Illness from this encounter WENDY Benoit is a 42 year old female. - Pain is constant (100% of the time). Previous Treatment. Please rate pain on scale of 1 - 10: 1. Medications used for this condition: OTC. Patient injured her right ankle in September when she was stepping into the shower and felt a pop with the ankle in rolled her ankle. she still has pain with right ankle she has pain over the anterior talofibular ligament. She's been doing physical therapy. Social History Description Last Updated Caffeine use 12/06/2017 Last Documented On 8 10:18AM ; [facility] Current smoker 12/06/2017 Last Documented On 8 10:18AM ; [facility], [facility] Exercising regularly 12/06/2017 Last Documented On 8 10:18AM ; [facility], [facility] No recent change in diet 12/06/2017 Last Documented On 8 10:18AM ; [facility], [facility] Not using alcohol 12/06/2017 Last Documented On 8 10:18AM ; [facility], [facility] Not using drugs 12/06/2017 Last Documented On 8 10:18AM ; [facility] Smoking Status Unknown Procedures and Surgical History Includes: Procedures from this encounter Procedures Code Diagnosis Performing Provider Service L ocation Service Date history of an X-ray was performed 64890 Last Documented On 8 8:38AM ; [facility] history of a CT scan was performed 95323 Last Documented On 8 8:38AM ; [facility], [facility] history of an MRI was performed [id number] Last Documented On 8 8:38AM ; [facility], [facility] Surgical History Last Updated History of hysterectomy 12/06/2017 Last Documented On 8 10:18AM ; [facility], [facility] Medical History Includes: Medical History addressed during this encounter Description Last Updated Fibromyalgia 12/06/2017 Last Documented On 8 10:18AM ; [facility], [facility] Arthritic joint problems 12/06/2017 Last Documented On 8 10:18AM ; [facility] Gallbladder disease 12/06/2017 Last Documented On 8 10:18AM ; [facility] History of osteoporosis 12/06/2017 Last Documented On 8 10:18AM ; [facility], [facility] Family History Includes: Family History addressed during this encounter Description Last Updated No significant family history 12/06/2017 Last Documented On 8 10:18AM ; [facility] Review of Systems Includes: Review of Systems from this encounter Systemic: Not feeling tired (fatigue), no recent weight loss, and no recent weight gain. Edema. Head: No headache. Sinus pain. No sinus pain. Eyes: No vision problems, no vision problems, and no glaucomatous visual field defect. Otolaryngeal: No hearing loss, no hearing loss, and no tinnitus. No nasal symptoms. Cardiovascular: No chest pain or discomfort, no chest pain or discomfort, and no palpitations. Pulmonary: No daytime asthma symptoms and no cough. Chronic cough. No wheezing. Gastrointestinal: No heartburn, no heartburn, and no abdominal pain. Endocrine: No hot [...] Active Last Documented On 4 11:27AM ; [facility] pain med sensitive Allergy 12/13/2023 Active Last Documented On 4 11:25AM ; [facility] Encounters Encounter Provider Location Date Check-In Time Check-Out Time Diagnosis Physician Specified Simon Sawant MD [facility] 12/07/19 18 8:34AM 9:14AM Insurance Includes: Active Insurance Policies Plan Name Member ID Group # Subscriber Relationship Effect ting Dates 1 - [facility] [id number] Harry Benoit W 04/30/2017 - Unknown Clinical Notes Includes: Clinical Notes from this encounter No Clinical Notes Recorded
--- OUTSIDE RECORDS SUMMARY | 2025-02-27 14:46 | XMS_ITS | Clinical Summary ---
Author Organization [facility] Address [address] [place] [address] Phone Care Team Providers Care Bagging Machine Operator Name Role Phone Sandie Sands Primary Care Provider [phone] Jese BUSH, Simon Melendez Unavailable [phone] Reason for Visit and Chief Complaint The Chief Complaint is: Right ankle pain Problems Includes: Problems addressed during this encounter and other active Problems Current Visit Onset Date Resolved Date Provider Conditio n Status Lower Back Pain 12/13/2023 Simon Sawant MD Act ting Last Documented On 4 11:09AM ; [facility] Past Visits Onset Date Resolved Date Provider Condition Status Right Ankle Joint Pain 12/06/2017 Simon Sawant MD Active Last Documented On 8 8:36AM ; [facility] Plan of Treatment Right Ankle injection: The skin was prepped with alcohol and/or Betadine swab. The area of injection was sprayed with ethyl chloride spray and a 22-gauge needle used. Injection was performed which contained 1 mL of betamethasone, 1 mL of lidocaine. Band-Aid was applied after cleansing the area with alcohol swab once again. Follow-up in [address] Sawant - Last Documented On 01/07/2018 3:04PM ; [facility] Assessments Includes: Assessments from this encounter Findings Ankle sprain - Last Documented On 01/07/2018 3:04PM ; [facility] Medical Equipment - Implanted Devices Includes: Current Devices No Medical Equipment Recorded Medications Includes: Medications discussed during this encounter and other current Medications Current Medications (continue as prescribed) Esomeprazole Magnesium 20 MG Oral Tablet Delayed Relea se 12/13/2023 Provider: Diagnosis: Last Documented On 4 11:27AM By Yany Peterson ; [facility] DULoxetine HCl 30 MG Oral Ca psule Delayed Release Particles 12/03/2023 Provider: MARCIA SANDS Diagnosis: Last Documented On 4 11:20AM By Tita Euceda ; [facility] Methocarbamol 750 MG Oral Tablet 11/20/2023 Provider : MARCIA SANDS Diagnosis: Last Documented On 4 11:20AM By Tita Euceda ; [facility] Pregabalin 50 MG Oral Capsule 11/20/2023 Provider: MARCIA SANDS Diagnosis: Last Documented On 4 11:20AM By Tita Euceda ; [facility] Celecoxib 200 MG Oral Capsule 11/20/2023 Provider: MARCIA SANDS Diagnosis: Last Documented On 4 11:20AM By Tita Euceda ; [facility] Primidone 50 MG Oral Tablet 11/17/2023 Provider: Gauri Stafford DO Diagnosis: Last Documented On 4 11:26AM By Yany Peterson ; [facility] Amitriptyline HCl 25 MG Oral Tablet 10/17/2023 Provi sony: MARCIA SANDS Diagnosis: Last Documented On 4 11:20AM By Tita Euceda ; [facility] Medications Administered Includes: Administered Medications from this encounter No Administered Medications Recorded Vital Signs Includes: Vital Signs from this encounter Vital Name 01/03/2018 08:53A Blood Pressure Sitting (mmHg) 118/77 Pulse Rate-Sitting (bpm) 102 Height (in) 65 Weight (lb) 182 Body Mass Index (kg/m2) 30.3 Body Surface Area (m2) 1.9 Note: lms Last Documented: On 01/03/2018 8:53AM ; [facility] Results Includes: Results discussed during this encounter No Results Recorded For Specified Dates History of Present Illness Includes: History of Present Illness from this encounter WENDY Benoit is a 42 year old female. - Medication list reviewed. - Pain is constant (100% of the time). Previous Treatment. Please rate pain on scale of 1 - 10: 1. Medications used for this condition: OTC. Social History Description Last Updated No tobacco use 01/03/2018 Last Documented On 8 3:04PM ; [facility] Smoking status : Current everyday smoker 01/03/2018 Last Documented On 8 3:04PM ; [facility] Caffeine use 12/06/2017 Last Documented On 8 8:53AM ; [facility] Current smoker 12/06/2017 Last Documented On 8 8:53AM ; [facility] Exercising regularly 12/06/2017 Last Documented On 8 8:53AM ; [facility] No recent change in diet 12/06/2017 Last Documented On 8 8:53AM ; [facility] Not using alcohol 12/06/2017 Last Documented On 8 8:53AM ; [facility] Not using drugs 12/06/2017 Last Documented On 8 8:53AM ; [facility] Procedures and Surgical History Includes: Procedures from this encounter Procedures Code Diagnosis Performing Provider Service L ocation Service Date Clinical summary provided to patient Last Documented On 8 8:54AM ; [facility] history of an X-ray was performed 61970 Last Documented On 8 8:53AM ; [facility] history of a CT scan was performed 16462 Last Documented On 8 8:53AM ; [facility] history of an MRI was performed 63047 Last Documented On 8 8:53AM ; [facility] Surgical History Last Updated History of hysterectomy 12/06/2017 Last Documented On 8 8:53AM ; [facility] Medical History Includes: Medical History addressed during this encounter Description Last Updated Fibromyalgia 12/06/2017 Last Documented On 8 8:53AM ; [facility] Arthritic joint problems 12/06/2017 Last Documented On 8 8:53AM ; [facility] Gallbladder disease 12/06/2017 Last Documented On 8 8:53AM ; [facility] History of osteoporosis 12/06/2017 Last Documented On 8 8:53AM ; [facility] Family History Includes: Family History addressed during this encounter Description Last Updated No significant family history 12/06/2017 Last Documented On 8 8:53AM ; [facility] Review of Systems Includes: Review of Systems [...] Active Last Documented On 4 11:27AM ; [facility] pain med sensitive Allergy 12/13/2023 Active Last Documented On 4 11:25AM ; [facility] Encounters Encounter Provider Location Date Check-In Time Check- Out Time Diagnosis Follow Up [facility] Saw[facility] 8 8:40AM 9:46AM Insurance Includes: Active Insurance Policies Plan Name Member ID Group # Subscriber Relationship Effect ting Dates 1 - [employer] [place] [id number] Harry Benoit W 04/30/2017 - Unknown Clinical Notes Includes: Clinical Notes from this encounter No Clinical Notes Recorded
--- OUTSIDE RECORDS SUMMARY | 2025-02-27 14:46 | XMS_ITS ---
Author Organization [facility] Address [address] [place] [address] Phone Care Team Providers Care Turbine Mechanic Name Role Phone Sandie Sands Primary Care Provider [phone] Jese BUSH, Simon Melendez Unavailable [phone] Problems Includes: Active, inactive, and resolved Problems All Visits Onset Date Resolved Date Provider Condition S tatus Lower Back Pain 12/13/2023 Simon Sawant MD Act ting Last Documented On 4 11:09AM ; [facility], [facility] Right Ankle Joint Pain 12/06/2017 Simon Sawant MD Active Last Documented On 8 8:36AM ; [facility], [facility] Plan of Treatment Instructions to patient Intervention and counseling on cessation of tobacco use Last Documented On 4 11:19AM ; [facility] Lose weight Last Documented On 4 11:19AM ; [facility] Assessments Includes: Assessments for all patient encounters Findings Encounter Date Overweight Physician Specified with Simon Sawant MD 12/13/2023 Last Documented On 4 12:04PM ; [facility] Instructions Includes: Instructions for all patient encounters Instructions to patient Intervention and counseling on cessation of tobacco use Last Documented On 4 11:19AM ; [facility] Lose weight Last Documented On 4 11:19AM ; [facility] Medical Equipment - Implanted Devices Includes: Current and historical Devices No Medical Equipment Recorded Medications Includes: Current and historical Medications Current Medications (continue as prescribed) Esomeprazole Magnesium 20 MG Oral Tablet Delayed Relea se 12/13/2023 Provider: Diagnosis: Last Documented On 4 11:27AM By Yany Peterson ; [facility] DULoxetine HCl 30 MG Oral Ca psule Delayed Release Particles 12/03/2023 Provider: MARCIA SANDS Diagnosis: Last Documented On 4 11:20AM By Tita Euceda ; [facility] Methocarbamol 750 MG Oral Tablet 11/20/2023 Provider : MARCIA SANDS Diagnosis: Last Documented On 4 11:20AM By Tita Euceda ; [facility] Pregabalin 50 MG Oral Capsule 11/20/2023 Provider: MARCIA SANDS Diagnosis: Last Documented On 4 11:20AM By Tita Euceda ; [facility] Celecoxib 200 MG Oral Capsule 11/20/2023 Provider: MARCIA SANDS Diagnosis: Last Documented On 4 11:20AM By Tita Euceda ; [facility] Primidone 50 MG Oral Tablet 11/17/2023 Provider: Gauri Stafford DO Diagnosis: Last Documented On 4 11:26AM By Yany Peterson ; [facility] Amitriptyline HCl 25 MG Oral Tablet 10/17/2023 Provi sony: MARCIA SANDS Diagnosis: Last Documented On 4 11:20AM By Tita Euceda ; [facility] Past Medications on file DULoxetine HCl 30 MG Oral Ca psule Delayed Release Particles 10/10/2023 - 12/13/2023 Provider: MARCIA VASQUEZ Diagnosis: Last Documented On 4 11:26AM By Yany Peterson ; [facility] Primidone 50MG Oral Tablet 12/06/2017 - 12/13/2023 Pro vider: Diagnosis: Last Documented On 4 11:20AM By Tita Euceda ; [facility] Cyclobenzaprine HCl Powder 12/06/2017 - 12/13/2023 Pro vider: Diagnosis: Last Documented On 4 11:20AM By Tita Euceda ; [facility] Vitamin D3 [id number] Oral Capsule 12/06/2017 - 024 Provider: Diagnosis: Last Documented On 4 11:20AM By Tita Euceda ; [facility] Gabapentin 100MG Oral Capsule 12/06/2017 - 12/13/2023 Provider: Diagnosis: Last Documented On 4 11:20AM By Tita Euceda ; [facility] Super B-Complex Oral Capsule 12/06/2017 - 12/13/2023 P peñader: Diagnosis: Last Documented On 4 11:20AM By Tita Euceda ; [facility] Medications Administered Includes: Administered Medications in patient's chart No Administered Medications Recorded Results Includes: Results from 02/28/2024 through 02/27/2025 No Results Recorded For Specified Dates History of Present Illness History of Present Illness not supported for this document type No History of Present Illness Recorded Social History Description Last Updated No tobacco use 01/03/2018 Last Documented On 8 3:04PM ; [facility] Smoking status : Current everyday smoker 01/03/2018 Last Documented On 8 3:04PM ; [facility] Caffeine use 12/06/2017 Last Documented On 8 10:18AM ; [facility] Current smoker 12/06/2017 Last Documented On 8 10:18AM ; [facility] Exercising regularly 12/06/2017 Last Documented On 8 10:18AM ; [facility] No recent change in diet 12/06/2017 Last Documented On 8 10:18AM ; [facility] Not using alcohol 12/06/2017 Last Documented On 8 10:18AM ; [facility] Not using drugs 12/06/2017 Last Documented On 8 10:18AM ; [facility] Procedures and Surgical History Surgical History Last Updated History of hysterectomy 12/06/2017 Last Documented On 8 10:18AM ; [facility] Medical History Includes: Medical History in patient's chart Description Last Updated Fibromyalgia 12/06/2017 Last Documented On 8 10:18AM ; [facility] Arthritic joint problems 12/06/2017 Last Documented On 8 10:18AM ; [facility] Gallbladder disease 12/06/2017 Last Documented On 8 10:18AM ; [facility] History of osteoporosis 12/06/2017 Last Documented On 8 10:18AM ; [facility] Family History Includes: Family History in patient's chart Description Last Updated No significant family history 12/06/2017 Last Documented On 8 10:18AM ; [facility] Review of Systems Review of Systems not supported for this document type No Review of Systems Recorded Mental Status Description Anxiety Functional Status No Functional Status Recorded Physical Exam Physical Exam not supported for this document type No Physical Exam Recorded Allergies Includes: Active, inactive, and resolved Allergies Substance Type Reaction Onset Date Resolved Date Statu s Zithromax Z-Maikel Allergy Skin Rashes / Er uption of skin, Hives / Urticaria 12/06/2017 Active Last Documented On 4 11:27AM ; [facility] pain med sensitive Allergy 12/13/2023 Active Last Documented On 4 11:25AM ; [facility] Insurance Includes: Active Insurance Policies Plan Name Member ID Group # Subscriber Relationship Effect ting Dates 1 - [facility] [id number] Harry Benoit W 04/30/2017 - Unknown Clinical Notes Includes: Signed Clinical Notes starting from 04/13/2022 No Clinical Notes Recorded
--- OUTSIDE RECORDS SUMMARY | 2025-02-27 14:46 | XMS_ITS ---
Author Organization Unknown ENCOUNTERS Encounter Performer Location Date Diagnosis Diagnosis Status Pre Admit [facility] [address] [facility] [address] [place] [address] [id number] Emergency [facility] [address] [facility] [address] [place] [address] [id number] [place] Emergency [facility] [address] [facility] [address] [place] [address] [id number] [place] Pre Admit [facility] [address] [facility] [address] [place] [address] [id number] Emergency [facility] [address] [facility] [address] [place] [address] [id number] [place] Emergency [facility] [address] [facility] [address] [place] [address] [id number] [place] Emergency [facility] [address] [facility] [address] [place] [address] [id number] [place] Emergency [facility] [address] [facility] [address] [place] [address] [id number] D[place]LENE *Note: Encounters from your own facility or health system may be excluded. Allergies, Adverse Reactions, Alerts Allergen Type Severity Identification Date azithromycin drug allergy 2 [id number] Medications Name Date Quantity Days Supplied GPI Number
== END 2025-02-27 23:59 | disposition home or self-care (01) ==
LOC: RAD 14:43
PROVIDERS: PCP Nurse Practitioner Family; Visit Provider Physician Assistant
DX: R29.898 Other symptoms and signs involving the musculoskeletal system (principal)
CPT/HCPCS: 72146

== ENCOUNTER 2025-03-06 14:59 | Outpatient (CLI) | payer BC, MEDICARE, SELFPAY ==
--- OUTSIDE RECORDS SUMMARY | 2025-02-16 12:00 | XMS_ITS | Encounter Summary ---
Author Organization [facility] Address [address] [place] [address] Care Team Providers Care Transplant Immunologist Name Role Phone Shanda Sands APRN Primary Care Provider [phone] Reason for Referral * MRI/CAT/PET Scan (Routine) - Closed Specialty Diagnoses / Procedures Referred By Faith t Referred To Contact Diagnoses Complaints of leg weakness Procedures MRI Thoracic Spine Without Contrast Mica Brown PA-C [address] [facility] [address] [place] [id number] Phone: tel: fax: [facility] - OUTPT [facility]ICAL [facility] [address] [place] [id number] Phone: tel: fax: Referral ID Status Reason Start Date Expiration Date Visits Re quested Visits Authorized [id number] Closed 02/16/2025 05/18/2026 1 1 Reason for Visit * Reason Comments Low back & bilateral leg pain * Consultation (Routine) - Pending Review Specialty Diagnoses / Procedures Referred By Contrangel t Referred To Contact Neurosurgery Diagnoses Other intervertebral disc degeneration, lumbar region without mention of lumbar back pain or lower extremity pain Abnormal response to nerve stimulation, unspecified Anesthesia of skin Paresthesia of skin Shanda Sands APRN [address] [address] Phone: tel: fax: [facility] [address] [place] [address] Phone: tel: fax: Referral ID Status Reason Start Date Expiration Date V isits Requested Visits Authorized [id number] Pending Review 01/29/2025 04/30/2026 2 2 Encounter Details Date Type Department Care Team (Late st Contact Info) Description 02/16/2025 1:00 PM EDT Office Visit [facility] [address] [facility] [address] [place] [address] Mica Brown PA-C [address] [facility] [address] [place], [place] [id number] Complaints of leg weakness (Primary Dx) Social History Tobacco Use Types Packs/Day Years Used Date Smoking Tobacco: Every Day Cigarettes 1 30 Passive Smoke Exposure: Current Smokeless Tobacco: Never Tobacco Cessation:Ready to Q uit: No; Counseling Given: Yes Alcohol Use Standard Drinks/Week Comments Never 0 (1 standard drink = 0.6 oz pur e alcohol) Comments Unknown Sex and Gender Information Value Date Recorded Sex Assigned at Not on file Legal Sex Female 9:13 AM EDT Gender Identity Not on file Sexual Orientation Not on file Travel History Travel Start Travel End [place] 02/02/2025 02/06/2025 documented as of this encounter Last Filed Vital Signs Vital Sign Reading Time Taken Comments Blood Pressure - - Pulse - - Temperature 36.4 C (97.6 F) 02/16/2025 12:37 PM EDT Respiratory Rate 18 02/16/2025 12:37 PM EDT Oxygen Saturation - - Inhaled Oxygen Concentration - - Weight 89.8 kg (198 lb) 02/16/2025 12:37 PM EDT Height 165.1 cm (5' 5 ) 02/16/2025 12:37 PM EDT Body Mass Index 32.95 02/16/2025 12:37 PM EDT documented in this encounter Progress Notes * Mica Brown PA-C - 02/16/2025 1:00 PM EDT Name: Criss Benoit : 1975 Primary Care Provider: Shanda Sands APRN Chief Complaint Low back & bilateral leg pain History of Present Illness: Criss Benoit is a 49 y.o. 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 She states she has had frequent falls as her right leg gives out from underneath her. She also reports numbness and tingling in the similar distribution. Shestates over the last year, she has had some dribbling episodes though denies any full bladder loss or overt incontinence. She has tried physical therapy in the past as well as injections. She states the injections helped for a little bit however did not give her any lasting relief. She is set to have a spinal tap in the near future to rule out autoimmune issues. She is also set to see neurology in March. She brings EMG review. PMHX Allergies: Allergies[1] Medications Current Medications[2] Past Medical History: Past Medical History: Diagnosis Date Arthritis Cervical disc disorder Guillain-Dennison 1990 Headache History of transfusion Lumbosacral disc disease Peripheral neuropathy Past Surgical History: History reviewed. No pertinent surgical history. Social Hx: Social History[3] Family Hx: Family History Problem Relation Age of Onset Hypertension Mother Arthritis Mother Hypertension Father Arthritis Father Review of Systems: Review of Systems Constitutional: Negative for activity change, appetite change, chills, diaphoresis, fatigue, fever and unexpected weight change. HENT: Negative for congestion, dental problem, drooling, ear discharge, ear pain, facial swelling, hearing loss, mouth sores, nosebleeds, postnasal drip, rhinorrhea, sinus pressure, sneezing, sore throat, tinnitus, trouble swallowing and voice change. Eyes: Negative for photophobia, pain, discharge, redness, itching and visual disturbance. Respiratory: Negative for apnea, cough, choking, chest tightness, shortness of breath, wheezing andstridor. Cardiovascular: Negative for chest pain, palpitations and leg swelling. Gastrointestinal: Negative for abdominal distention, abdominal pain, anal bleeding, blood in stool,constipation, diarrhea, nausea, rectal pain and vomiting. Endocrine: Negative for cold intolerance, heat intolerance, polydipsia, polyphagia and polyuria. Genitourinary: Negative for decreased urine volume, difficulty urinating, dysuria, enuresis, flank pain, frequency, genital sores, hematuria and urgency. Musculoskeletal: Positive for back pain. Negative for arthralgias, gait problem, joint swelling, myalgias, neck pain and neck stiffness. Skin: Negative for color change, pallor, rash and wound. Allergic/Immunologic: Negative for environmental allergies, food allergies and immunocompromised state. Neurological: Negative for dizziness, tremors, seizures, syncope, facial asymmetry, speech difficulty, weakness, light-headedness, numbness and headaches. Hematological: Negative for adenopathy. Does not bruise/bleed easily. Psychiatric/Behavioral: Negative for agitation, behavioral problems, confusion, decreased concentration, dysphoric mood, hallucinations, self-injury, sleep disturbance and suicidal ideas. The patientis not nervous/anxious and is not hyperactive. All other systems reviewed and are negative. Vital Signs: Temp 97.6 ??F (36.4 ??C) (Infrared) Resp 18 Ht 165.1 cm (65 ) Wt 89.8 kg (198 lb) BMI 32.95 kg/m?? Physical Exam Awake, alert and oriented x 3 Speech f/c Pupils 3 mm rx bilaterally EOM intact bilaterally Face symmetric bilaterally 5/5 in all 4 ext Jacobs is negative bilaterally. Clonus is negative bilaterally. Social History Tobacco Use Smoking status: Every Day Packs/day: 1.00 Years: 1 pack/day for 30.0 years (30.0 ttl pk-yrs) Types: Cigarettes Passive exposure: Current Smokeless tobacco: Never Tobacco Use: High Risk (02/16/2025) Patient History Smoking Tobacco Use: Every Day Smokeless Tobacco Use: Never Passive Exposure: Current STEADI Fall Risk Assessment has not been completed. Diagnostic Studies: (All imaging is independently reviewed unless stated otherwise.) MRI lumbar spine shows degenerative disc disease at multiple levels though no high-grade central canal neuroforaminal narrowing Assessment/Plan Diagnoses and all orders for this visit: 1. Complaints of leg weakness (Primary) - MRI Thoracic Spine Without Contrast; Future Other orders - MRI Outside Films; Future This is a 49-year-old female who presents for evaluation regarding right low back pain with pain radiating bilaterally down her legs, worse on the right. She feels that her right leg will give out from underneath her without notice. Neurologically, she has full strength in bilateral upper and lowerextremities with no long track signs. MRI lumbar spine shows no high-grade central canal neuroforaminal narrowing. EMG study consistent with a chronic or longstanding polyneuropathy. She has tried physical therapy as well as injections. Given her EMG study and subjective weakness of the right leg, I have ordered MRI thoracic spine. She will follow-up in the office after this is completed. She is set to see neurology in March and I recommend she keep that appointment. She will call the officewith any new or worsening issues. Any copied data from previous notes included in the (1) HPI, (2) PE, (3) MDM and/or Assessment and Plan has been reviewed and accurate as of 02/16/25. Mica Brown PA-C 02/16/25 I spent at least 30 minutes caring for Criss Benoit on 02/16/25. This time includes activities preparing for the visit, reviewing test, reviewing history and performing an appropriate examination. Discussing with the patient and reviewing and independently interpreting the diagnostic studies,communicating that information to the patient along with discussing care coordination and referralsif needed and documenting information in the medical records. [1] Allergies Allergen Reactions Azithromycin Hives [2] Current Outpatient Medications: DULoxetine (CYMBALTA) 60 MG capsule, TAKE 1 CAPSULE BY MOUTH TWICE DAILY FOR DEPRESSION, Disp: , Rfl: promethazine (PHENERGAN) 25 MG tablet, Take 1 tablet by mouth Every 6 (Six) Hours As Needed for Nausea or Vomiting., Disp: , Rfl: rizatriptan PATTERNMAKER HELPER (MAXALT-PATTERNMAKER HELPER) 10 MG disintegrating tablet, DISSOLVE 1 TABLET IN MOUTH ONCE DAILY NEEDED MAX 8 TABLETS PER MONTH, Disp: , Rfl: CeleBREX 200 MG capsule, , Disp: , Rfl: furosemide (LASIX) 20 MG tablet, , Disp: , Rfl: levocetirizine (XYZAL) 5 MG tablet, , Disp: , Rfl: methocarbamol (ROBAXIN) 750 MG tablet, , Disp: , Rfl: pregabalin (LYRICA) 100 MG capsule, , Disp: , Rfl: primidone (MYSOLINE) 50 MG tablet, , Disp: , Rfl: [3] Social History Tobacco Use Smoking status: Every Day Current packs/day: 1.00 Average packs/day: 1 pack/day for 30.0 years (30.0 ttl pk-yrs) Types: Cigarettes Passive exposure: Current Smokeless tobacco: Never Vaping Use Vaping status: Never Used Substance Use Topics Alcohol use: Never Drug use: Never documented in this encounter Plan of Treatment Scheduled Orders Name Type Priority Associated Diagnoses Orde r Schedule MRI Thoracic Spine Without Contrast Imaging Routine Complaints of leg weakness Expected: 02/17/2025, Expires: 05/19/2026 documented as of this encounter Results * MRI Outside Films (12/30/2024 12:00 AM EDT) Narrative SYSTEMGENERATED, DOCUMENTATION - 02/16/2025 12:42 PM EDT This procedure was auto-finalized with no dictation required. us Mica Brown PA-C IMG MRI ORDERABLES Final Resul t documented in this encounter Visit Diagnoses Diagnosis Complaints of leg weakness- Primary documented in this encounter Care Teams Transplant Immunologist Relationship Specialty Start Date End Date Shanda Sands APRN [facility] [place] [address] PCP - General Internal Medicine 01/29/25 documented as of this encounter
--- OUTSIDE RECORDS SUMMARY | 2025-03-03 14:00 | XMS_ITS | Encounter Summary ---
Author Organization [facility] Address [address] [place] [address] Care Team Providers Care Tobacco Sieve Operator Name Role Phone Shanda Sands APRN Primary Care Provider [phone] Reason for Referral * Consultation (Routine) - Pending Review Specialty Diagnoses / Procedures Referred By Contac t Referred To Contact Neurology Diagnoses Bilateral leg weakness Complaints of leg weakness Procedures FL OFFICE/OUTPATIENT NEW MODERATE MDM 45 MINUTES Mica Brown PA-C 1760 [facility] [address] [place] [address] Phone: tel: fax: NEUROLOGY CLINIC [address] [place] [address] Phone: tel: fax: Referral ID Status Reason Start Date Expiration Date Visits Requested Visits Authorized [id number] Pending Review Specialty Services Required 03/03/2025 06/02/2026 1 1 Reason for Visit * Reason Comments Extremity Weakness Back Pain Encounter Details Date Type Department Care Team (Late st Contact Info) Description 03/03/2025 2:00 PM EST Office Visit [facility] NEUROSUR[facility]ERY [address]60 [facility] [address] [place] [phone] Mica Brown PA-C 1760 [facility] [address] [place] [address] Bilateral leg weakness (Primary Dx); Complaints of [...] file Travel History Travel Start Travel End [place] 02/02/2025 02/06/2025 documented as of this encounter [...] PA-C - 03/03/2025 2:00 PM EST Name: Cirss Benoit : 1975 Primary Care Provider: Shanda [...] her any lasting relief. She is seen security shift supervisor in the past who worked her up [...] Nausea or Vomiting., Disp: , Rfl: rizatriptan STATION TENDER (MAXALT-STATION TENDER) 10 MG disintegrating tablet, DISSOLVE 1 TABLET IN MOUTH ONCE DAILY NEEDED MAX 8 TABLETS PER MONTH, Disp: , Rfl: Past Medical History: Past Medical History: Diagnosis Date Arthritis Cervical disc disorder Guillain-[place] 1990 Headache History of transfusion Lumbosacral disc [...] weakness documented in this encounter Care Teams Tobacco Sieve Operator Relationship Specialty Start Date End Date Shanda Sands APRN [address] [place] [address] [place] [address] PCP - General Internal Medicine 01/29/25 documented as of this encounter
--- OUTSIDE RECORDS SUMMARY | 2025-03-06 15:02 | XMS_ITS ---
Care Plan - [facility] Created on: March 06, 2025 Criss Benoit : 1975 Sex: Female Author Organization [facility] Address [address] [place] [address] Phone Care Team Providers Care Activities Coordinator Name Role Phone Sandie Sands Primary Care Provider [phone] Jese BUSH, Simon Melendez Unavailable [phone]
--- OUTSIDE RECORDS SUMMARY | 2025-03-06 15:02 | XMS_ITS | Encounter Summary ---
Author Organization [facility] Address [address] [place] [id number] Care Team Providers Care Manufacturing Engineer Chief Name Role Phone Shanda Sands APRN Primary Care Provider [phone] Encounter Details Date Type Department Care Team (Latest Contact Info) Description 03/03/2025 Travel Social History Tobacco Use Types Packs/Day [...] file Travel History Travel Start Travel End [place] 02/02/2025 02/06/2025 documented as of this encounter Plan of Treatment Not on file documented as of this encounter Visit Diagnoses Not on filedocumented in this encounter Care Teams Manufacturing Engineer Chief Relationship Specialty Start Date End Date Shanda Sands APRN 1210 [facility] [address] [address] PCP - General Internal Medicine 01/29/25 documented as of this encounter
--- OUTSIDE RECORDS SUMMARY | 2025-03-06 15:03 | XMS_ITS | Encounter Summary ---
Author Organization [facility] Address [address] [place] [id number] Care Team Providers Care Concierge Manager Name Role Phone Shanda Sands APRN Primary Care Provider Encounter Details Date Type Department Care Team [...] file Travel History Travel Start Travel End [place] 02/02/2025 02/06/2025 documented as of this encounter Plan of Treatment Not on file documented as of this encounter Visit Diagnoses Not on filedocumented in this encounter Care Teams Concierge Manager Relationship Specialty Start Date End Date Shanda Sands APRN 1210 [facility] [address] [address] PCP - General Internal Medicine 01/29/25 documented as of this encounter
--- OUTSIDE RECORDS SUMMARY | 2025-03-06 15:03 | XMS_ITS | Data Portability ---
Author Organization [facility] Address [address] [facility] [address] [place] [address] Care Team Providers Care Metal Bumper Name Role Phone Nora RIVERS Primary Care Provider [phone] Assessment No assessment recorded. Plan of Treatment Reminders Order Date Submit Date Provider Last Modified By Organization Details Last Modified Time Details Appointments None recorded. Lab None recorded. Referral None recorded. Procedures None recorded. Surgeries None recorded. Imaging None recorded. Medication Orders rizatript an 10 mg disintegr ating tablet 2024 025 [facility] 591, [address], [address], 16:57:04 Patient TargetsNo targets recorded. Patient Instructions Encounter Date Encounter Id Patient Instructions Last Modified By Organization Details Last Modified Time 07/22/2024 [id number] 1. Audiogram obtained in office today. Results [...] Address Organization Details Recorded Time Neck pain 33678768 Active 2015 From Automated Load;Prov ider: Charity Erwin;S tatus: Active Not Available [facility] 6 04:59:37 Pain of right hand 82969427223 9109 Active 2015 From Automated Load;Prov ider: Charity Erwin;S tatus: Active Not Available [facility] 6 04:59:37 Hand pain 58494068 Active 2015 From Automated Load;Prov ider: Charity Erwin;S tatus: Active Not Available [facility] 6 04:59:37 Finding of sensation by site Active 2015 From Automated Load;Prov ider: Charity Erwin;S tatus: Active Not Available [facility] 6 04:59:37 Headache 64143405 Active 2015 From Automated Load;Prov ider: Charity Erwin;S tatus: Active Not Available [facility] 6 04:59:37 Neuropath y 260876577 Active 2015 From Automated Load;Prov ider: Linsey Gamez;Sta tus: Active Not Available [facility] 6 04:59:37 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 From Automated Load;Prov ider: Linsey Gamez;Sta tus: Active Not Available [facility] 6 04:59:37 Inflammat ory neuropath y 17905594 Active 2015 From Automated Load;Prov ider: Linsey Gamez;Sta tus: Active Not Available [facility] 6 04:59:37 Paresthes ia of skin Active 2015 From Automated Load;Prov ider: Linsey aGmez;Sta tus: Active Not Available [facility] 6 04:59:37 Enzyme level - finding Active 2015 From Automated Load;Prov ider: Charity Erwin;S tatus: Active Not Available [facility] 7 06:35:45 Fibromyal desirae 689589561 Active 2016 CHARITY ERWIN, TERRAZZO LAYER [address] [place], [address] , [facility] 7 11:22:05 Problem Notes None recorded. Procedures Surgical History Date Name Laterality Status Provider Name and Address Organization Details Recorded Time 07/23/19 Tympanogram completed MAGNO EDGAR AUD [address] [place], [address], [facility] 07/22/2024 10:21:52 07/23/19 Audiogram completed MAGNO EDGAR AUD [address] [place], [address], [facility] 07/22/2024 10:21:50 05/31/19 hysterectomy completed Sheba Brand [facility] 07/22/2024 10:24:00 Cholecystectomy completed Maki Chawla [facility] 09/14/2016 11:17:47 Imaging Results None recorded. Procedure Notes None recorded. Medical Equipment None Reported. Allergies Allergen ID Allergen Name Allergen Category Reaction Reaction Severity Criticality Documentation Date Start Date Code Code System Note Provider Name and Address Organization Details Recorded Time 224108 azithromy fady medicatio n hives Not available Not available 03/24/20162015 12263 RxNorm React ion: HIVES ; Comme nt: Creat ed By: John padilla;Ki eated Date: 016 10:10 :57 AM; Not Available [facility] 6 09:49:48 Medications Name Sig Start Date [...] Updated DateTime 5 165.1 cm 30 kg/m2 91617.6 3 g 97.2 [degF] 101 /min 134/98 mm[Hg] Pema Ketty [facility] 5 09:55:41 Date Recorded Body height Body weight Body mass index (BMI) Heart rate Systolic And Diastolic Provider Name and Address Organization Details Last Updated DateTime 09/14/2016 165.1 cm 98301.05 g 27.7 kg/m2 83 /min 95/67 mm[Hg] Makitony Chawla [facility] 7 11:19:06 Social History Question Answer Notes LastModified by Organizat ion Details LastModified Time Tobacco Smoking Status Current Every Day Smoker Makitony Chawla [facility] 09/14/2016 11:17:34 How Many Years Have You [...] available 07/22/2024 10:22:50 Medical History Condition Response Allergies/Hayfever Y Esophagus/swallowing troubles Y Acid Reflux (GERD) Y Arthritis Y Gynecological HistoryNo gynecological history recorded. Obstetrics History GPAL:G 0 P 0 0 0 0 Past Encounters Encounter ID Performer Location Encounter Start Date Encounter Closed Date Diagnosis/Indication Diagnosis SNOMED-CT Code Diagnosis ICD10 Code Diagnosis IMO Codes Diagnosis Note [id number] CHARITY ERWIN APRN RHEUMATOL OGY [address] [place] [address] 09/14/2016 10:15:49 09/14/2016 13:57:59 Fibromyalgia 063461306 M79.7 chronic and recurring with pcp management available with dx as pcp recently added neurontin and cyclobenza prinewill initiate diclofenac twice daily and continue on cymbalta 30 mg twice daily due to the ill symptoms she had on 60 mg once daily [id number] MD ALIZA RIVERA [facility] [address] [place] [address] 07/22/2024 09:09:13 07/22/2024 11:27:20 Conductive hearing loss of right ear 5452273300 H90.11 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 Migraine 69389488 G43.90 9 [id number] GILDA HOOD ENT [address] [place] [address] 07/22/2024 10:21:29 07/22/2024 10:22:48 Conductive hearing loss of right ear 1033289183 H90.11 Health Concerns Section Related Observation LastModified by Organization Detai ls LastModified Time None Recorded Concern Status LastModified by Organization Details LastModified Time None Recorded Advance Directives Directive None Recorded Payers Insurance Date Sequence Insurance Name Policy Number Policy Scanlon Covered Member ID Scanlon Member ID Guarantor Name 07/26/2024 1 [place] [id number] Harry Rivers [id number] Criss Rivers Notes Date Note Type Note Provider Name and Address Organization Details Recorded Time 09/14/2016 text/html ROS as noted in the HPI no major flare in the interim; started on the denies cp, soa, rash or fever and all others negative CHARITY ERWIN, TERRAZZO LAYER [address] [place], [address], [facility] 09/14/2016 11:38:50 07/22/2024 text/html ROS as noted in the HPI Criss Rivers (48F) visits our office for an evaluation of recurrent ear infection.Criss reports issues with recurrent ear infection for the past 6 or 7 years. She reports tear infections last 6 or 7 yearsantibitoics for the past 5 monasal sprays dont help06/10/24 CT Head ([facility]) - Sinuses clear. Recently, she remains having sinus headaches. She does not tolerate motion sickness. She does have hx of severe migraines in youthTESTING: Audiometric testing was reviewed independently and reveals normal hearing and tympanometry. ELIOT TYLER MD [address] [place], [address], [facility] 07/22/2024 17:15:01 OBGyn Episode No OBEpisode recorded.
--- OUTSIDE RECORDS SUMMARY | 2025-03-06 15:03 | XMS_ITS | Clinical Summary ---
Author Organization [facility] Address [address] [place] [address] Phone Care Team Providers Care Theoretical Physicist Name Role Phone Sandie Sands Primary Care Provider [phone] Jese BUSH, Simon Melendez Unavailable [phone] Reason for Visit and Chief Complaint The Chief Complaint is: low back pain Problems Includes: Problems addressed during this encounter and other active Problems Current Visit Onset Date Resolved Date Provider Conditio n Status Lower Back Pain 12/13/2023 Simon Sawant MD Act ting Last Documented On 4 11:09AM ; [facility] Past Visits Onset Date Resolved Date Provider Condition Status Right Ankle Joint Pain 12/06/2017 Simon Sawant MD Active Last Documented On 8 8:36AM ; [facility], [facility] Plan of Treatment Patient was seen by myself and Dr. Jese Gallagher PA-C. Patient will follow up 6 weeks after we try a right L4-L5 L5-S1 medial branch block there is no surgery recommended for her. He was given a brochure some exercises to work on. - Last Documented On 12/13/2023 12:04PM ; [facility], [facility] Instructions to patient Intervention and counseling on cessation of tobacco use Last Documented On 4 11:19AM ; [facility], [facility] Lose weight Last Documented On 4 11:19AM ; [facility], [facility] Assessments Includes: Assessments from this encounter Findings - Overweight - Last Documented On 12/13/2023 12:04PM ; [facility], [facility] L4-L5 L5-S1 facet arthritis - Last Documented On 12/13/2023 12:04PM ; [facility], [facility] Instructions Includes: Instructions from this encounter Instructions to patient Intervention and counseling on cessation of tobacco use Last Documented On 4 11:19AM ; [facility], [facility] Lose weight Last Documented On 4 11:19AM ; [facility], [facility] Medical Equipment - Implanted Devices Includes: Current Devices No Medical Equipment Recorded Medications Includes: Medications discussed during this encounter and other current Medications Discontinued / Stopped on this date MARCIA SANDS on 10/10/2023 DULoxetine HCl 30 MG Oral Ca psule Delayed Release Particles Provider: MARCIA SANDS Diagnosis: Last Documented On 4 11:26AM By Yany Peterson ; [facility], [facility] Primidone 50MG Oral Tablet Provider: Diagnosis: Last Documented On 4 11:20AM By Tita Euceda ; [facility], [facility] Cyclobenzaprine HCl Powder Provider: Diagnosis: Last Documented On 4 11:20AM By Tita Euceda ; [facility], [facility] Vitamin D3 [id number] Oral Capsule Provide r: Diagnosis: Last Documented On 4 11:20AM By Tita Euceda ; [facility], [facility] Gabapentin 100MG Oral Capsule Provider: Diagnosis: Last Documented On 4 11:20AM By Tita Euceda ; [facility], [facility] Super B-Complex Oral Capsule Provider: Diagnosis: Last Documented On 4 11:20AM By Tita Euceda ; [facility], [facility] Current Medications (continue as prescribed) Esomeprazole Magnesium 20 MG Oral Tablet Delayed Relea se 12/13/2023 Provider: Diagnosis: Last Documented On 4 11:27AM By Yany Peterson ; [facility], [facility] DULoxetine HCl 30 MG Oral Ca psule Delayed Release Particles 12/03/2023 Provider: MARCIA SANDS Diagnosis: Last Documented On 4 11:20AM By Tita Euceda ; [facility], [facility] Methocarbamol 750 MG Oral Tablet 11/20/2023 Provider : MARCIA SANDS Diagnosis: Last Documented On 4 11:20AM By Ttia Euceda ; [facility] Pregabalin 50 MG Oral Capsule 11/20/2023 Provider: MARCIA SANDS Diagnosis: Last Documented On 4 11:20AM By Tita Euceda ; [facility], [facility] Celecoxib 200 MG Oral Capsule 11/20/2023 Provider: MARCIA SANDS Diagnosis: Last Documented On 4 11:20AM By Tita Euceda ; [facility], [facility] Primidone 50 MG Oral Tablet 11/17/2023 Provider: Gauri Stafford DO Diagnosis: Last Documented On 4 11:26AM By Yany Peterson ; [facility], [facility] Amitriptyline HCl 25 MG Oral Tablet 10/17/2023 Provi sony: MARCIA SANDS Diagnosis: Last Documented On 4 11:20AM By Tita Euceda ; [facility], [facility] Medications Administered Includes: Administered Medications from this encounter No Administered Medications Recorded Vital Signs Includes: Vital Signs from this encounter Vital Name 12/13/2023 11:16A Height (in) 65 Weight (lb) 181.4 Body Mass Index 30.2 Body Surface Area 1.9 Pain Level 2 Note: lc Last Documented: On 12/13/2023 11:18A M ; [facility], [facility] Results Includes: Results discussed during this encounter [...] has history of fibromyalgia as well as Guillain-[place]. Over last 3 months it has gotten [...] 12/06/2017 Last Documented On 4 11:29AM ; [facility] Exercising regularly 12/06/2017 Last Documented On 4 11:29AM ; [facility] No recent change in diet 12/06/2017 Last Documented On 4 11:29AM ; [facility] Not using alcohol 12/06/2017 Last Documented On 4 11:29AM ; [facility] Not using drugs 12/06/2017 Last Documented On 4 11:29AM ; [facility] Procedures and Surgical History Includes: Procedures from this encounter Procedures Code Diagnosis Performing Provider Service L ocation Service Date an X-ray was performed 92719 Last Documented On 4 11:28AM ; [facility], [facility] an MRI was performed 11/09/2023 [facility] [id number] Last Documented On 4 11:19AM ; [facility] Surgical History Last Updated History of History of Gallbladder 2023 Last Documented On 4 11:28AM ; [facility] History of hysterectomy 12/13/2023 Last Documented On 4 11:17AM ; [facility] History of Past Surgical History: 2023 Last Documented On 4 11:17AM ; [facility] Medical History Includes: Medical History addressed during this encounter Description Last Updated Fibromyalgia 12/06/2017 Last Documented On 4 11:29AM ; [facility] Arthritic joint problems 12/06/2017 Last Documented On 4 11:29AM ; [facility] Gallbladder disease 12/06/2017 Last Documented On 4 11:29AM ; [facility] History of osteoporosis 12/06/2017 Last Documented On 4 11:29AM ; [facility] Family History Includes: Family History addressed during this encounter Description Last Updated Diabetes mellitus 12/13/2023 Last Documented On 4 11:29AM ; [facility] Family history of cancer 12/13/2023 Last Documented On 4 11:29AM ; [facility] Family history of heart disease 12/13/19 24 Last Documented On 4 11:29AM ; [facility] Family history of systemic hypertension 12/13/2023 Last Documented On 4 11:29AM ; [facility] Family history of thromboembolic disease 12/13/2023 Last Documented On 4 11:29AM ; [facility] Stroke / Seizures 12/13/2023 Last Documented On 4 11:29AM ; [facility] Maternal grandmother's history of diabet es mellitus 12/13/2023 Last Documented On 4 11:17AM ; [facility] Maternal grandmother's history of family history of cancer 12/13/2023 Last Documented On 4 11:17AM ; [facility] Maternal history of systemic hypertensio n 12/13/2023 Last Documented On 4 11:17AM ; [facility] Paternal grandfather's history of family history of cancer 12/13/2023 Last Documented On 4 11:17AM ; [facility] Paternal grandfather's history of family history of heart disease 12/13/2023 Last Documented On 4 11:17AM ; [facility] Paternal grandfather's history of Stroke / Seizures 12/13/2023 Last Documented On 4 11:17AM ; [facility] Paternal grandmother's history of Stroke / Seizures 12/13/2023 Last Documented On 4 11:17AM ; [facility] Paternal history of systemic hypertensio n 12/13/2023 Last Documented On 4 11:17AM ; [facility], [facility] Paternal history of thromboembolic disea se 12/13/2023 Last Documented On 4 11:17AM ; [facility] Review of Systems Includes: Review of [...] On 4 11:27AM ; [facility] pain med sensitive Allergy 12/13/2023 Active Last Documented On 4 11:25AM ; [facility], [facility] Encounters Encounter Provider Location Date Check-In Time Check-Out Time Diagnosis Physician Specified Simon Sawant MD [facility] 12/13/19 24 10:27AM 11:38AM Overweight Insurance Includes: Active Insurance Policies Plan Name Member ID Group # Subscriber Relationship Effect ting Dates 1 - [facility] [id number] Harry Benoit 04/30/2017 - Unknown Clinical Notes Includes: Clinical Notes from this encounter No Clinical Notes Recorded
--- OUTSIDE RECORDS SUMMARY | 2025-03-06 15:03 | XMS_ITS ---
Author Organization [facility] Address [address] [place] [address] Phone Care Team Providers Care Metal Drilling Machine Operator Name Role Phone Sandie Sands Primary Care Provider [phone] Jese BUSH, Simon Melendez Unavailable [phone] Problems Includes: Active, inactive, and resolved Problems All Visits Onset Date Resolved Date Provider Condition S tatus Lower Back Pain 12/13/2023 Simon Sawant MD Act ting Last Documented On 4 11:09AM ; [facility] Right Ankle Joint Pain 12/06/2017 Simon Sawant MD Active Last Documented On 8 8:36AM ; [facility], [facility] Plan of Treatment Instructions to patient Intervention and counseling on cessation of tobacco use Last Documented On 4 11:19AM ; [facility], [facility] Lose weight Last Documented On 4 11:19AM ; [facility], [facility] Assessments Includes: Assessments for all patient encounters Findings Encounter Date Overweight Physician Specified with Simon Sawant MD 12/13/2023 Last Documented On 4 12:04PM ; [facility], [facility] Instructions Includes: Instructions for all patient encounters Instructions to patient Intervention and counseling on cessation of tobacco use Last Documented On 4 11:19AM ; [facility], [facility] Lose weight Last Documented On 4 11:19AM ; [facility], [facility] Medical Equipment - Implanted Devices Includes: Current and historical Devices No Medical Equipment Recorded Medications Includes: Current and historical Medications Current Medications (continue as prescribed) Esomeprazole Magnesium 20 MG Oral Tablet Delayed Relea se 12/13/2023 Provider: Diagnosis: Last Documented On 4 11:27AM By Yany Peterson ; [facility] DULoxetine HCl 30 MG Oral Ca psule Delayed Release Particles 12/03/2023 Provider: MARCIA SANDS Diagnosis: Last Documented On 4 11:20AM By Tita Euceda ; [facility] Methocarbamol 750 MG Oral Tablet 11/20/2023 Provider : MARCIA SANDS Diagnosis: Last Documented On 4 11:20AM By Tita Euceda ; [facility] Pregabalin 50 MG Oral Capsule 11/20/2023 Provider: MARCIA SANDS Diagnosis: Last Documented On 4 11:20AM By Tita Euceda ; [facility] Celecoxib 200 MG Oral Capsule 11/20/2023 Provider: MARCIA SANDS Diagnosis: Last Documented On 4 11:20AM By Tita Euceda ; [facility], [facility] Primidone 50 MG Oral Tablet 11/17/2023 Provider: Gauri Stafford DO Diagnosis: Last Documented On 4 11:26AM By Yany Peterson ; [facility], [facility] Amitriptyline HCl 25 MG Oral Tablet 10/17/2023 Provi sony: MARCIA SANDS Diagnosis: Last Documented On 4 11:20AM By Tita Euceda ; [facility], [facility] Past Medications on file DULoxetine HCl 30 MG Oral Ca psule Delayed Release Particles 10/10/2023 - 12/13/2023 Provider: MARCIA VASQUEZ Diagnosis: Last Documented On 4 11:26AM By Yany Peterson ; [facility], [facility] Primidone 50MG Oral Tablet 12/06/2017 - 12/13/2023 Pro vider: Diagnosis: Last Documented On 4 11:20AM By Tita Euceda ; [facility], [facility] Cyclobenzaprine HCl Powder 12/06/2017 - 12/13/2023 Pro vider: Diagnosis: Last Documented On 4 11:20AM By Tita uEceda ; [facility], [facility] Vitamin D3 [id number] Oral Capsule 12/06/2017 - 024 Provider: Diagnosis: Last Documented On 4 11:20AM By Tita Euceda ; [facility], [facility] Gabapentin 100MG Oral Capsule 12/06/2017 - 12/13/2023 Provider: Diagnosis: Last Documented On 4 11:20AM By Tita Euceda ; [facility] Super B-Complex Oral Capsule 12/06/2017 - 12/13/2023 P peñader: Diagnosis: Last Documented On 4 11:20AM By Tita Euceda ; [facility] Medications Administered Includes: Administered Medications in patient's chart No Administered Medications Recorded Results Includes: Results from 03/06/2024 through 03/06/2025 No Results Recorded For Specified Dates History of Present Illness History of Present Illness not supported for this document type No History of Present Illness Recorded Social History Description Last Updated No tobacco use 01/03/2018 Last Documented On 8 3:04PM ; [facility] Smoking status : Current everyday smoker 01/03/2018 Last Documented On 8 3:04PM ; [facility] Caffeine use 12/06/2017 Last Documented On 8 10:18AM ; [facility] Current smoker 12/06/2017 Last Documented On 8 10:18AM ; [facility], [facility] Exercising regularly 12/06/2017 Last Documented On 8 10:18AM ; [facility], [facility] No recent change in diet 12/06/2017 Last Documented On 8 10:18AM ; [facility] Not using alcohol 12/06/2017 Last Documented On 8 10:18AM ; [facility] Not using drugs 12/06/2017 Last Documented On 8 10:18AM ; [facility] Procedures and Surgical History Surgical History Last Updated History of hysterectomy 12/06/2017 Last Documented On 8 10:18AM ; [facility] Medical History Includes: Medical History in patient's chart Description Last Updated Fibromyalgia 12/06/2017 Last Documented On 8 10:18AM ; [facility] Arthritic joint problems 12/06/2017 Last Documented On 8 10:18AM ; [facility], [facility] Gallbladder disease 12/06/2017 Last Documented On 8 10:18AM ; [facility], [facility] History of osteoporosis 12/06/2017 Last Documented On 8 10:18AM ; [facility], [facility] Family History Includes: Family History in patient's chart Description Last Updated No significant family history 12/06/2017 Last Documented On 8 10:18AM ; [facility], [facility] Review of Systems Review of Systems not [...] Active Last Documented On 4 11:27AM ; [facility], [facility] pain med sensitive Allergy 12/13/2023 Active Last Documented On 4 11:25AM ; [facility], [facility] Insurance Includes: Active Insurance Policies Plan Name Member ID Group # Subscriber Relationship Effect ting Dates 1 - [facility] [id number] Harry Benoit W 04/30/2017 - Unknown Clinical Notes Includes: Signed Clinical Notes starting from 04/13/2022 No Clinical Notes Recorded
--- OUTSIDE RECORDS SUMMARY | 2025-03-06 15:03 | XMS_ITS | Clinical Summary ---
Author Organization [facility] Address [address] [place] [address] Phone Care Team Providers Care Biology Teacher Name Role Phone Sandie Sands Primary Care Provider [phone] Jese BUSH, Simon Melendez Unavailable [phone] Reason for Visit and Chief Complaint The Chief Complaint is: Right ankle pain Problems Includes: Problems addressed during this encounter and other active Problems Current Visit Onset Date Resolved Date Provider Conditio n Status Lower Back Pain 12/13/2023 Simon Sawant MD Act ting Last Documented On 4 11:09AM ; [facility], [facility] Past Visits Onset Date Resolved Date Provider Condition Status Right Ankle Joint Pain 12/06/2017 Simon Sawant MD Active Last Documented On 8 8:36AM ; [facility], [facility] Plan of Treatment Patient was seen by myself Kunal Gallagher PA-C and Dr. Sawant We'll see her back as needed and encouraged her to just continue with her exercises on her own. - Last Documented On 01/24/2018 1:37PM ; [facility], [facility] Assessments Includes: Assessments from this encounter Findings Right ankle sprain - Last Documented On 01/24/2018 1:37PM ; [facility], [facility] Medical Equipment - Implanted Devices Includes: Current Devices No Medical Equipment Recorded Medications Includes: Medications discussed during this encounter and other current Medications Current Medications (continue as prescribed) Esomeprazole Magnesium 20 MG Oral Tablet Delayed Relea se 12/13/2023 Provider: Diagnosis: Last Documented On 4 11:27AM By Yany Peterson ; [facility], [facility] DULoxetine HCl 30 MG Oral Ca psule Delayed Release Particles 12/03/2023 Provider: MARCIA SANDS Diagnosis: Last Documented On 4 11:20AM By Tita Euceda ; [facility], [facility] Methocarbamol 750 MG Oral Tablet 11/20/2023 Provider : MARCIA SANDS Diagnosis: Last Documented On 4 11:20AM By Tita Euceda ; [facility], [facility] Pregabalin 50 MG Oral Capsule 11/20/2023 Provider: MARCIA SANDS Diagnosis: Last Documented On 4 11:20AM By Tita Euceda ; [facility], [facility] Celecoxib 200 MG Oral Capsule 11/20/2023 Provider: MARCIA SANDS Diagnosis: Last Documented On 4 11:20AM By Tita Euceda ; [facility], [facility] Primidone 50 MG Oral Tablet 11/17/2023 Provider: Gauri Stafford DO Diagnosis: Last Documented On 4 11:26AM By Yany Peterson ; [facility], [facility] Amitriptyline HCl 25 MG Oral Tablet 10/17/2023 Provi sony: MARCIA SANDS Diagnosis: Last Documented On 4 11:20AM By Tita Euceda ; [facility], [facility] Medications Administered Includes: Administered Medications from this encounter No Administered Medications Recorded Vital Signs Includes: Vital Signs from this encounter Vital Name 01/24/2018 09:17A Height (in) 65 Weight (lb) 182 Body Mass Index (kg/m2) 30.3 Body Surface Area (m2) 1.9 Note: jkp Last Documented: On 01/24/2018 9:17AM ; [facility], [facility] Results Includes: Results discussed during [...] 01/03/2018 Last Documented On 8 9:01AM ; [facility] Smoking status : Current everyday smoker 01/03/2018 Last Documented On 8 9:01AM ; [facility] Medical History Includes: Medical History addressed [...] Active Last Documented On 4 11:27AM ; [facility] pain med sensitive Allergy 12/13/2023 Active Last Documented On 4 11:25AM ; [facility] Encounters Encounter Provider Location Date Check-In Time Check- Out Time Diagnosis Follow Up Simon Sawant MD [facility] 8 8:57AM 9:52AM Insurance Includes: Active Insurance Policies Plan Name Member ID Group # Subscriber Relationship Effect ting Dates 1 - [facility] [id number] Harry Benoit 04/30/2017 - Unknown Clinical Notes Includes: Clinical Notes from this encounter No Clinical Notes Recorded
--- OUTSIDE RECORDS SUMMARY | 2025-03-06 15:03 | XMS_ITS | Data Portability ---
Author Organization [facility] ADMIN Address [address] [place] [id number] Assessment No assessment recorded. Plan of Treatment Reminders Order Date Submit Date Provider Last Modified By Organization Details Last Modified Time Details Appointments None recorded. Lab None recorded. Referral None recorded. Procedures nerve conduction study/EMG, upper extremity (PROC) 2023 024 [email or web address] Not available 4 10:39:09 nerve conduction study/EMG, lower extremity (PROC) 2023 024 Not available 4 15:16:24 Surgeries None recorded. Imaging None recorded. Medication Orders primidone 50 mg tablet 2021 022 [facility] 591, [address], [address], 2 11:52:27 Patient TargetsNo targets recorded. Patient InstructionsNo instructions recorded. Reason for Referral None Reported. Problems Name Problem SNOMED Code Status Onset Date Resolution Date Notes Provider Name and Address Organization Details Recorded Time Essential tremor 442176065 Active 2021 Laura boyer, [facility] & [place] 2 11:05:10 Idiopathic peripheral neuropathy 18730412 Active [address], [place], [address] , [facility] & [place] 2 11:52:34 Paresthesia 01543641 Active [address], [place], [address] , [facility] [place] 4 10:27:00 Paresthesia of upper limb 79900895 Active 2023 Gauri Stafford DO [address] , [place], [address] , [facility] & [place] 4 10:39:00 Problem Notes None recorded. Procedures Surgical History Date Name Laterality Status Provider Name and Address Organization Details Recorded Time 06/28/19 24 EMG/ Nerve Conduction Study completed DO Radha Se[address] , [place], [address], [facility] & [place] 06/28/2023 10:38:56 06/18/19 24 EMG/ Nerve Conduction Study completed DO Radha [address] , [place], [address], [facility] & [place] 06/18/2023 15:15:58 01/29/20 16 Cholecystectomy completed [facility] [place] 01/11/2022 11:08:46 04/30/19 03 hysterectomy completed Laura Rosadoregina ALIZA [facility] & [place] 01/11/2022 11:08:04 Imaging Results None recorded. Procedure Notes None recorded. Medical Equipment None Reported. Allergies Allergen ID Allergen Name Allergen Category Reaction Reaction Severity Criticality Documentation Date Start Date Code Code System Note Provider Name and Address Organization Details Recorded Time 30775 Zithromax medicatio n Not available Not available Not available 01/11/2022 4 RxNorm Laura Rosadoregina boyer ALIZA - [facility] & [place] 11:03:45 Medications Name Sig Start Date Stop Date Status Note LastModified by Organization Details LastModified Time cyclobenzap rine 10 mg tablet TAKE 1 TABLET BY MOUTH THREE TIMES DAILY active Not Available Not Available No t Available amoxicillin 500 mg capsule TAKE 1 CAPSULE BY MOUTH TWICE DAILY, BRING TO OFFICE FOR DRUG CHALLENGE 01/10 completed Not Available Not Available Not Available primidone 50 mg tablet TAKE 2 TABLETS BY MOUTH IN THE MORNING, 2 TABLETS AT NOON, AND 3 TABLETS AT NIGHT active Not Available Not Available No t Available promethazin e-DM 6.25 mg-15 mg/5 mL oral syrup TAKE 5 ML BY MOUTH EVERY 4 TO 6 HOURS NEEDED FOR COUGH active Not Available Not Available No t Available cetirizine 10 mg tablet TAKE 1 TABLET BY MOUTH ONCE DAILY 01/10 completed Not Available Not Available Not Available fluconazole 200 mg tablet TAKE 1 TABLET BY MOUTH ONCE DAILY 01/10 completed Not Available Not Available Not Available prednisone 20 mg tablet TAKE 1 TABLET BY MOUTH TWICE DAILY FOR 5 DAYS 01/10 completed Not Available Not Available Not Available sulfamethox azole 800 mg-trimetho prim 160 mg tablet TAKE 1 TABLET BY MOUTH TWICE DAILY FOR 10 DAYS 01/11 completed Not Available Not Available Not Available ofloxacin 0.3 % ear drops INSTILL 4 DROPS INTO EACH EAR TWICE DAILY 01/10 completed Not Available Not Available Not Available amoxicillin 875 mg tablet TAKE 1 TABLET BY MOUTH TWICE DAILY FOR 10 DAYS 06/05 completed Not Available Not Available Not Available amitriptyli ne 25 mg tablet TAKE 1 TABLET BY MOUTH ONCE DAILY AT BEDTIME active Not Available Not Available No t Available amitriptyli ne 10 mg tablet TAKE 1 TABLET BY MOUTH ONCE DAILY AT BEDTIME 01/11 completed Not Available Not Available Not Available meclizine 25 mg tablet TAKE 1 TABLET BY MOUTH THREE TIMES DAILY NEEDED FOR 10 DAYS 06/05 completed Not Available Not Available Not Available diclofenac sodium 75 mg tablet,hallie yed release TAKE 1 TABLET BY MOUTH TWICE DAILY WITH FOOD OR MILK FOR 90 DAYS active Not Available Not Available No t Available montelukast 10 mg tablet TAKE 1 TABLET BY MOUTH ONCE DAILY IN THE EVENING 01/11 completed Not Available Not Available Not Available azelastine 137 mcg (0.1 %) nasal spray USE 1 TO 2 SPRAY(S) IN EACH NOSTRIL TWICE DAILY NEEDED active Not Available Not Available No t Available methylpredn isolone 4 mg tablets in a dose pack TAKE BY MOUTH DIRECTED ON INSIDE OF PACKAGE active Not Available Not Available No t Available albuterol sulfate HFA 90 mcg/actuati on aerosol inhaler INHALE 2 PUFFS BY MOUTH EVERY 4 TO 6 HOURS NEEDED FOR SHORTNESS OF BREATH FOR WHEEZING active Not Available Not Available No t Available cefdinir 300 mg capsule TAKE 1 CAPSULE BY MOUTH TWICE DAILY active Not Available Not Available No t Available fluticasone propionate 50 mcg/actuati on nasal spray,suspe nsion USE 2 SPRAY(S) IN EACH NOSTRIL ONCE DAILY 01/10 completed Not Available Not Available Not Available amoxicillin 875 mg-larissa m clavulanate 125 mg tablet TAKE 1 TABLET BY MOUTH EVERY 12 HOURS FOR 10 DAYS 01/10 completed Not Available Not Available Not Available duloxetine 30 mg capsule,del ayed release TAKE 1 CAPSULE BY MOUTH TWICE DAILY active Not Available Not Available No t Available levocetiriz ine 5 mg tablet TAKE 1 TABLET BY MOUTH ONCE DAILY active Not Available Not Available No t Available Vitals Date Recorded Body height Body mass index (BMI) Body weight Oxygen saturation Oxygen saturation in Arterial blood by Pulse oximetry Heart rate Systolic And Diastolic Provider Name and Address Organization Details Last Updated DateTime 4 165.1 cm 32.2 kg/m2 46411.7 6 g 98 % 98 % 114 /min 100/62 mm[Hg] Laura VAN [facility] & [place] 4 10:20:39 Date Recorded Body height Body mass index (BMI) Body weight Heart rate Systolic And Diastolic Provider Name and Address Organization Details Last Updated DateTime 06/18/2023 165.1 cm 32 kg/m2 22668.45 g 123 /min 102/72 mm[Hg] Laura VAN [facility] [place] 06/18/2023 14:58:46 Date Recorded Body height Body mass index (BMI) Body weight Heart rate Systolic And Diastolic Provider Name and Address Organization Details Last Updated DateTime 06/28/2023 165.1 cm 31.8 kg/m2 69904.14 g 108 /min 124/87 mm[Hg] Laura VAN [facility] [place] 06/28/2023 10:32:11 Date Recorded Body height Body mass index (BMI) Body weight Oxygen saturation Oxygen saturation in Arterial blood by Pulse oximetry Heart rate Systolic And Diastolic Provider Name and Address Organization Details Last Updated DateTime 3 165.1 cm 33.7 kg/m2 51329.1 g 95 % 95 % 115 /min 122/72 mm[Hg] Laura VAN [facility] [place] 3 10:47:09 Date Recorded Body height Body mass index (BMI) Body weight Heart rate Systolic And Diastolic Provider Name and Address Organization Details Last Updated DateTime 01/11/2022 165.1 cm 31.7 kg/m2 10959.71 g 119 /min 100/56 mm[Hg] Laura Gracia [place] - [facility] - [place] & [place] 01/11/2022 11:28:05 Social History None recorded. Functional Status Question Answer Note LastModified by Organizat ion Details LastModified Time Do you use any illicit or recreational drugs? No Information not available 01/11/2022 Do you or have you ever used any other forms of tobacco or nicotine? No Information not available 01/11/2022 What is your level of alcohol consumption? None Information not available 01/11/2022 Mental Status None recorded. Family History Relationship Description Onset Age of this Age Resolved Age Notes LastModified by Organization Details LastModified Time Mother Hypertensive disorder ldalla Not available 2021 11:05:54 Father Family history unknown ldalla Not available 2021 11:06:29 Notes:both alive Medical History Condition Response Headaches Y Neurological Problems Y Osteoporosis Y Gynecological HistoryNo gynecological history recorded. Obstetrics History GPAL:G 0 P 0 0 0 0 Past Encounters Encounter ID Performer Location Encounter Start Date Encounter Closed Date Diagnosis/Indication Diagnosis SNOMED-CT Code Diagnosis ICD10 Code Diagnosis IMO Codes Diagnosis Note [id number] Gauri Stafford ZZ [facility] Neurology [address] [facility],[address] [place] [address] 01/11/2022 10:50:49 01/11/2022 13:58:25 Essential tremor 474180125 G25.0 She is doing well on primidone at the current dose. She did have recent labs with the PCP and her CMP was normal. She needs refills today. 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 Her medication s are managed by her PCP. She has to change to elavil from gabapentin in the last year but not found this to be as effective. I suggested she discuss with PCP a dose increase of the elavil and if that does not help then maybe a dose increase in her cymbalta. [id number] DO SHARITA [facility] Neu[facility] [address] [facility],[address] [address] 01/10/2023 10:27:29 01/10/2023 11:08:58 Essential tremor 355196002 G25.0 Chronic condition that is stable on her current medication . She will continue with the primidone at the current dose. She does not need refills today. [id number] [facility] [address] [facility],[address] [address] 06/05/2023 09:55:47 06/05/2023 10:38:10 Essential tremor 812080679 G25.0 Chronic condition that is stable on her current medication . She will continue with the primidone at the current dose. She does not need refills today. Paresthesia 25181808 R20 .2 Long standing pain and paresthesi as in her hands and legs. In the past this has primarily been attributed to fibromyalg ia but she does not find the medication s have any positive effects.Wi order NCV/EMG BUE and BLE to evaluate for any evidence to support CIDP associated with her remote history of GBS.She also has radicular type pain in her BLE's. [id number] [facility] [address] [facility],[address] [address] 06/18/2023 14:43:24 06/18/2023 15:32:25 Paresthesia 90929374 R20.2 Long standing pain and paresthesi as in her hands and legs. In the past this has primarily been attributed to fibromyalg ia but she does not find the medication s have any positive effects.Wi order NCV/EMG BUE and BLE to evaluate for any evidence to support CIDP associated with her remote history of GBS.She also has radicular type pain in her BLE's. [id number] DO Carla Seay [facility] [address] [facility],[address] [address] 06/28/2023 10:24:39 06/28/2023 10:52:56 Paresthesia of upper limb 27922903 R20.2 Health Concerns Section Related Observation LastModified by Organization Detai ls LastModified Time None Recorded Concern Status LastModified by Organization Details LastModified Time None Recorded Advance Directives Directive None Recorded Payers Insurance Date Sequence Insurance Name Policy Number Policy Scanlon Covered Member ID Scanlon Member ID Guarantor Name 06/25/2023 1 [employer] [id number] Harry Benoit [id number] Criss Benoit Notes Date Note Type Note Provider Name and Address Organization Details Recorded Time 01/11/2022 text/html 46 y/o female here for routine follow up on her ET and chronic neuropathy. She has been on primidone to manage her tremors. She has not appreciated any increase in the hand tremors. She occasionally will notice her tremors will be a little worse at night which she attributes to some stress and over thinking things. She denies any side effects from this medication. Her PCP manages her medications for her neuropathy. She had to change from gabapentin to elavil due to insurance issues. She has not found it to work as well. She has not tried any higher dose than 25mg. She is also on cymbalta for her back pain. She has not tried higher doses than 30mg bid.She does find her nerve pain is fairly constant. She also had DDD in her low back which also is a constant level of discomfort for her.She struggles to sleep at night frequently due to her pain.She denies any falls. Gauri Stafford, DO [address] [facility], [place], [address], [place] - [facility] - [place] & [place] 01/11/2022 14:56:44 01/10/2023 text/html Criss comes in today for follow up. The last visit her primidone dose seemed to be working well so no changes were made. She also has peripheral neuropathy. Her PCP has been managing her medications for this. Today she reports her tremors are stable. She does find the primidone does work well. She denies any sedation from her dose.She denies any new health concerns this past year.She has chronic back pain which she tells me has been a bit worse of late. She takes duloxetine for fibromyalgia and neuropathy. Due to insurance she had to stop her gabapentin but has continued with amitriptyline. PRIOR VISIT: (01/11/23)46 y/o female here for routine follow up on her ET and chronic neuropathy. She has been on primidone to manage her tremors. She has not appreciated any increase in the hand tremors. She occasionally will notice her tremors will be a little worse at night which she attributes to some stress and over thinking things. She denies any side effects from this medication. Her PCP manages her medications for her neuropathy. She had to change from gabapentin to elavil due to insurance issues. She has not found it to work as well. She has not tried any higher dose than 25mg. She is also on cymbalta for her back pain. She has not tried higher doses than 30mg bid.She does find her nerve pain is fairly constant. She also had DDD in her low back which also is a constant level of discomfort for her.She struggles to sleep at night frequently due to her pain.She denies any falls. Gauri Stafford, DO [address] [facility], [place], [address], [facility] - NT - [place] & [place] 01/10/2023 11:10:20 06/05/2023 text/html Criss comes in for an early follow up due to increased pain in her legs. She is accompanied by her who helps supplement the history.She has previously reported that her PCP manages her medications for neuropathy pain in her legs. The last visit she was on duloxetine and amitriptyline which she is continuing to take today.Today she complains of pain in the back of both her legs, worse on the left. It has been ongoing for the last three months. The character is sharp. She denies any injuries. She also feel her neuropathy pain in her hands and legs is getting worse.She is concerned regarding her diagnosis of fibromyalgia since reading a recent article about GBS. She was diagnosed by a field operations manager and during that workup she was sent to another neurologist for testing. She is not aware of what the prior nerve testing showed. It was done several years ago and now she feels her pain and numbness is progressing.She does report that her ET is under good control with the primidone. She has bad days where she takes a few extra but this is not frequent. PRIOR VISIT: (01/10/23)Criss comes in today for follow up. The last visit her primidone dose seemed to be working well so no changes were made. She also has peripheral neuropathy. Her PCP has been managing her medications for this. Today she reports her tremors are stable. She does find the primidone does work well. She denies any sedation from her dose.She denies any new health concerns this past year.She has chronic back pain which she tells me has been a bit worse of late. She takes duloxetine for fibromyalgia and neuropathy. Due to insurance she had to stop her gabapentin but has continued with amitriptyline. PRIOR VISIT: (01/11/23)46 y/o female here for routine follow up on her ET and chronic neuropathy. She has been on primidone to manage her tremors. She has not appreciated any increase in the hand tremors. She occasionally will notice her tremors will be a little worse at night which she attributes to some stress and over thinking things. She denies any side effects from this medication. Her PCP manages her medications for her neuropathy. She had to change from gabapentin to elavil due to insurance issues. She has not found it to work as well. She has not tried any higher dose than 25mg. She is also on cymbalta for her back pain. She has not tried higher doses than 30mg bid.She does find her nerve pain is fairly constant. She also had DDD in her low back which also is a constant level of discomfort for her.She struggles to sleep at night frequently due to her pain.She denies any falls. Gauri Stafford, DO [address] , [place], [address], [place] - [facility] - [place] & [place] 06/05/2023 10:38:58 OBGyn Episode No OBEpisode recorded.
--- OUTSIDE RECORDS SUMMARY | 2025-03-06 15:03 | XMS_ITS | Clinical Summary ---
[facility] Address [address] [place] [address] Care Team Providers Care German Teacher Name Role Phone Shanda Sands APRN Primary Care Provider + [phone] Allergies Active Allergy Reactions Criticality Noted Date [...] for Nausea or Vomiting. 5 Active rizatriptan SKIN CARE THERAPIST (MAXALT-SKIN CARE THERAPIST) 10 MG disintegrating tablet DISSOLVE 1 TABLET IN MOUTH ONCE DAILY NEEDED MAX 8 TABLETS PER MONTH 5 Active Active Problems No known active problems Encounters Date Type Department Care Team Description 03/03/2025 2:00 PM EST Office Visit [facility] [address] [address] Mica Brown, SOFIYA Bilateral leg weakness (Primary Dx); Complaints of leg weakness 03/03/2025 Travel 02/16/2025 1:00 PM EDT Office Visit [facility] [address] [facility] [address] [place] [address] Mica Brown PA-C Complaints of leg [...] file Travel History Travel Start Travel End [place] 02/02/2025 02/06/2025 Last Filed Vital Signs Vital Sign Reading Time Taken Comments Blood Pressure - - Pulse - - Temperature 36.1 C (96.9 F) 03/03/2025 1:47 PM EST Respiratory Rate 18 02/16/2025 12:37 PM EDT Oxygen Saturation - - Inhaled Oxygen Concentration - - Weight 89.6 kg (197 lb 9.6 oz) 03/03/2025 1:47 P M EST Height 165.1 cm (5' 5 ) 03/03/2025 1:47 PM EST Body Mass Index 32.88 03/03/2025 1:47 PM EST Plan of Treatment Health Maintenance Due Date Last Done Comments [...] Procedure Name Priority Date/Time Associated Diagnosis Comments MRI OUTSIDE FILMS Routine 02/27/2025 12: 00 AM EDT SCANNED - LABS 01/04/2025 MRI OUTSIDE FILMS Routine 12/30/2024 12: 00 AM EDT SCANNED - IMAGING 12/30/2024 SCANNED EMG 12/15/2024 from Last 3 Months Results * MRI Outside Films (02/27/2025 12:00 AM EDT) Only the most recent of2 resultswithin the time period is included. Narrative SYSTEMGENERATED, DOCUMENTATION - 03/03/2025 1:51 PM EST This procedure was auto-finalized with no dictation required. Mica Brown PA-C IMG MRI ORDERABLES Final Resul t * LABS SCANNED (01/04/2025) [facility] LAB BLOOD ORDERABLES Final Re sult * IMAGING SCANNED (12/30/2024) Anatomical Region Laterality Modality Radiographic Samantha ging [facility] IMG DIAGNOSTIC IMAGING ORDERA BLES Final Result * EMG SCANNED (12/15/2024) [facility] NEUROLOGY ORDERABLES Final Re sult from Last 3 Months Insurance [facility] PPO MEDICARE A & B Care Teams German Teacher Relationship Specialty Start Date End Date Shanda Sands APRN [address] [place] [id number] PCP - General Internal Medicine 01/29/25
--- NOTE | 2025-03-06 15:35 | MM_ITS ---
PROCEDURE INFORMATION: Exam: Bilateral Screening 3D Mammography Exam date and time: 03/06/2025 3:26 PM Age: 49 years old Clinical indication: Screening examination. TECHNIQUE: Imaging protocol: Bilateral Screening tomosynthesis and 2D mammography including computer-aided detection (CAD) when performed. COMPARISON: DMSB DIG MAMM-SCREEN LETTY 11/18/2013 8:23 AM FINDINGS: MAMMOGRAPHY: Breast composition: There are scattered areas of fibroglandular density. Mass: None. Architectural distortion: None. Calcifications: No suspicious calcifications. Asymmetric density: None. Skin thickening: None. Axillary adenopathy: None. IMPRESSION: No mammographic evidence of malignancy. Annual screening is recommended unless otherwise clinically indicated. ASSESSMENT: BI-RADS Category 1: Negative.
== END 2025-03-06 23:59 | disposition home or self-care (01) ==
LOC: RAD 15:01
PROVIDERS: PCP Nurse Practitioner Family; Visit Provider Nurse Practitioner Family
DX: Z12.31 Encounter for screening mammogram for malignant neoplasm of breast (principal); R92.323 Mammographic fibroglandular density, bilateral breasts
CPT/HCPCS: 77063; 77067

== ENCOUNTER 2025-03-13 08:53 | Outpatient (CLI) | payer BC, MEDICARE, SELFPAY ==
--- OUTSIDE RECORDS SUMMARY | 2025-02-16 12:00 | XMS_ITS | Encounter Summary ---
Author Organization [facility] Address [address] [place] [address] Care Team Providers Care Billing Rep Name Role Phone Shanda Sands APRN Primary Care Provider [phone] Reason for Referral * MRI/CAT/PET Scan (Routine) - Closed Specialty Diagnoses / Procedures Referred By Faith t Referred To Contact Diagnoses Complaints of leg weakness Procedures MRI Thoracic Spine Without Contrast Mica Brown PA-C [address] [facility] [address] [place] [address] Phone: tel: fax: [facility] - OUTPT PHYSICAL THERAPY [address] [place] [phone] Phone: tel: fax: Referral ID Status Reason Start Date Expiration Date Visits Re quested Visits Authorized [id number] Closed 02/16/2025 05/18/2026 1 1 Reason for [...] Paresthesia of skin Shanda Sands APRN [address] [address] Phone: tel: fax: [facility] [address] [place] [address] Phone: tel: fax: Referral ID Status Reason Start Date Expiration Date V isits Requested Visits Authorized [id number] Pending Review 01/29/2025 04/30/2026 2 2 Encounter Details Date Type Department Care Team (Late st Contact Info) Description 02/16/2025 1:00 PM EDT Office Visit [facility] [address] [facility] [address] [place] [address] Mica Brown PA-C [address] [facility] [address] [facility] [address] [place], [place] [address] Complaints of leg weakness (Primary Dx) Social [...] on file Sexual Orientation Not on file documented as of this encounter Last Filed [...] History: Diagnosis Date Arthritis Cervical disc disorder Guillain-[place] 1990 Headache History of transfusion Lumbosacral disc [...] Nausea or Vomiting., Disp: , Rfl: rizatriptan SOLAR THERMAL TECHNICIAN (MAXALT-SOLAR THERMAL TECHNICIAN) 10 MG disintegrating tablet, DISSOLVE 1 TABLET [...] Primary documented in this encounter Care Teams Billing Rep Relationship Specialty Start Date End Date Shanda Sands APRN [address] [place] [id number] PCP - General Internal Medicine 01/29/25 documented as of this encounter
--- OUTSIDE RECORDS SUMMARY | 2025-03-03 14:00 | XMS_ITS | Encounter Summary ---
Author Organization [facility] Address [address] [place] [address] Care Team Providers Care Steel Construction Worker Name Role Phone Shanda Sands APRN Primary Care Provider [phone] Reason for Referral * Consultation (Routine) - Pending Review Specialty Diagnoses / Procedures Referred By Contac t Referred To Contact Neurology Diagnoses Bilateral leg weakness Complaints of leg weakness Procedures DC OFFICE/OUTPATIENT NEW MODERATE MDM 45 MINUTES Mica Brown PA-C 1760 [facility] [address] [place] [address] Phone: tel: fax: NEUROLOGY CLINIC [address] [place] [address] Phone: tel: fax: Referral ID Status Reason Start Date Expiration Date Visits Requested Visits Authorized [id number] Pending Review Specialty Services Required 03/03/2025 06/02/2026 1 1 Reason for Visit * Reason Comments Extremity Weakness Back Pain Encounter Details Date Type Department Care Team (Late st Contact Info) Description 03/03/2025 2:00 PM EST Office Visit [facility] NEUROSURGERY 1760 [facility] [address] [place] [phone] Mica Brown PA-C 1760 [facility] [address] [place] [address] Bilateral leg weakness (Primary Dx); Complaints of [...] her any lasting relief. She is seen gunsmith apprentice in the past who worked her up [...] Nausea or Vomiting., Disp: , Rfl: rizatriptan COMPATIBILITY TEST ENGINEER (MAXALT-COMPATIBILITY TEST ENGINEER) 10 MG disintegrating tablet, DISSOLVE 1 TABLET IN MOUTH ONCE DAILY NEEDED MAX 8 TABLETS PER MONTH, Disp: , Rfl: Past Medical History: Past Medical History: Diagnosis Date Arthritis Cervical disc disorder Guillain-[place] 1990 Headache History of transfusion Lumbosacral disc [...] weakness documented in this encounter Care Teams Steel Construction Worker Relationship Specialty Start Date End Date Shanda Sands APRN [address] [place] [address] [facility] [place] [address] PCP - General Internal Medicine 01/29/25 documented as of this encounter
--- OUTSIDE RECORDS SUMMARY | 2025-03-13 08:59 | XMS_ITS | Encounter Summary ---
Author Organization [facility] Address [address] [place] [id number] Care Team Providers Care Redrawer Name Role Phone Shanda Sands APRN Primary [...] on file documented as of this encounter Plan of Treatment Not on file documented as of this encounter Visit Diagnoses Not on filedocumented in this encounter Care Teams Redrawer Relationship Specialty Start Date End Date Shanda Sands APRN [address] [place] [address] PCP - General Internal Medicine 01/29/25 documented as of this encounter
--- OUTSIDE RECORDS SUMMARY | 2025-03-13 08:59 | XMS_ITS | Data Portability ---
Author Organization [facility]IZA VICTOR MANUEL [facility] Address [address] [facility] [address] [place] [address] Care Team Providers Care Supervisor Channel Process Name Role Phone Nora RIVERS Primary Care Provider [phone] Assessment No assessment recorded. Plan of Treatment Reminders Order Date Submit Date Provider Last Modified By Organization Details Last Modified Time Details Appointments None recorded. Lab None recorded. Referral None recorded. Procedures None recorded. Surgeries None recorded. Imaging None recorded. Medication Orders rizatript an 10 mg disintegr ating tablet 2024 025 [facility] 591, [address], [address], 16:57:04 Patient TargetsNo targets recorded. Patient Instructions Encounter Date Encounter Id Patient Instructions Last Modified By Organization Details Last Modified Time 07/22/2024 [id number] 1. Audiogram obtained in office today. Results [...] Address Organization Details Recorded Time Neck pain 28681321 Active 2015 From Automated Load;Prov ider: Charity Erwin;S tatus: Active Not Available [facility] 6 04:59:37 Pain of right hand 39695789933 9109 Active 2015 From Automated Load;Prov ider: Charity Erwin;S tatus: Active Not Available [facility] 6 04:59:37 Hand pain 43115093 Active 2015 From Automated Load;Prov ider: Charity Erwin;S tatus: Active Not Available [facility] 6 04:59:37 Finding of sensation by site Active 2015 From Automated Load;Prov ider: Charity Erwin;S tatus: Active Not Available [facility] 6 04:59:37 Headache 06511206 Active 2015 From Automated Load;Prov ider: Charity Erwin;S tatus: Active Not Available [facility] 6 04:59:37 Neuropath y 152357303 Active 2015 From Automated Load;Prov ider: Linsey Gamez;Sta tus: Active Not Available [facility] 6 04:59:37 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 From Automated Load;Prov ider: Linsey Gamez;Sta tus: Active Not Available [facility] 6 04:59:37 Inflammat ory neuropath y 58389929 Active 2015 From Automated Load;Prov ider: Linsey Gamez;Sta tus: Active Not Available [facility] 6 04:59:37 Paresthes ia of skin Active 2015 From Automated Load;Prov ider: Linsey Gamez;Sta tus: Active Not Available [facility] 6 04:59:37 Enzyme level - finding Active 2015 From Automated Load;Prov ider: Charity Erwin;S tatus: Active Not Available [facility] 7 06:35:45 Fibromyal desirae 952999852 Active 2016 CHARITY ERWIN, HOSPITAL COORDINATOR [address] [place], [address] , [facility] 7 11:22:05 Problem Notes None recorded. Procedures Surgical History Date Name Laterality Status Provider Name and Address Organization Details Recorded Time 07/23/19 Tympanogram completed MAGNO EDGAR AUD [address] [place], [address], [facility] 07/22/2024 10:21:52 07/23/19 Audiogram completed MAGNO EDGAR AUD [address] [place], [address], [facility] 07/22/2024 10:21:50 05/31/19 hysterectomy completed Sheba Brand [facility] 07/22/2024 10:24:00 Cholecystectomy completed Maki Chawla [facility] 09/14/2016 11:17:47 Imaging Results None recorded. Procedure Notes None recorded. Medical Equipment None Reported. Allergies Allergen ID Allergen Name Allergen Category Reaction Reaction Severity Criticality Documentation Date Start Date Code Code System Note Provider Name and Address Organization Details Recorded Time 871854 azithromy fady medicatio n hives Not available Not available 03/24/20162015 44929 RxNorm React ion: HIVES ; Comme nt: Creat ed By: John padilla;Ki eated Date: 016 10:10 :57 AM; Not Available [facility] 6 09:49:48 Medications Name Sig Start Date [...] Updated DateTime 5 165.1 cm 30 kg/m2 47549.6 3 g 97.2 [degF] 101 /min 134/98 mm[Hg] Pema Ketty [facility] 5 09:55:41 Date Recorded Body height Body weight Body mass index (BMI) Heart rate Systolic And Diastolic Provider Name and Address Organization Details Last Updated DateTime 09/14/2016 165.1 cm 31806.05 g 27.7 kg/m2 83 /min 95/67 mm[Hg] Makitony Chawla [facility] 7 11:19:06 Social History Question Answer Notes LastModified by Organizat ion Details LastModified Time Tobacco Smoking Status Current Every Day Smoker Makitony Chawla [facility] 09/14/2016 11:17:34 How Many Years Have You [...] Condition Response Allergies/Hayfever Y Esophagus/swallowing troubles Y Arthritis Y Acid Reflux (GERD) Y Gynecological HistoryNo gynecological history recorded. Obstetrics History GPAL:G 0 P 0 0 0 0 Past Encounters Encounter ID Performer Location Encounter Start Date Encounter Closed Date Diagnosis/Indication Diagnosis SNOMED-CT Code Diagnosis ICD10 Code Diagnosis IMO Codes Diagnosis Note [id number] CHARITY ERWIN APRN RHEUMATOL OGY [address] [place] [address] 09/14/2016 10:15:49 09/14/2016 13:57:59 Fibromyalgia 443754400 M79.7 chronic and recurring with pcp management available with dx as pcp recently added neurontin and cyclobenza prinewill initiate diclofenac twice daily and continue on cymbalta 30 mg twice daily due to the ill symptoms she had on 60 mg once daily [id number] MD ALIZA RIVERA [facility]NT [address] [place] [address] 07/22/2024 09:09:13 07/22/2024 11:27:20 Conductive hearing loss of right ear 4008618051 H90.11 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 Migraine 40031250 G43.90 9 [id number] GILDA HOOD ENT [address] [place] [address] 07/22/2024 10:21:29 07/22/2024 10:22:48 Conductive hearing loss of right ear 9111549073 H90.11 Health Concerns Section Related Observation LastModified by Organization Detai ls LastModified Time None Recorded Concern Status LastModified by Organization Details LastModified Time None Recorded Advance Directives Directive None Recorded Payers Insurance Date Sequence Insurance Name Policy Number Policy Scanlon Covered Member ID Scanlon Member ID Guarantor Name 07/26/2024 1 [place] [id number] Harry Rviers [id number] Criss Rivers Notes Date Note Type Note Provider Name and Address Organization Details Recorded Time 09/14/2016 text/html ROS as noted in the HPI no major flare in the interim; started on the denies cp, soa, rash or fever and all others negative CHARITY ERWIN, HOSPITAL COORDINATOR [address] [place], [address], [facility] 09/14/2016 11:38:50 07/22/2024 text/html ROS as noted in the HPI Criss Rivers (48F) visits our office for an evaluation of recurrent ear infection.Criss reports issues with recurrent ear infection for the past 6 or 7 years. She reports tear infections last 6 or 7 yearsantibitoics for the past 5 monasal sprays dont help06/10/24 CT Head ([facility]) - Sinuses clear. Recently, she remains having sinus headaches. She does not tolerate motion sickness. She does have hx of severe migraines in youthTESTING: Audiometric testing was reviewed independently and reveals normal hearing and tympanometry. ELIOT TYLER MD [address] [place], [address], [facility] 07/22/2024 17:15:01 OBGyn Episode No OBEpisode recorded.
--- NOTE | 2025-03-13 09:00 | XR_ITS ---
FINAL REPORT CLINICAL HISTORY: osteoporosis prior 2018 COMPARISON: None available FINDINGS: Using L1-4, the bone mineral density of the spine is 0.749 g/cm2, corresponding to T-score of -2.7. Using the left hip, the bone mineral density of the femoral neck is 0.373 g/cm2, corresponding to a T-score of -4.3. Using the right hip, the bone mineral density of the femoral neck is 0.690 g/cm2, corresponding to a T-score of -1.4. NOTE: T-score: Standard deviation compared with peak bone mass of young adult mean. *Following the recommendations of the International Society of Bone densitometry, classification of hip BMD is based on the lower of two T-scores; total hip or femoral neck. IMPRESSION: Diminished bone mineral density of the right hip consistent with osteopenia. Diminished bone mineral density of the lumbar spine and left hip consistent with osteoporosis. Reviewed, Interpreted and Dictated by Merly Mack MD Transcribed by Nannette Michael Authenticated and . [facility]
--- OUTSIDE RECORDS SUMMARY | 2025-03-13 09:00 | XMS_ITS | Encounter Summary ---
[facility] Address [address] [place] [id number] Care Team Providers Care Singing Teacher Name Role Phone Wicho Shandabalbir VALENZUELA Primary Care Provider + [phone] Reason for Visit * Reason Onset Date Comments MICA RAYA- UPDATED REF FAX NUMBER 03/11/2025 Encounter Details Date Type Department Care Team (Late st Contact Info) Description 03/11/2025 Telephone [facility] [address] [facility] [address] [place], [place] [address] Mica Raya PA-C [address] [facility] [address] [place] [address] MICA RAYA- UPDATED REF FAX NUMBER Social History Tobacco Use Types Packs/Day Years [...] on file documented as of this encounter Miscellaneous Notes * Telephone Encounter - Enedelia Ayers RegSched Rep - 03/11/2025 12:28 PM EST PT CALLED TO LET US KNOW [facility] NEVER RECEIVED REFERRAL. GAVE PT CURRENT FAX NUMBER [phone]. PLEASE REFAX REFERRAL TO CORRECT NUMBER. THANK YOU. documented in this encounter Plan of Treatment Not on file documented as of this encounter Visit Diagnoses Not on filedocumented in this encounter Care Teams Singing Teacher Relationship Specialty Start Date End Date Shanda Sands APRN [address] [place] [address] PCP - General Internal Medicine 01/29/25 documented as of this encounter
--- OUTSIDE RECORDS SUMMARY | 2025-03-13 09:00 | XMS_ITS | Encounter Summary ---
Author Organization [facility] Address [address] [place] [id number] Care Team Providers Care Calcine Furnace Loader Name Role Phone Shanda Sands APRN Primary Care Provider [phone] Encounter Details Date Type Department Care Team [...] on filedocumented in this encounter Care Teams Calcine Furnace Loader Relationship Specialty Start Date End Date Shanda Sands APRN [address] [place] [address] PCP - General Internal Medicine 01/29/25 documented as of this encounter
--- OUTSIDE RECORDS SUMMARY | 2025-03-13 09:00 | XMS_ITS | Clinical Summary ---
Author Organization [facility] Address [address] [place] [address] Care Team Providers Care Airport Operations Supervisor Name Role Phone Shanda Sands APRN Primary Care Provider + [phone] Allergies Active Allergy Reactions Criticality Noted Date [...] for Nausea or Vomiting. 5 Active rizatriptan ORACLE DBA (MAXALT-ORACLE DBA) 10 MG disintegrating tablet DISSOLVE 1 TABLET IN MOUTH ONCE DAILY NEEDED MAX 8 TABLETS PER MONTH 5 Active Active Problems No known active problems Encounters Date Type Department Care Team Description 03/11/2025 Telephone [facility] [address] [address] Mica Brown PA-C SARA STURM- UPDATED REF FAX NUMBER 03/03/2025 2:00 PM EST Office Visit [facility] [address] [facility] [address] [place] [address] Mica Brown PA-C Bilateral leg weakness (Primary Dx); Complaints of leg weakness 03/03/2025 Travel 02/16/2025 1:00 PM EDT Office Visit [facility] [address] [place] [address] Mica Brown PA-C Complaints of leg weakness [...] on file Sexual Orientation Not on file Last Filed Vital Signs Vital Sign Reading [...] Final Resul t * LABS SCANNED (01/04/2025) Result [facility] LAB BLOOD ORDERABLES Final Re sult * IMAGING SCANNED (12/30/2024) Anatomical Region Laterality Modality Radiographic Samantha ging [facility] IMG DIAGNOSTIC IMAGING ORDERA BLES Final Result * EMG SCANNED (12/15/2024) [facility] NEUROLOGY ORDERABLES Final Re sult from Last 3 Months Insurance [facility] PPO MEDICARE A & B Care Teams Airport Operations Supervisor Relationship Specialty Start Date End Date Shanda Sands APRN [facility] [address] [place] [address] PCP - General Internal Medicine 01/29/25
--- OUTSIDE RECORDS SUMMARY | 2025-03-13 09:00 | XMS_ITS | Clinical Summary ---
Author Organization Healthcare Address [address] [place] [address] Care Team Providers Care Winter Sports Manager Name Role Phone Sands, Shanda Fink APRN Primary Care Provider [phone] Social History Tobacco Use Types Packs/Day Years Used Date Smoking Tobacco: Never Assessed Comments Unknown Sex and Gender Information Value Date Recorded Sex Assigned at Not on file Legal Sex Female 8:06 PM EDT Gender Identity Not on file Sexual Orientation Not on file Plan of Treatment Upcoming Encounters Date Type Department Care Team (Late st Contact Info) Description 03/13/2025 3:00 PM EST Consult [place] [facility] [address] [place] [address] Sandra Kern MD [address] [place] [address] Health Maintenance Due Date Last Done Comments [facility]-Depression Screening 1975 [facility]-HIV Screening 1975 [facility]-Hepatitis C Screening 1975 [facility]-Medicare Annual Wellness (AWV) 1975 [facility]-Infant/Child/Adol SDOH Screenings 1975 [facility]- SDOH Screenings 11/21/1993 [facility]-Adult SDOH Screenings 11/21/1993 [facility]-Hepatitis B Vaccines (1 of 3 - 19+ 3-dose series) 11/21/1994 [facility]-Pap Smear 11/21/1996 04/18/1991 [facility]-Cervical Cancer Screening 11/21/2005 [facility]-HPV/Cotest 11/21/2005 04/18/1991 CT Colonography 11/21/2020 Colonoscopy 11/21/2020 FIT-DNA 11/21/2020 FIT 11/21/2020 FOBT 11/21/2020 Sigmoidoscopy 11/21/2020 [facility]-Colorectal Cancer Screening 11/21/2020 JRU-[id number]-22 Vaccine (- season) 2024 [facility]-Influenza Vaccine (#1) 2024 [facility]-Zoster Vaccines (1 of 2) 11/21/2025 [facility]-DTaP,Tdap,and Td Vaccine s (2 - Td or Tdap) 07/11/2030 07/11/2020 HPV Vaccines Aged Out No longer eligi ble based on patient's age to complete this topic [facility]-HIB Vaccines Aged Out No longer e ligible based on patient's age to complete this topic [facility]-Hepatitis A Vaccines Aged Out No longer eligible based on patient's age to complete this topic [facility]-IPV Vaccines Aged Out No longer e ligible based on patient's age to complete this topic [facility]-Pneumococcal Vaccine: Pediatrics (0 to 5 Years) and At-Risk Patients (6 to 49 Years) Aged Out No long er eligible based on patient's age to complete this topic [facility]-Rotavirus Vaccines Aged Out No lo nger eligible based on patient's age to complete this topic Procedures Procedure Name Priority Date/Time Associated Diagnosis Comments CYTO DATA CONVERSION Routine 04/18/1991 12:00 AM EST from Last 3 Months or Most Recently Relevant to Health Maintenance Results * Cytology (04/18/1991 12:00 AM EST) 04/18/1991 04/21/1991 Narrative [facility] - 05/06/1991 12:00 AM EST [facility] MR #: [id number] [facility] DELILAH RIVERS [place], [place] [address] 1975 (Age: 15) FW Collect Date: 04/18/1991 00:00 Receipt Date: 04/21/1991 00:00 Page 1 DEPARTMENT OF PATHOLOGY AND LABORATORY MEDICINE CYTOPATHOLOGY REPORT Email: [email or web address] * Converted Case * This report may not match the original report format ATTENDING MD/Practitioner: Agueda River MD Service: OB Location: Reported: 05/06/1991 00:00 Collected: 04/18/1991 00:00 INTERPRETATION CERVICAL SCRAPE/ENDOCERVICAL BRUSH WITHIN NORMAL LIMITS. SATISFACTORY FOR INTERPRETATION. Electronically Signed Out WILLY Villarreal (ASC) Mima Smith MD Cervical cytology is a screening test primarily for squamous cancers and precursors and has associated false negative and positive results. New technologies such as liquid based sampling may decrease but will not eliminate all false negative results. Regular screening and follow-up of unexplained clinical signs and symptoms are recommended to minimize false negative results. Please see the ASCCP website (www.asccp.org) for followup recommendations. If HPV testing was requested, correlation with the results is suggested (please call Microbiology at [phone] for results). CLINICAL INFORMATION: Menstrual History: {Not Provided} Date of Last Menstrual Period: {Not Provided} PAP SMEAR PERFORMED BY SPECIMEN DESCRIPTION: A: CERVICAL/VAGINAL SMEAR, PAP ICD: F: {Not Entered} SNOMED CODES: 1; [id number] [id number] L64218 In cases where a pathologist has signed out the report, the service has been rendered in part by a resident. The signing pathologist has performed and is responsible for the reported pathologic evaluation. us Historical Provider LAB PATHOLOGY ORDERABLES Fin al Result [facility] from Last 3 Months or Most Recently Relevant to Health Maintenance [place] [address] Care Teams Winter Sports Manager Relationship Specialty Start Date End Date Shanda Sands APRN [address] [place] [address] PCP - General 03/12/25
== END 2025-03-13 23:59 | disposition home or self-care (01) ==
LOC: RAD 08:54
PROVIDERS: PCP Nurse Practitioner Family; Visit Provider Nurse Practitioner Family
DX: M81.0 Age-related osteoporosis without current pathological fracture (principal)
CPT/HCPCS: 77080

== ENCOUNTER 2025-03-30 16:44 | Outpatient (CLI) | payer BC, MEDICARE, SELFPAY ==
--- OUTSIDE RECORDS SUMMARY | 2025-02-16 12:00 | XMS_ITS | Encounter Summary ---
Author Organization [facility] Address [address] [place] [address] Care Team Providers Care Insurance Account Specialist Name Role Phone Shanda Sands APRN Primary Care Provider [phone] Reason for Referral * MRI/CAT/PET Scan (Routine) - Closed Specialty Diagnoses / Procedures Referred By Faith t Referred To Contact Diagnoses Complaints of leg weakness Procedures MRI Thoracic Spine Without Contrast Mica Brown PA-C 1760 [facility] [address] [place] [address] Phone: tel: fax: [facility] - OUTPT PHYSICAL THERAPY [address] [place] [phone] Phone: tel: fax: Referral ID Status Reason Start Date Expiration Date Visits Re quested Visits Authorized [id number] Closed 02/16/2025 05/18/2026 1 1 Reason for [...] Paresthesia of skin Shanda Sands APRN [address] [address] Phone: tel: fax: [facility] [address] [place] [address] Phone: tel: fax: Referral ID Status Reason Start Date Expiration Date V isits Requested Visits Authorized [id number] Pending Review 01/29/2025 04/30/2026 2 2 Encounter Details Date Type Department Care Team (Late st Contact Info) Description 02/16/2025 1:00 PM EDT Office Visit [facility] [address] [facility] [address] [place] [address] Mica Brown PA-C 1760 [facility] [address] [place], [place] [id number] Complaints of leg weakness (Primary Dx) Social [...] History: Diagnosis Date Arthritis Cervical disc disorder Guillain-[place] 1990 Headache History of transfusion Lumbosacral disc [...] Nausea or Vomiting., Disp: , Rfl: rizatriptan COOK CHILL TECHNICIAN (MAXALT-COOK CHILL TECHNICIAN) 10 MG disintegrating tablet, DISSOLVE 1 [...] Primary documented in this encounter Care Teams Insurance Account Specialist Relationship Specialty Start Date End Date Shanda Sands APRN [address] [place] [id number] PCP - General Internal Medicine 01/29/25 documented as of this encounter
--- OUTSIDE RECORDS SUMMARY | 2025-03-03 14:00 | XMS_ITS | Encounter Summary ---
Author Organization [facility] Address [address] [place] [address] Care Team Providers Care Logging Supervisor Name Role Phone Shanda Sands APRN Primary Care Provider [phone] Reason for Referral * Consultation (Routine) - Pending Review Specialty Diagnoses / Procedures Referred By Contac t Referred To Contact Neurology Diagnoses Bilateral leg weakness Complaints of leg weakness Procedures NC OFFICE/OUTPATIENT NEW MODERATE MDM 45 MINUTES Mica Brown PA-C [address] [facility] [address] [place] [address] Phone: tel: fax: NEUROLOGY CLINIC [address] [place] [address] Phone: tel: fax: Referral ID Status Reason Start Date Expiration Date Visits Requested Visits Authorized [id number] Pending Review Specialty Services Required 03/03/2025 06/02/2026 1 1 Reason for Visit * Reason Comments Extremity Weakness Back Pain Encounter Details Date Type Department Care Team (Late st Contact Info) Description 03/03/2025 2:00 PM EST Office Visit [facility] NEUROSURGERY 17[address] [facility] [address] [place] [id number] Mica Brown PA-C [address] [facility] [address] [place] [address] Bilateral leg weakness (Primary Dx); Complaints of leg weakness Social History Tobacco Use Types Packs/Day Years [...] Pressure - - Pulse - - Temperature 36.1 C (96.9 F) 03/03/2025 1:47 PM EST Respiratory Rate - - Oxygen Saturation - - Inhaled Oxygen Concentration - - Weight 89.6 kg (197 lb 9.6 oz) 03/03/2025 1:47 P M EST Height 165.1 cm (5' 5 ) 03/03/2025 1:47 PM EST Body Mass Index 32.88 03/03/2025 1:47 PM EST documented in this encounter Progress Notes * Mica Brown PA-C - 03/03/2025 2:00 PM EST Name: Criss Benoit : 1975 Primary Care Provider: Shanda Sands APRN Chief Complaint Extremity Weakness and Back Pain History of Present Illness: Criss Benoit is a 49 y.o. female who presents to the clinic today for follow up regarding progressively worsening chronic low back pain with pain radiating bilaterally down her legs, right worse than left. Today, she does not describe any specific dermatomal pattern and feels that it is her whole legs bilaterally. She states she has had frequent falls as her right leg gives out from underneath her. She also reports numbness and tingling. She states over the last year, she has had some dribbling episodes though denies any full bladder loss or overt incontinence. She has tried physical therapy in the past as well as injections. She states the injections helped for a little bit however did not give her any lasting relief. She is seen hearth feeder in the past who worked her up for an autoimmune disorder and started on medications however she is unaware of any diagnoses. She is also followed with a neurologist in the past though her provider moved therefore she has not been established with anybody since. PMHX Allergies: Allergies Allergen Reactions Azithromycin Hives Medications Current Outpatient Medications: CeleBREX 200 MG capsule, , Disp: , Rfl: DULoxetine (CYMBALTA) 60 MG capsule, TAKE 1 CAPSULE BY MOUTH TWICE DAILY FOR DEPRESSION, Disp: , Rfl: furosemide (LASIX) 20 MG tablet, , Disp: , Rfl: levocetirizine (XYZAL) 5 MG tablet, , Disp: , Rfl: methocarbamol (ROBAXIN) 750 MG tablet, , Disp: , Rfl: pregabalin (LYRICA) 100 MG capsule, , Disp: , Rfl: primidone (MYSOLINE) 50 MG tablet, , Disp: , Rfl: promethazine (PHENERGAN) 25 MG tablet, Take 1 tablet by mouth Every 6 (Six) Hours As Needed for Nausea or Vomiting., Disp: , Rfl: rizatriptan TYPEWRITER RIBBON WINDER (MAXALT-TYPEWRITER RIBBON WINDER) 10 MG disintegrating tablet, DISSOLVE 1 TABLET IN MOUTH ONCE DAILY NEEDED MAX 8 TABLETS PER MONTH, Disp: , Rfl: Past Medical History: Past Medical History: Diagnosis Date Arthritis Cervical disc disorder Guillain-[place] 1990 Headache History of transfusion Lumbosacral disc disease Peripheral neuropathy Past Surgical History: History reviewed. No pertinent surgical history. Social Hx: Social History Tobacco Use Smoking status: Every Day Current packs/day: 1.00 Average packs/day: 1 pack/day for 30.0 years (30.0 ttl pk-yrs) Types: Cigarettes Passive exposure: Current Smokeless tobacco: Never Vaping Use Vaping status: Never Used Substance Use Topics Alcohol use: Never Drug use: Never Family Hx: Family History Problem Relation Name Age of Onset Hypertension Mother Arthritis Mother Hypertension Father Arthritis Father Review of Systems: Review of Systems Constitutional: Negative for activity change, appetite change, chills, diaphoresis, fatigue, fever and unexpected weight change. HENT: Negative for congestion, dental problem, drooling, ear discharge, ear pain, facial swelling, hearing loss, mouth sores, nosebleeds, postnasal drip, rhinorrhea, sinus pressure, sinus pain, sneezing, sore throat, tinnitus, trouble swallowing and [...] Negative for decreased urine volume, difficulty urinating, dyspareunia, dysuria, enuresis, flank pain, frequency, genital sores, hematuria, menstrual problem, pelvic pain, urgency, vaginal bleeding, vaginal discharge and vaginal pain. Musculoskeletal: Positive for back pain. Negative for arthralgias, gait problem, joint swelling, myalgias, neck pain and neck stiffness. Skin: Negative for color change, pallor, rash and wound. Allergic/Immunologic: Negative for environmental allergies, food allergies and immunocompromised state. Neurological: Positive for weakness. Negative for dizziness, tremors, seizures, syncope, facial asymmetry, speech difficulty, light-headedness, numbness and headaches. Hematological: Negative for adenopathy. Does not bruise/bleed easily. Psychiatric/Behavioral: Negative for agitation, behavioral problems, confusion, decreased concentration, dysphoric mood, hallucinations, self-injury, sleep disturbance and suicidal ideas. The patientis not nervous/anxious and is not hyperactive. Vital Signs: Temp 96.9 ??F (36.1 ??C) (Infrared) Ht 165.1 cm (65 ) Wt 89.6 kg (197 lb 9.6 oz) BMI 32.88 kg/m?? Physical Exam Awake, alert and oriented x 3 Speech f/c Pupils 3 mm rx bilaterally EOM intact bilaterally Face symmetric bilaterally 5/5 in bilateral lower extremities Social History Tobacco Use Smoking status: Every Day Packs/day: 1.00 Years: 1 pack/day for 30.0 years (30.0 ttl pk-yrs) Types: Cigarettes Passive exposure: Current Smokeless tobacco: Never Tobacco Use: High Risk (03/03/2025) Patient History Smoking Tobacco Use: Every Day Smokeless Tobacco Use: Never Passive Exposure: Current STEADI Fall Risk Assessment has not been completed. Diagnostic Studies: (All imaging is independently reviewed unless stated otherwise.) MRI lumbar spine and thoracic spine show no evidence of high-grade central canal neuroforaminal narrowing Assessment/Plan Diagnoses and all orders for this visit: 1. Bilateral leg weakness (Primary) - Ambulatory Referral to Neurology 2. Complaints of leg weakness - Ambulatory Referral to Neurology This is a 49-year-old female who presents for follow-up regarding back and bilateral leg pain as well as intermittent giving out of her legs. 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 Clinically, she has full strength bilateral lower extremities. MRI lumbar and thoracic spine show noevidence of a high-grade central canal neuroforaminal narrowing. She does not describe any specificdermatomal pattern for her leg pain. I do think the best course would be for her to follow-up with a neurologist for further evaluation of her polyneuropathy. I also recommend continued follow-up with pain management outpatient. They have discussed possible spinal cord stimulator which I think would not be unreasonable. Since there is no role for surgery, I do not see a role for formal follow-up.She can call the office with any new or worsening issues though would defer to neurology further workup of her neuropathy. Patient encouraged to contact us if she has any questions or concerns. Any copied data from previous notes included in the (1) HPI, (2) PE, (3) MDM and/or Assessment and Plan has been reviewed and accurate as of 03/03/25. Mica Brown PA-C 03/03/25 I spent at least 30 minutes caring for Criss Benoit on 03/03/25. This time includes activities preparing for the visit, reviewing test, reviewing history and performing an appropriate examination. Discussing with the patient and reviewing and independently interpreting the diagnostic studies,communicating that information to the patient along with discussing care coordination and referralsif needed and documenting information in the medical records. documented in this encounter Plan of Treatment Not on file documented as of this encounter Visit Diagnoses Diagnosis Bilateral leg weakness- Primary Muscle weakness (generalized) Complaints of leg weakness documented in this encounter Care Teams Logging Supervisor Relationship Specialty Start Date End Date Shanda Sands APRN [address] [place] [address] [facility] [place] [address] PCP - General Internal Medicine 01/29/25 documented as of this encounter
--- OUTSIDE RECORDS SUMMARY | 2025-03-13 15:00 | XMS_ITS | Encounter Summary ---
Author Organization Healthcare Address [address] [place] [address] Care Team Providers Care Sound Designer Name Role Phone Shanda Sands BIANCA Primary Care Provider +1- [phone] Reason for Referral * Imaging (Routine) - Pending Review Specialty Diagnoses / Procedures Referred By Contac t Referred To Contact Radiology Diagnoses CIDP (chronic inflammatory demyelinating polyneuropathy) (CMS/HCC) Procedures Interventional Radiology (>30 BMI) Sandra Kern MD [address] [address] Phone: tel: fax: Referral ID Status Reason Start Date Expiration Date V isits Requested Visits Authorized [id number] Pending Review 03/13/2025 09/12/2026 1 1 * Imaging (Routine) - Pending Review Specialty Diagnoses / Procedures Referred By Contac t Referred To Contact Radiology Diagnoses CIDP (chronic inflammatory demyelinating polyneuropathy) ([facility]/HCC) Procedures CT Head wo IV Contrast Sandra Kern MD [address] [address] Phone: tel: fax: Referral ID Status Reason Start Date Expiration Date V isits Requested Visits Authorized [id number] Pending Review 03/13/2025 09/12/2026 1 1 Reason for Visit * Consultation (Routine) - Closed Specialty Diagnoses / Procedures Referred By Faith t Referred To Contact Neurology Diagnoses Bilateral leg weakness Complaints of leg weakness Lower back pain Polyneuropathy System, Provider Not In, [place] [address] Referral ID Status Reason Start Date Expiration Date V isits Requested Visits Authorized [id number] Closed Specialty Services Required 03/11/2025 09/10/2026 1 1 Encounter Details Date Type Department Care Team (Late st Contact Info) Description 03/13/2025 3:00 PM EST Consult [place] [facility] [address], [address] [place] [address] Sandra Kern MD [address] [place] [address] CIDP (chronic inflammatory demyelinating polyneuropathy) ([facility]) (Primary Dx) Social History Tobacco Use Types Packs/Day Years Used Date Smoking Tobacco: Every Day Cigarettes 1 30 Started: 03/13/1995 Tobacco Cessation:Ready to Q uit: Not Asked; Counseling Given: Not Answered Alcohol Use Standard Drinks/Week Comments Never 0 [...] Sign Reading Time Taken Comments Blood Pressure 110/74 03/13/2025 3:17 PM EST Pulse 117 03/13/2025 3:17 PM EST Temperature - - Respiratory Rate - - Oxygen Saturation 92% 03/13/2025 3:17 PM EST Inhaled Oxygen Concentration - - Weight 91.6 kg (201 lb 15.1 oz) 03/13/2025 3:17 PM EST Height - - Body Mass Index - - documented in this encounter Miscellaneous Notes * Progress Notes - Sandra Kern MD - 03/13/2025 3:00 PM EST Neuromuscular Neurology Consult Chief complaint: Progressive lower limb weakness and numbness Referring provider: System, Provider Not In, Subjective History of Present Illness Criss Benoit is a 49 y.o. female with progressive lower limb weakness and numbness for the past 2years. 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 She was discharged unable to walk Bharat gained the ability to crawl after delivering her baby. She rapidly regained the ability to walk, but never returned to neurologic baseline. 2022: Patient is generally well until 2022 when she developed recurrent symptoms similar to what she experienced previously with Guillain-Lakeview syndrome. She developed unexplained acute back pain with numbness of the proximal lower limbs and pelvis and asymmetric weakness of the lower limbs and mild autonomic dysfunction. Symptoms have been progressing over the past 2 years. EMG suggested axonaland demyelinating polyneuropathy although the are some features on my review to suggest radicular neuropathy. MRI of the lumbosacral spine did not show evidence of any enhancement. She has not received treatment. Review of systems Patient denies all review of systems except as mentioned in HPI above. Medical History Problem List[1] Treatment History Primidone Pregabalin Methocarbamol Duloxetine Family History Reviewed with patient. No relevant history. Social History Reviewed with patient. No relevant history. Objective Workup Studies from available current and prior visits were reviewed and interpreted by myself as below. EMG Outside EMG demonstrated axonal and demyelinating polyneuropathy with patient's of radiculopathy onmy review. Labs Outside lab work unavailable Imaging Patient showed me the MRI report on her DigitalMR kenna. per report, there is no evidence of lumbosacral root enhancement. Physical Examination Visit Vitals BP 110/74 Pulse (!) 117 Wt 91.6 kg (201 lb 15.1 oz) SpO2 92% Smoking Status Every Day Neurological Exam Mental Status Awake, alert and oriented to person, place and time. Cranial Nerves CN I: Sense of smell is normal. Motor Right tibialis anterior -1 Right peronei-1 Right toe sdyibfp-lbvydiozn-6 Left EHL -4 with evidence of trauma Left toe pvesbrh-jfxxtfxwi-6 Left TA and peroneus -3.5. Sensory Sensation is intact to light touch, pinprick, vibration and proprioception in all four extremities. Reflexes -1 upper limbs -4 lower limbs. Coordination Wnnugm-ge-gjhp, rapid alternating movements and kuhs-vo-htrv normal bilaterally without dysmetria. Gait Bilateral footdrop, worse on the left able to stand on toes Slightly wide-based gait with forward lean. Assessment and Plan Criss Benoit is a 49 y.o. 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 I will obtain lumbar puncture as well as routine labs for evaluation for inflammatory neuropathy, then start her on IVIG. Recommendations Workup Lab work is ordered CT head to rule out elevated intracranial pressure compared to LP IR lumbar puncture due to BMI 33. CSF labs ordered. Treatment Plan start patient on trial of IVIG unless workup suggests diagnosis alternative to CIDP. Follow up In 6 weeks Criss Benoit was counseled regarding instructions for management. Education was provided via verbal counseling. Additional time was spent in care coordination including medical record review. The total time of encounter was 53 minutes and greater than 50% of the visit was spent in counseling/coordination of care. Fifi Hogan Zinc Plating Machine Operator of Neuromuscular Neurology [facility] [1] There is no problem list on file for this patient. documented in this encounter Plan of Treatment Upcoming Encounters Date Type Department Care Team (Late st Contact Info) Description 04/24/2025 1:00 PM EST Office Visit [place] [facility] [address] [place] [address] Sandra Kern MD [address] [place] [address] Scheduled Orders Name Type Priority Associated Diagnoses Orde r Schedule Cryoglobulin, Serum (SO) Lab Routine CIDP (chronic inflammatory demyelinating polyneuropathy) ([facility]) Expected: 03/13/2025 (Approximate), Expires: 09/14/2026 Comprehensive Metabolic Panel, Plasma Lab Routine CIDP (chronic inflammatory demyelinating polyneuropathy) ([facility]) Expected: 03/13/2025 (Approximate), Expires: 09/10/2026 Ceruloplasmin Lab Routine CIDP (chronic inflammatory demyelinating polyneuropathy) ([facility]) Expected: 03/13/2025 (Approximate), Expires: 09/14/2026 Copper, Serum or Plasma Lab Routine CIDP (chronic inflammatory demyelinating polyneuropathy) ([facility]) Expected: 03/13/2025 (Approximate), Expires: 03/13/2026 ANCA Vasculitis Profile Lab Routine CIDP (chronic inflammatory demyelinating polyneuropathy) ([facility]) Expected: 03/13/2025 (Approximate), Expires: 09/14/2026 Antinuclear Antibody (GAURAV), HEp-2, IgG Lab Routine CIDP (chronic inflammatory demyelinating polyneuropathy) ([facility]) Expected: 03/13/2025 (Approximate), Expires: 09/14/2026 CBC and Differential Lab Routine CIDP (chronic inflammatory demyelinating polyneuropathy) ([facility]) Expected: 03/13/2025 (Approximate), Expires: 09/10/2026 C-Reactive Protein, Plasma Lab Routine CIDP (chronic inflammatory demyelinating polyneuropathy) ([facility]) Expected: 03/13/2025 (Approximate), Expires: 09/14/2026 Vitamin B12, Serum Lab Routine CIDP (chronic inflammatory demyelinating polyneuropathy) ([facility]) Expected: 03/13/2025 (Approximate), Expires: 09/10/2026 Vitamin B1 (Thiamine), Whole Blood Lab Routine CIDP (chronic inflammatory demyelinating polyneuropathy) ([facility]) Expected: 03/13/2025 (Approximate), Expires: 09/14/2026 Protein electrophoresis, serum Lab Routine CIDP (chronic inflammatory demyelinating polyneuropathy) ([facility]) Expected: 03/13/2025 (Approximate), Expires: 09/10/2026 [place] Lambda Quant Free Light Chains w/Ratio Lab Routine CIDP (chronic inflammatory demyelinating polyneuropathy) ([facility]) Expected: 03/13/2025 (Approximate), Expires: 09/14/2026 Immunofixation Electrophoresis Lab Routine CIDP (chronic inflammatory demyelinating polyneuropathy) ([facility]) Expected: 03/13/2025 (Approximate), Expires: 09/14/2026 SSB (La) (SOPHY) Antibody, IgG Lab Routine CIDP (chronic inflammatory demyelinating polyneuropathy) ([facility]) Expected: 03/13/2025 (Approximate), Expires: 09/14/2026 SSA 52 and 60 (Ro) (SOPHY) Antibodies, IgG Lab Routine CIDP (chronic inflammatory demyelinating polyneuropathy) ([facility]) Expected: 03/13/2025 (Approximate), Expires: 09/14/2026 [place] (SOPHY) Antibody, IgG Lab Routine CIDP (chronic inflammatory demyelinating polyneuropathy) ([facility]) Expected: 03/13/2025 (Approximate), Expires: 09/14/2026 Sedimentation Rate, Automated Lab Routine CIDP (chronic inflammatory demyelinating polyneuropathy) ([facility]) Expected: 03/13/2025 (Approximate), Expires: 09/14/2026 Hemoglobin A1c Lab Routine CIDP (chronic inflammatory demyelinating polyneuropathy) ([facility]) Expected: 03/13/2025 (Approximate), Expires: 09/14/2026 CT Head wo IV Contrast Imaging Routine CIDP (chronic inflammatory demyelinating polyneuropathy) ([facility]) Expected: 03/13/2025 (Approximate), Expires: 09/14/2026 CBC and Differential Lab Routine CIDP (chronic inflammatory demyelinating polyneuropathy) ([facility]) Expected: 03/13/2025 (Approximate), Expires: 09/14/2026 CSF Panel Lab Routine CIDP (chronic inflammatory demyelinating polyneuropathy) ([facility]) Expected: 03/13/2025 (Approximate), Expires: 09/14/2026 Prothrombin Time/INR Lab Routine CIDP (chronic inflammatory demyelinating polyneuropathy) ([facility]) Expected: 03/13/2025 (Approximate), Expires: 09/14/2026 Interventional Radiology (>30 BMI) Imaging Routine CIDP (chronic inflammatory demyelinating polyneuropathy) ([facility]) Expected: 03/13/2025, Expires: 09/14/2026 documented as of this encounter Visit Diagnoses Diagnosis CIDP (chronic inflammatory demyelinating polyneuropathy) ([facility])- Primary Chronic inflammatory demyelinating polyneuritis documented in this encounter Additional Health Concerns Assessment Noted Time A fall risk assessment has been complete d for the patient 03/13/2025 3:17 PM EST A Body Mass Index follow-up plan has been documented for the patient 03/13/2025 7:16 PM EST documented as of this encounter Care Teams Sound Designer Relationship Specialty Start Date End Date Shanda Sands APRN [address] [place] [address] PCP - General 03/12/25 documented as of this encounter
[2025-03-30 14:11] LABS: Coronavirus 19, PCR Not Detected (NotDetected); Influenza A, PCR Not Detected (NotDetected); Influenza B, PCR Not Detected (NotDetected)
--- OUTSIDE RECORDS SUMMARY | 2025-03-30 16:48 | XMS_ITS | Encounter Summary ---
Author Organization Healthcare Address [address] [place] [address] Care Team Providers Care Furniture And Bedding Inspector Name Role Phone Shanda Sands BIANCA Primary Care Provider +1- [phone] Encounter Details Date Type Department Care Team (Late st Contact Info) Description 12/30/2024 Orders Only External Location [address] [place] [address] Provider, External Social History Tobacco Use Types Packs/Day Years [...] Visit [place] [facility] [address], [address] [place] [address] Sandra Kern MD [address] [place] [address] documented as of this encounter Procedures Procedure Name Priority Date/Time Associated Diagnosis Comments MR NEURO OUTSIDE IMAGES 12/30/2024 1:04 PM EDT documented in this encounter Results * MR NEURO OUTSIDE IMAGES (12/30/2024 1:04 PM EDT) Anatomical Region Laterality Modality Magnetic Resonan ce 12/30/2024 1:04 PM EDT us External Provider IMG MRI PROCEDURES Final Resul t documented in this encounter Visit Diagnoses Not on filedocumented in this encounter Care Teams Furniture And Bedding Inspector Relationship Specialty Start Date End Date Shanda Sands APRN [address] [place] [address] PCP - General 03/12/25 documented as of this encounter
--- OUTSIDE RECORDS SUMMARY | 2025-03-30 16:48 | XMS_ITS | Encounter Summary ---
Author Organization Healthcare Address [address] [place] [address] Care Team Providers Care Material Lister Name Role Phone Shanda Sands BIANCA Primary Care Provider +1- [phone] Encounter Details Date Type Department Care Team (Late st Contact Info) Description 02/27/2025 Orders Only External Location [address] [place] [address] Provider, External Social History Tobacco Use Types [...] Visit [place] [facility] [address], [address] [place] [address] Sandra Kern MD [address] [place] [address] documented as of this encounter Procedures Procedure Name Priority Date/Time Associated Diagnosis Comments MR THORACIC OUTSIDE IMAGES 02/27/2025 2:41 PM EDT documented in this encounter Results * MR THORACIC OUTSIDE IMAGES (02/27/2025 2:41 PM EDT) Anatomical Region Laterality Modality Magnetic Resonan ce 02/27/2025 2:41 PM EDT us External Provider IMG MRI PROCEDURES Final Resul t documented in this encounter Visit Diagnoses Not on filedocumented in this encounter Care Teams Material Lister Relationship Specialty Start Date End Date Shanda Sands APRN [address] [place] [address] PCP - General 03/12/25 documented as of this encounter
--- OUTSIDE RECORDS SUMMARY | 2025-03-30 16:48 | XMS_ITS | Data Portability ---
Author Organization [facility]CTOR [facility] [place] Address [address] [place] [address] Care Team Providers Care Wrapping Clerk Name Role Phone Nora RIVERS Primary Care Provider Assessment No assessment recorded. Plan of Treatment Reminders Order Date Submit Date Provider Last Modified By Organization Details Last Modified Time Details Appointments None recorded. Lab None recorded. Referral None recorded. Procedures None recorded. Surgeries None recorded. Imaging None recorded. Medication Orders rizatript an 10 mg disintegr ating tablet 2024 025 [facility], [address], [address], 16:57:04 Patient TargetsNo targets recorded. Patient Instructions Encounter Date Encounter Id Patient Instructions Last Modified By Organization Details Last Modified Time 07/22/2024 [id number] 1. Audiogram obtained in office today. Results [...] Address Organization Details Recorded Time Neck pain 08245242 Active 2015 From Automated Load;Prov ider: Charity Erwin;S tatus: Active Not Available [facility] 6 04:59:37 Pain of right hand 96797127888 9109 Active 2015 From Automated Load;Prov ider: Charity Erwin;S tatus: Active Not Available [facility] 6 04:59:37 Hand pain 24349156 Active 2015 From Automated Load;Prov ider: Charity Erwin;S tatus: Active Not Available [facility] 6 04:59:37 Finding of sensation by site Active 2015 From Automated Load;Prov ider: Charity Erwin;S tatus: Active Not Available [facility] 6 04:59:37 Headache 90833128 Active 2015 From Automated Load;Prov ider: Charity Erwin;S tatus: Active Not Available [facility] 6 04:59:37 Neuropath y 853755586 Active 2015 From Automated Load;Prov ider: Linsey Gamez;Sta tus: Active Not Available [facility] 6 04:59:37 Polyneuro celeste 92611955 Active 2015 From Automated Load;Prov ider: Linsey Gamez;Sta tus: Active Not Available [facility] 6 04:59:37 Inflammat ory neuropath y 32891603 Active 2015 From Automated Load;Prov ider: Linsey Gamez;Sta tus: Active Not Available [facility] 6 04:59:37 Paresthes ia of skin Active 2015 From Automated Load;Prov ider: Linsey Gamez;Sta tus: Active Not Available [facility] 6 04:59:37 Enzyme level - finding Active 2015 From Automated Load;Prov ider: Charity Erwin;S tatus: Active Not Available [facility] 7 06:35:45 Fibromyal desirae 228130274 Active 2016 CHARITY ERWIN, MACHINE CAGE MAKER [address] [place], [address] , [facility] 7 11:22:05 Problem Notes None recorded. Procedures Surgical History Date Name Laterality Status Provider Name and Address Organization Details Recorded Time 07/23/19 Tympanogram completed MAGNO EDGAR AUD [address] [place], [address], [facility] 07/22/2024 10:21:52 07/23/19 Audiogram completed MAGNO EDGAR AUD [address] [place], [address], [facility] 07/22/2024 10:21:50 05/31/19 hysterectomy completed Sheba Brand [facility] 07/22/2024 10:24:00 Cholecystectomy completed Maki Chawla [facility] 09/14/2016 11:17:47 Imaging Results None recorded. Procedure Notes None recorded. Medical Equipment None Reported. Allergies Allergen ID Allergen Name Allergen Category Reaction Reaction Severity Criticality Documentation Date Start Date Code Code System Note Provider Name and Address Organization Details Recorded Time 729918 azithromy fady medicatio n hives Not available Not available 03/24/20162015 77037 RxNorm React ion: HIVES ; Comme nt: Creat ed By: John padilla;Ki eated Date: 016 10:10 :57 AM; Not Available [facility] 6 09:49:48 Medications Name Sig Start [...] Updated DateTime 5 165.1 cm 30 kg/m2 10769.6 3 g 97.2 [degF] 101 /min 134/98 mm[Hg] Pema Ketty [facility] 5 09:55:41 Date Recorded Body height Body weight Body mass index (BMI) Heart rate Systolic And Diastolic Provider Name and Address Organization Details Last Updated DateTime 09/14/2016 165.1 cm 65873.05 g 27.7 kg/m2 83 /min 95/67 mm[Hg] Makitony Chawla [facility] 7 11:19:06 Social History Question Answer Notes LastModified by Organizat ion Details LastModified Time Tobacco Smoking Status Current Every Day Smoker Makitony Chawla [facility] 09/14/2016 11:17:34 How Many Years Have [...] ICD10 Code Diagnosis IMO Codes Diagnosis Note [id number] CHARITY ERWIN APRN RHEUMATOL OGY [address] [place] [address] 09/14/2016 10:15:49 09/14/2016 13:57:59 Fibromyalgia 103877068 M79.7 chronic and recurring with pcp management available with dx as pcp recently added neurontin and cyclobenza prinewill initiate diclofenac twice daily and continue on cymbalta 30 mg twice daily due to the ill symptoms she had on 60 mg once daily [id number] MD ALIZA RIVERA [facility] [address] [place] [address] 07/22/2024 09:09:13 07/22/2024 11:27:20 Conductive hearing loss of right ear 0214194537 H90.11 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 Migraine 93768986 G43.90 9 [id number] GILDA HOOD ENT [address] [place] [address] 07/22/2024 10:21:29 07/22/2024 10:22:48 Conductive hearing loss of right ear 6302182177 H90.11 Health Concerns Section Related Observation LastModified by Organization Detai ls LastModified Time None Recorded Concern Status LastModified by Organization Details LastModified Time None Recorded Advance Directives Directive None Recorded Payers Insurance Date Sequence Insurance Name Policy Number Policy Scanlon Covered Member ID Scanlon Member ID Guarantor Name 07/26/2024 1 [employer] [id number] Harry Rivers [id number] Criss Rivers Notes Date Note Type Note Provider Name and Address Organization Details Recorded Time 09/14/2016 text/html ROS as noted in the HPI no major flare in the interim; started on the denies cp, soa, rash or fever and all others negative CHARITY ERWIN, MACHINE CAGE MAKER [address] [place], [address], [facility] 09/14/2016 11:38:50 07/22/2024 text/html ROS as noted in the HPI Criss Rivers (48F) visits our office for an evaluation of recurrent ear infection.Criss reports issues with recurrent ear infection for the past 6 or 7 years. She reports tear infections last 6 or 7 yearsantibitoics for the past 5 monasal sprays dont help06/10/24 CT Head ([facility]) - Sinuses clear. Recently, she remains having sinus headaches. She does not tolerate motion sickness. She does have hx of severe migraines in youthTESTING: Audiometric testing was reviewed independently and reveals normal hearing and tympanometry. ELIOT TYLER MD [address] [place], [address], [facility] 07/22/2024 17:15:01 OBGyn Episode No OBEpisode recorded.
--- OUTSIDE RECORDS SUMMARY | 2025-03-30 16:48 | XMS_ITS | Clinical Summary ---
Author Organization [facility] Address [address] [place] [address] Care Team Providers Care Steel Die Printer Name Role Phone Shanda Sands APRN Primary Care Provider + [phone] Allergies Active Allergy Reactions Criticality Noted Date [...] for Nausea or Vomiting. 5 Active rizatriptan PAYROLL TAX ANALYST (MAXALT-PAYROLL TAX ANALYST) 10 MG disintegrating tablet DISSOLVE 1 TABLET IN MOUTH ONCE DAILY NEEDED MAX 8 TABLETS PER MONTH 5 Active Active Problems No known active problems Encounters Date Type Department Care Team Description 03/11/2025 Telephone [facility] NEUROS[facility]ERY [address] [address] Mica Brown PA-C SARA STURM- UPDATED REF FAX NUMBER 03/03/2025 2:00 PM EST Office Visit [facility] NEUR[facility]ERY [address] [facility] [address] [place] [address] Mica Brown PA-C Bilateral leg weakness (Primary Dx); Complaints of leg weakness 03/03/2025 Travel 02/16/2025 1:00 PM EDT Office Visit [facility] NEUR[facility]ERY [address] [place] [address] Mica Brown PA-C Complaints of leg weakness [...] 00 AM EDT SCANNED - IMAGING 12/30/2024 from Last 3 Months Results * MRI Outside Films (02/27/2025 12:00 AM EDT) Only the most recent of2 resultswithin the time period is included. Narrative SYSTEMGENERATED, DOCUMENTATION - 03/03/2025 1:51 PM EST This procedure was auto-finalized with no dictation required. Mica Brown PA-C IMG MRI ORDERABLES Final Resul t * LABS SCANNED (01/04/2025) [facility] LAB BLOOD ORDERABLES Final Re sult * IMAGING SCANNED (12/30/2024) Anatomical Region Laterality Modality Radiographic Samantha ging [facility] IMG DIAGNOSTIC IMAGING ORDERA BLES Final Result from Last 3 Months Insurance [facility] PPO MEDICARE A & B Care Teams Steel Die Printer Relationship Specialty Start Date End Date Shanda Sands APRN [address] [place], [place] [address] [id number] PCP - General Internal Medicine 01/29/25
--- OUTSIDE RECORDS SUMMARY | 2025-03-30 16:48 | XMS_ITS | Encounter Summary ---
Author Organization [facility] Address [address] [place] [id number] Care Team Providers Care Yardage Caller Name Role Phone Shanda Sands APRN Primary Care Provider [phone] Encounter Details Date Type Department Care Team [...] on filedocumented in this encounter Care Teams Yardage Caller Relationship Specialty Start Date End Date Shanda Sands APRN [address] [place] [address] PCP - General Internal Medicine 01/29/25 documented as of this encounter
--- OUTSIDE RECORDS SUMMARY | 2025-03-30 16:48 | XMS_ITS | Clinical Summary ---
Author Organization [facility] Address [address] [place] [address] Care Team Providers Care Hat Blocking Machine Operator Name Role Phone Shanda Sands BIANCA Primary Care Provider [phone] Allergies Active Allergy Reactions Criticality Noted Date Comments Azithromycin Hives Medium 08/30/2015 azithromycin Medications albuterol 108 (90 Base) MCG/ACT inhaler INHALE 2 PUFFS BY MOUTH EVERY 4 TO 6 HOURS NEEDED FOR SHORTNESS OF BREATH OR WHEEZING Active celecoxib (CeleBREX) 200 MG capsule Take 1 capsule by mouth daily. 5 Active DULoxetine (Cymbalta) [address] capsule TAKE 1 CAPSULE BY MOUTH TWICE DAILY FOR DEPRESSION 5 Active esomeprazole (NexIUM) [address] capsule daily. 4 Active furosemide (Lasix) 20 MG tablet 5 Active levocetirizine (Xyzal) 5 MG tablet Take 1 tablet by mouth daily. 5 Active methocarbamol (Robaxin) 750 MG tablet Take 1 tablet by mouth 3 times a day as needed for muscle spasms. 5 Active pregabalin (Lyrica) 150 MG capsule Take 1 capsule by mouth 2 times a day. 5 Active primidone (Mysoline) 50 MG tablet TAKE 2 TABLETS BY MOUTH 4 TIMES DAILY FOR SEIZURES 5 Active rizatriptan DIRECTOR OUTPATIENT SERVICES (Maxalt-DIRECTOR OUTPATIENT SERVICES) 10 MG disintegrating tablet Dissolve 1 tablet on the tongue daily as needed. Active denosumab (Prolia) 60 MG/ML injection Inject 1 mL under the skin 1 time. Active Active Problems No known active problems Encounters Date Type Department Care Team Description 03/13/2025 3:00 PM EST Consult [facility] [address] [place] [address] Sandra Kern MD CIDP (chronic inflammatory demyelinating polyneuropathy) ([facility]) (Primary Dx) 03/13/2025 Travel 02/27/2025 Orders Only External Location [address] [place] [id number] Provider, External 12/30/2024 Orders Only External Location [address] [place] [phone] Provider, External from Last 3 Months Family History Medical History Relation Name Comments Hypertension Father Tremor Father Heart attack Mother Hip fracture Mother Hypertension Mother Stroke Paternal Grandfather Stroke Paternal Grandmother Relation Name Status Comments Father Alive Mother Alive Paternal Grandfather Paternal Grandmother Social History Tobacco Use Types Packs/Day Years [...] - - Body Mass Index - - Plan of Treatment Upcoming Encounters Date Type Department Care Team (Late st Contact Info) Description 04/24/2025 1:00 PM EST Office Visit [facility] [address] [place] [address] Sandra Kern MD [address] [place] [address] Health Maintenance Due Date Last Done Comments [facility]-Depression Screening 1975 [facility]-HIV Screening 1975 [facility]-Hepatitis C Screening 1975 [facility]-Medicare Annual Wellness (AWV) 1975 [facility]-/Child/Adol SDOH Screenings 1975 [id number] Vaccine (#1) 11/21/1980 [facility]- SDOH Screenings 11/21/1993 [facility]-Adult SDOH Screenings 11/21/1993 [facility]-Hepatitis B Vaccines (1 of 3 - 19+ 3-dose series) 11/21/1994 [facility]-Pneumococcal Vaccine: Pediatrics (0 to 5 Years) and At-Risk Patients (6 to 49 Years) (1 of 2 - PCV) 11/21/1994 CT Colonography 11/21/2020 Colonoscopy 11/21/2020 FIT-DNA 11/21/2020 FIT 11/21/2020 FOBT 11/21/2020 Sigmoidoscopy 11/21/2020 [facility]-Colorectal Cancer Screening 11/21/2020 [facility]-Influenza Vaccine (#1) 2024 [facility]-Zoster Vaccines (1 of 2) 11/21/2025 [facility]-DTaP,Tdap,and Td Vaccine s (2 - Td or Tdap) 07/11/2030 07/11/2020 [facility]-Cervical Cancer Screening Discontinued [facility]-HPV/Cotest Discontinued 04/18/1991 [facility]-Pap Smear Discontinued 04/18/1991 HPV Vaccines Aged Out No longer eligi [...] THORACIC OUTSIDE IMAGES 02/27/2025 2:41 PM EDT MR NEURO OUTSIDE IMAGES 12/30/2024 1:04 PM EDT CYTO DATA CONVERSION Routine 04/18/1991 12:00 AM EST from Last 3 Months or Most Recently Relevant to Health Maintenance Results * MR THORACIC OUTSIDE IMAGES (02/27/2025 2:41 PM EDT) Anatomical Region Laterality Modality Magnetic Resonan ce 02/27/2025 2:41 PM EDT us External Provider IMG MRI PROCEDURES Final Resul t * MR NEURO OUTSIDE IMAGES (12/30/2024 1:04 PM EDT) Anatomical Region Laterality Modality Magnetic Resonan ce 12/30/2024 1:04 PM EDT us External Provider IMG MRI PROCEDURES Final Resul t * Cytology (04/18/1991 12:00 AM EST) 04/18/1991 04/21/1991 Narrative SUNQUEST - 05/06/1991 12:00 AM EST [facility] MR #: [id number] [facility] [place], [place] [address] 1975 (Age: 15) FW Collect Date: 04/18/1991 00:00 Receipt Date: 04/21/1991 00:00 Page 1 DEPARTMENT OF PATHOLOGY AND LABORATORY MEDICINE CYTOPATHOLOGY REPORT Email: [email or web address] [phone] * Converted Case * This report may not match the original report format ATTENDING MD/Practitioner: Agueda River MD Service: OB Location: Reported: 05/06/1991 00:00 Collected: 04/18/1991 00:00 INTERPRETATION CERVICAL SCRAPE/ENDOCERVICAL BRUSH WITHIN NORMAL LIMITS. SATISFACTORY FOR INTERPRETATION. Electronically Signed Out WILLY Villarreal (ASCP) Mima Smith MD Cervical cytology is a [...] results is suggested (please call Microbiology at [phone] for results). CLINICAL INFORMATION: Menstrual History: {Not Provided} Date of Last Menstrual Period: {Not Provided} PAP SMEAR PERFORMED BY SPECIMEN DESCRIPTION: A: CERVICAL/VAGINAL SMEAR, PAP ICD: F: {Not Entered} SNOMED CODES: 1; [id number] In cases where a pathologist has signed out the report, the service has been rendered in part by a resident. The signing pathologist has performed and is responsible for the reported pathologic evaluation. [facility] Provider LAB PATHOLOGY ORDERABLES Fin al Result SUNQUEST from Last 3 Months or Most Recently Relevant to Health Maintenance Insurance [facility] [place] [address] Care Teams Hat Blocking Machine Operator Relationship Specialty Start Date End Date Shanda Sands, BIANCA [address] [place] [address] PCP - General 03/12/25
--- OUTSIDE RECORDS SUMMARY | 2025-03-30 16:48 | XMS_ITS | Encounter Summary ---
Author Organization [facility] Address [address] [place] [id number] Care Team Providers Care Spring Former Name Role Phone Wicho Shandabalbir VALENZUELA Primary Care Provider + [phone] Reason for Visit * Reason Onset Date Comments MICA RAYA- UPDATED REF FAX NUMBER 03/11/2025 Encounter Details Date Type Department Care Team (Late st Contact Info) Description 03/11/2025 Telephone [facility] NEUR[facility] [address] [facility] [address] [place], [place] [phone] Mica Raya PA-C [address] [facility] [address] [place] [address] MICA RAYA- UPDATED REF FAX NUMBER Social [...] RECEIVED REFERRAL. GAVE PT CURRENT FAX NUMBER [phone]. PLEASE REFAX REFERRAL TO CORRECT NUMBER. THANK YOU. documented in this encounter Plan of Treatment Not on file documented as of this encounter Visit Diagnoses Not on filedocumented in this encounter Care Teams Spring Former Relationship Specialty Start Date End Date Shanda Sands APRN [address] [place] [address] PCP - General Internal Medicine 01/29/25 documented as of this encounter
--- OUTSIDE RECORDS SUMMARY | 2025-03-30 16:48 | XMS_ITS | Encounter Summary ---
Author Organization [facility] Address [address] [place] [id number] Care Team Providers Care Linseed Oil Temperer Name Role Phone Shanda Sands APRN Primary [...] on filedocumented in this encounter Care Teams Linseed Oil Temperer Relationship Specialty Start Date End Date Shanda Sands APRN [address] [place] [address] PCP - General Internal Medicine 01/29/25 documented as of this encounter
--- OUTSIDE RECORDS SUMMARY | 2025-03-30 16:48 | XMS_ITS | Encounter Summary ---
Author Organization [facility] Address [address] [place] [address] Care Team Providers Care Dry Press Operator Name Role Phone Shanda Sands BIANCA Primary Care Provider [phone]- [phone] Encounter Details Date Type Department Care Team (Latest Contact Info) Description 03/13/2025 Travel Social History Tobacco Use Types Packs/Day Years Used Date Smoking Tobacco: Every Day Cigarettes 1 30 Started: 03/13/1995 Alcohol Use Standard Drinks/Week Comments Never 0 [...] Visit [place] [facility] [address] [place] [address] Sandra Kern MD [address] [place] [address] documented as of this encounter Visit Diagnoses Not on filedocumented in this encounter Additional Health Concerns Assessment Noted Time A fall risk assessment has been complete d for the patient 03/13/2025 3:17 PM EST A Body Mass Index follow-up plan has been documented for the patient 03/13/2025 7:16 PM EST documented as of this encounter Care Teams Dry Press Operator Relationship Specialty Start Date End Date Shanda Sands APRN [address] [place] [address] PCP - General 03/12/25 documented as of this encounter
== END 2025-03-30 23:59 | disposition home or self-care (01) ==
LOC: LAB.DROPOF 16:45
PROVIDERS: PCP Nurse Practitioner Family; Visit Provider Nurse Practitioner Family
DX: R68.89 Other general symptoms and signs (principal)
CPT/HCPCS: 87631